=== PATIENT | male | born 1965 | race Caucasian/White ===

== ENCOUNTER 2020-09-11 10:42 | Inpatient (IN) ==
[2020-09-11 11:48] LABS: Basophils # (auto) 0.01 K/uL (0-0.2); Basophils % (auto) 0.2 %; Eosinophils # (auto) 0.05 K/uL (0-0.5); Eosinophils % (auto) 1.1 %; Hematocrit (blood only) 33.5 % (42-52); Hemoglobin 10.2 g/dL (14.0-18.0); Immature Granulocytes # (auto) 0.01 K/uL (0.00-0.02); Immature Granulocytes % (auto) 0.2 %; Lymphocytes # (auto) 1.14 K/uL (1.2-3.4); Lymphocytes % (auto) 24.3 %; Mean Corpuscular Hemoglobin 24.6 pg (25-34); Mean Corpuscular Hgb Conc 30.4 g/dL (32-36); Mean Corpuscular Volume 80.9 fL (80-100); Mean Platelet Volume 8.9 fL (7.4-10.4); Monocytes # (auto) 0.45 K/uL (0.11-0.59); Monocytes % (auto) 9.6 %; Neutrophils # (auto) 3.04 K/uL (1.4-6.5); Neutrophils % (auto) 64.6 %; Platelet Count 408 K/uL (130-400); RDW Coefficient of Variation 16.2 % (11.5-14.5); RDW Standard Deviation 47.3 fL (36.4-46.3); Red Blood Count 4.14 M/uL (4.7-6.1)
--- NOTE | 2020-09-11 12:06 | XRay Report ---
XR chest 1V portable CLINICAL HISTORY: Chest Pain COMPARISON STUDY: No previous studies for comparison. FINDINGS: Patient is rotated. There is mild right basilar opacity. Lungs are clear. There is no pneum othorax or pleural effusion. Cardiac size is normal. Mediastinal contours are normal. There is no monserrat dence for pulmonary edema. IMPRESSION: Mild right basilar opacity. Atelectasis is favored although an infectious process could appear similar. ACT 112: Negative or not required by law. Electronically signed by: Juan Carlos Chan M.D. 09/11/2020 12:04 PM
[2020-09-11 12:10] LABS: Alanine Aminotransferase 22 U/L (12-78); Albumin Level 3.1 gm/dl (3.4-5.0); Aspartate Aminotransferase 15 U/L (15-37); BUN Creatinine Ratio 23.9 (10-20); Blood Urea Nitrogen 14 mg/dl (7-18); Calcium 8.8 mg/dl (8.5-10.1); Carbon Dioxide 30 mmol/L (21-32); Chloride 106 mmol/L (98-107); Creatinine Clr Calc Pharmacy 191.4 ml/min; Est GFR (Non-African American) 115.6 ml/min; Glucose 107 mg/dl (70-99); Lipase 60 U/L (73-393); Potassium 4.1 mmol/L (3.5-5.1); Sodium 140 mmol/L (136-145)
[2020-09-11 12:15] LABS: Albumin Globulin Ratio 0.7 (0.9-2); Alkaline Phosphatase 93 U/L (45-117); Bilirubin,Total 0.3 mg/dl (0.2-1); Globulin 4.6 gm/dl (2.5-4.0); Total Protein 7.7 gm/dl (6.4-8.2); Troponin I < 0.015 ng/ml (0-0.045)
[2020-09-11 12:22] LABS: Partial Thromboplastin Ratio 1.1; Partial Thromboplastin Time 29.6 Seconds (21.0-31.0); Prothrombin Time 10.4 Seconds (9.0-12.0)
[2020-09-11] MEDS ORDERED: OPTIRAY 320 125ml IV ONE (12:42)
--- NOTE | 2020-09-11 13:28 | CT Scan Report ---
CT ANGIOGRAPHY OF THE CHEST, PULMONARY EMBOLUS PROTOCOL CLINICAL HISTORY: Chest pain. Shortness of breath. Evaluate for pulmonary embolus. COMPARISON STUDY: Chest radiograph performed earlier today. TECHNIQUE: Following IV administration of Optiray, helical axial images of the chest were obtained ut ilizing the pulmonary embolus protocol. Maximal intensity projections and sagittal and coronal refor mats were viewed on an independent 3D workstation. IV contrast was administered without complication . Automated exposure control was utilized for the study. A dose lowering technique was utilized adh ering to the principles of ALARA. CT DOSE: 2016.54 mGy.cm FINDINGS: Left glenohumeral joint effusion is noted. This contains multiple calcifications. This is likely degenerative. No pulmonary emboli are identified. There is no thoracic aortic dissection. Mild cardiomegaly is noted. No enlarged thoracic lymph nodes are present. There is no consolidation to sung ggest pneumonia. Note is made of right chest wall infiltration and fluid which involves the right low er chest wall and upper abdominal musculature. No soft tissue gas is present. No fluid collection is identified. There are postoperative findings within the mid to lower cervical spine and the upper tho racic spine. A 1.7 cm right apical irregular opacity is noted. There is also mild left upper lobe par amediastinal opacity. IMPRESSION: 1. No pulmonary emboli identified. 2. No consolidation to suggest pneumonia. 3. Moderate right chest wall infiltration and fluid involving the musculature of the right lower ches t wall and right upper abdomen. The findings are nonspecific but favor an infectious or inflammatory process in the absence of recent trauma. Findings discussed with Dr. Hawk at time of dictation. 4. Bilateral upper lobe paramediastinal opacity which favors post radiation change. Follow up chest C T in 6 months to ensure stability is recommended. 5. Left glenohumeral joint effusion. This is likely degenerative. ACT 112: Negative or not required by law. Electronically signed by: Juan Carlos Chan M.D. 09/11/2020 1:26 PM
--- NOTE | 2020-09-11 13:33 | Electrocardiogram Report ---
Test Reason : Blood Pressure : / mmHG Vent. Rate : 082 BPM Atrial Rate : 082 BPM P-R Int : 140 ms QRS Dur : 072 ms QT Int : 356 ms P-R-T Axes : 050 -18 -01 degrees QTc Int : 415 ms Poor data quality, interpretation may be adversely affected Normal sinus rhythm Minimal voltage criteria for LVH, may be normal variant Nonspecific ST abnormality Abnormal ECG No previous ECGs available Confirmed by Louie Cruz ([id number]) on 09/11/2020 1:33:04 PM Referred By: REFERRED SELF Confirmed By:Louie Cruz
--- NOTE | 2020-09-11 13:48 | CT Scan Report ---
CT OF THE ABDOMEN AND PELVIS WITH CONTRAST CLINICAL HISTORY: sob, enlarging abd COMPARISON STUDY: None. TECHNIQUE: Following IV administration of Optiray, axial images of the abdomen and pelvis were obtain ed from the lung bases to the proximal femurs. Images were reviewed in the axial, sagittal, and coron al planes. IV contrast was administered without complication. Automated exposure control was utilize d for the study. A dose lowering technique was utilized adhering to the principles of ALARA. FINDINGS: Please note that the chest CT will be reported separately. Note is made of moderate infilt ration of the right lower chest wall and right upper abdominal wall which involves the underlying mus culature. No soft tissue gas is present. No well-defined collection is identified to suggest an absce ss. There is muscular enhancement. The liver, adrenal glands and pancreas are unremarkable. Mild sple nomegaly is noted. Several left renal lesions are too small to characterize. There is no hydronephros is. There is no evidence for a bowel obstruction. Bladder is distended. The appendix is normal. Calib er and wall thickness of small and large bowel are normal. Note is made of infiltration within the mu scular adjacent to the right hip as well as the overlying soft tissues. There are suspected multiple rim enhancing fluid collections within the musculature, including a 3.1 cm collection within the righ t gluteus medius. There is a right hip joint effusion. Underlying bone appears intact. There is an ad ditional rim-enhancing fluid collection measuring approximately 3.9 cm within the vastus lateralis. T here is suspected cholelithiasis. IMPRESSION: 1. Right hip joint effusion with moderate inflammation involving the adjacent right hip musculature a nd overlying soft tissues. Multiple rim-enhancing intramuscular fluid collections, as described above . Although sterility cannot be assessed by CT, the findings favor an infectious process. An inflammat ory process could appear similar. Findings discussed with Dr. Hawk at time of dictation. 2. Additional apparent inflammation involving the right lower chest wall and right upper abdominal wa ll with involvement of the underlying musculature. Muscular enhancement without well-defined fluid co llection to suggest abscess. This also favors an infectious or inflammatory process. 3. No bowel obstruction. No bowel wall thickening. Normal appendix. ACT 112: Negative or not required by law. Electronically signed by: Juan Carlos Chan M.D. 09/11/2020 1:47 PM
[2020-09-11] MEDS ORDERED: CEFEPIME 2,000 MG/20 ML VIAL IV STA (13:57)
--- NOTE | 2020-09-11 15:01 | Emergency Department Note ---
History of Present Illness General Chief complaint: Shortness of Breath/Dyspnea Time Seen by Provider: 09/11/20 11:12 History of Present Illness 55-year-old male presents to the ED with a chief complaint of some shortness of breath. The patient states that he has been told in the past that he has had hepatosplenomegaly for the past 6 to 9 months. Today he states that he awoke and was not able to get his air very good. He states that it felt like something was pushing up on his left side of his diaphragm keeping him from getting a good excursion of air. 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 He also reports decreased sensation in his lower extremities. He has no other complaints at this time. Home Medications Medication Instructions Recorded Confirmed Type ascorbic acid (vitamin C) 1,000 mg 1 g PO QAM 07/09/18 09/11/20 History tablet (Vitamin C) furosemide 20 mg tablet 40 mg PO DAILY PRN 07/09/18 09/11/20 History magnesium oxide 400 mg PO 3XWK 07/09/18 09/11/20 History pyridoxine (vitamin B6) 100 mg 100 mg PO QAM 07/09/18 09/11/20 History tablet tizanidine 4 mg tablet 4 mg PO HS 07/09/18 09/11/20 History omeprazole 40 mg capsule,delayed 40 mg PO QPM 08/18/18 09/11/20 History release tamsulosin 0.4 mg capsule 0.4 mg PO HS 08/18/18 09/11/20 History acetaminophen 325 mg capsule 650 mg PO Q6H PRN 09/18/18 09/11/20 History (Tylenol) diphenhydramine 25 2 tab PO HS PRN 09/11/20 09/11/20 History mg-acetaminophen 500 mg tablet (Tylenol PM Extra Strength) Allergies Allergy/AdvReac Type Severity Reaction Status Date / Time amantadine Allergy Severe CHEST Verified 09/11/20 11:51 PAIN, ANXIETY vancomycin Allergy Severe Rash Verified 09/11/20 11:51 Past Med/Surg History Medical History Anemia iron deficiency Chronic neck pain GERD (gastroesophageal reflux disease) 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 History of gastric ulcer Left arm numbness chronic s/p left arm surgery 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 (no further details)- paralyzed from the chest down initially which sign ificantly improved with (able to walk with crunches) with therapy, increased LE weakness 2007 and now patient wheelchair bound felt 2/2 nerve damage Surgical History H/O bursectomy left elbow H/O cervical spine surgery 1990 (benign cystectomy) + scar tissue removal H/O eye surgery foreign body (metal) removal from left eye History of esophagogastroduodenoscopy (EGD) EGD: 07/16/18: [facility] sedation at [facility] Family History Other No family history of adverse response to anesthesia Social History Smoking Status: Never smoker Second Hand Exposure: Yes (parents smoked); Hx Alcohol Use: Yes Alcohol type: hard liquor Hx Substance Use: No Preferred Language: Serbian Communication Ability: Effective Concession Manager Required: No Beliefs That Will Affect Care: None Current Living Situation: Spouse and Family Current Living Situation Comment: Lives with and daughter and 1 granddaughter Feels Safe at Home: Yes Assistive Devices: Glasses and Walker Review of Systems As above otherwise negative for 10 systems Physical Exam Vital Signs Vital Signs - 24 hr 09/11/20 10:54 09/11/20 11:30 09/11/20 12:00 Temperature 36.5 C Temperature Source Oral Pulse Rate 80 Pulse Rate [Apical] 78 74 Pulse Rate from SpO2 Sensor Respiratory Rate 20 20 20 Respiratory Effort / Characteristics Non-Labored Spontaneous Non-Labored Spontaneous Non-Labored Respiratory Depth Normal Normal Normal Respiratory Pattern Regular Regular Regular Blood Pressure 139/80 Blood Pressure [Right Arm] 141/82 H 100/76 Blood Pressure Mean 99 Blood Pressure Mean [Right Arm] 101 84 Pulse Oximetry 98 96 95 Oxygen Delivery Method Room Air Room Air Room Air Sepsis Recent Fever Within 48 Hours No Sepsis New/Unexplained Change in Mental Status N/A Sepsis Action Taken by Nursing No Action Required 09/11/20 12:30 09/11/20 13:01 Temperature Temperature Source Pulse Rate 82 Pulse Rate [Apical] 78 Pulse Rate from SpO2 Sensor 81 Respiratory Rate 20 24 Respiratory Effort / Characteristics Non-Labored Spontaneous Respiratory Depth Normal Respiratory Pattern Regular Blood Pressure 116/57 L Blood Pressure [Right Arm] 115/76 Blood Pressure Mean 76 Blood Pressure Mean [Right Arm] 89 Pulse Oximetry 96 98 Oxygen Delivery Method Room Air Sepsis Recent Fever Within 48 Hours Sepsis New/Unexplained Change in Mental Status Sepsis Action Taken by Nursing CONSTITUTIONAL/VITAL SIGNS: Reviewed / noted above. GENERAL: Non-toxic in appearance. INTEGUMENTARY: Warm, dry, and [place]. HEAD: Normocephalic. EYES: without scleral icterus or trauma. ENT/OROPHARYNX: clear and moist. LYMPHADENOPATHY/NECK: Is supple without lymphadenopathy or meningismus. RESPIRATORY: Lungs clear and equal. CARDIOVASCULAR: Regular rate and rhythm. GI/ABDOMEN: Soft and nontender. Abdomen seems to be abnormally shaped with increased distention on the left compared to the right. EXTREMITIES: Warm and well perfused. Right lower extremity is more pinkish or erythematous than the left with some increased warmth. There is a small wound in the popliteal region from skin touching skin because the patient's leg is loosely bent. The patient also has a healing wound in his right elbow from a previous injury where he states that he hit his wheelchair with his elbow. BACK: No CVA tenderness. NEUROLOGICAL: Intact without focal deficits. PSYCHIATRIC: normal affect. MUSCULOSKELETAL: Normally developed with good muscle tone. TRIAGE NURSING DOCUMENTATION REVIEWED. Course Administered Medications Discontinued Medications Cefepime HCl (Maxipime) 2,000 mg in 20 mls @ 5 mls/min IV NOW STA; Protocol Stop: 09/11/20 14:00 Last Admin: 09/11/20 14:11 Dose: 5 mls/min Documented by: [id number] Ioversol (Optiray 320 125ml) 120 ml IV ONCE ONE Stop: 09/11/20 12:43 Last Admin: 09/11/20 12:42 Dose: 120 ml Documented by: [id number] Medical Decision Making Differential Diagnosis The differential was considered includes acute myocardial infarction, acute coronary syndrome, myocarditis, pericarditis, pericardial effusions /tamponad, esophageal perforation, pulmonary embolism, pneumonia, pneumothorax, cardiomyopathy, congestive heart, anemia , COPD/asthma exacerbation. Medical Records Attestation: I reviewed the patient's medical records. Home Medications Current Medication List: was personally reviewed by me Laboratory Data Result diagrams: 09/11/20 11:33 09/11/20 11:33 Lab Results 09/11/20 09/11/20 09/11/20 Range/Units 11:30 11:33 11:33 WBC 4.70 L (4.8-10.8) K/uL RBC 4.14 L (4.7-6.1) M/uL Hgb 10.2 L (14.0-18.0) g/dL Hct 33.5 L (42-52) % MCV 80.9 (80-100) fL MCH 24.6 L (25-34) pg MCHC 30.4 L (32-36) g/dL RDW Std Deviation 47.3 H (36.4-46.3) fL RDW Coeff of Brendon 16.2 H (11.5-14.5) % Plt Count 408 H (130-400) K/uL MPV 8.9 (7.4-10.4) fL Immature Gran % (Auto) 0.2 % Neut % (Auto) 64.6 % Lymph % (Auto) 24.3 % Avery % (Auto) 9.6 % Eos % (Auto) 1.1 % Baso % (Auto) 0.2 % Neut # (Auto) 3.04 (1.4-6.5) K/uL Lymph # (Auto) 1.14 L (1.2-3.4) K/uL Avery # (Auto) 0.45 (0.11-0.59) K/uL Eos # (Auto) 0.05 (0-0.5) K/uL Baso # (Auto) 0.01 (0-0.2) K/uL Immature Gran # (Auto) 0.01 (0.00-0.02) K/uL ESR (0-20) mm/hr PT 10.4 (9.0-12.0) Seconds INR 1.0 (0.9-1.1) APTT 29.6 (21.0-31.0) Seconds PTT Ratio 1.1 Sodium 140 (136-145) mmol/L Potassium 4.1 (3.5-5.1) mmol/L Chloride 106 (98-107) mmol/L Carbon Dioxide 30 (21-32) mmol/L Anion Gap 4.0 (3-11) BUN 14 (7-18) mg/dl Creatinine 0.59 L (0.6-1.4) mg/dl Est Cr Clr Drug Dosing 191.4 ml/min Est GFR ( Amer) 134.0 ml/min Est GFR (Non-Af Amer) 115.6 ml/min BUN/Creatinine Ratio 23.9 H (10-20) Glucose 107 H (70-99) mg/dl Calcium 8.8 (8.5-10.1) mg/dl Total Bilirubin 0.3 (0.2-1) mg/dl AST 15 (15-37) U/L ALT 22 (12-78) U/L Alkaline Phosphatase 93 (45-117) U/L Troponin I < 0.015 (0-0.045) ng/ml Total Protein 7.7 (6.4-8.2) gm/dl Albumin 3.1 L (3.4-5.0) gm/dl Globulin 4.6 H (2.5-4.0) gm/dl Albumin/Globulin Ratio 0.7 L (0.9-2) Lipase 60 L (73-393) U/L 09/11/20 Range/Units 11:33 WBC (4.8-10.8) K/uL RBC (4.7-6.1) M/uL Hgb (14.0-18.0) g/dL Hct (42-52) % MCV (80-100) fL MCH (25-34) pg MCHC (32-36) g/dL RDW Std Deviation (36.4-46.3) fL RDW Coeff of Brendon (11.5-14.5) % Plt Count (130-400) K/uL MPV (7.4-10.4) fL Immature Gran % (Auto) % Neut % (Auto) % Lymph % (Auto) % Avery % (Auto) % Eos % (Auto) % Baso % (Auto) % Neut # (Auto) (1.4-6.5) K/uL Lymph # (Auto) (1.2-3.4) K/uL Avery # (Auto) (0.11-0.59) K/uL Eos # (Auto) (0-0.5) K/uL Baso # (Auto) (0-0.2) K/uL Immature Gran # (Auto) (0.00-0.02) K/uL ESR 94 H (0-20) mm/hr PT (9.0-12.0) Seconds INR (0.9-1.1) APTT (21.0-31.0) Seconds PTT Ratio Sodium (136-145) mmol/L Potassium (3.5-5.1) mmol/L Chloride (98-107) mmol/L Carbon Dioxide (21-32) mmol/L Anion Gap (3-11) BUN (7-18) mg/dl Creatinine (0.6-1.4) mg/dl Est Cr Clr Drug Dosing ml/min Est GFR ( Amer) ml/min Est GFR (Non-Af Amer) ml/min BUN/Creatinine Ratio (10-20) Glucose (70-99) mg/dl Calcium (8.5-10.1) mg/dl Total Bilirubin (0.2-1) mg/dl AST (15-37) U/L ALT (12-78) U/L Alkaline Phosphatase (45-117) U/L Troponin I (0-0.045) ng/ml Total Protein (6.4-8.2) gm/dl Albumin (3.4-5.0) gm/dl Globulin (2.5-4.0) gm/dl Albumin/Globulin Ratio (0.9-2) Lipase (73-393) U/L Imaging Data Radiologist's Impression: Abdomen/Pelvis CT 09/11/20 11:26 CT OF THE ABDOMEN AND PELVIS WITH CONTRAST CLINICAL HISTORY: sob, enlarging abd COMPARISON STUDY: None. TECHNIQUE: Following IV administration of Optiray, axial images of the abdomen and pelvis were obtained from the lung bases to the proximal femurs. Images were reviewed in the axial, sagittal, and coronal planes. IV contrast was admi nistered without complication. Automated exposure control was utilized for the study. A dose lowering technique was utilized adhering to the principles of ALARA. FINDINGS: Please note that the chest CT will be reported separately. Note is made of moderate infiltration of the right lower chest wall and right upper abdominal wall which involves the underlying musculature. No soft tissue gas is present. No well-defined collection is identified to suggest an abscess. There is muscular enhancement. The liver, adrenal glands and pancreas are unremarkable. Mild splenomegaly is noted. Several left renal lesions are too small to characterize. There is no hydronephrosis. There is no evidence for a bowel obstruction. Bladder is distended. The appendix is normal. Caliber and wall thickness of small and large bowel are normal. Note is made of infiltration within the muscular adjacent to the right hip as well as the overlying soft tissues. There are suspected multiple rim enhancing fluid collections within the musculature, including a 3.1 cm collection within the right gluteus medius. There is a right hip joint effusion. Underlying bone appears intact. There is an additional rim-enhancing fluid collection measuring approximately 3.9 cm within the vastus lateralis. There is suspected cholelithiasis. IMPRESSION: 1. Right hip joint effusion with moderate inflammation involving the adjacent right hip musculature and overlying soft tissues. Multiple rim-enhancing intramuscular fluid collections, as described above. Although sterility cannot be assessed by CT, the findings favor an infectious process. An inflammatory process could appear similar. Findings discussed with Dr. Hawk at time of dictation. 2. Additional apparent inflammation involving the right lower chest wall and r ight upper abdominal wall with involvement of the underlying musculature. Muscular enhancement without well-defined fluid collection to suggest abscess. This also favors an infectious or inflammatory process. 3. No bowel obstruction. No bowel wall thickening. Normal appendix. ACT 112: Negative or not required by law. Electronically signed by: Juan Carlos Chan M.D. 09/11/2020 1:47 PM Chest X-Ray 09/11/20 11:26 XR chest 1V portable CLINICAL HISTORY: Chest Pain COMPARISON STUDY: No previous studies for comparison. FINDINGS: Patient is rotated. There is mild right basilar opacity. Lungs are clear. There is no pneumothorax or pleural effusion. Cardiac size is normal. Mediastinal contours are normal. There is no evidence for pulmonary edema. IMPRESSION: Mild right basilar opacity. Atelectasis is favored although an infectious process could appear similar. ACT 112: Negative or not required by law. Electronically signed by: Juan Carlos Chan M.D. 09/11/2020 12:04 PM Chest CTA 09/11/20 11:27 CT ANGIOGRAPHY OF THE CHEST, PULMONARY EMBOLUS PROTOCOL CLINICAL HISTORY: Chest pain. Shortness of breath. Evaluate for pulmonary embolus. COMPARISON STUDY: Chest radiograph performed earlier today. TECHNIQUE: Following IV administration of Optiray, helical axial images of the chest were obtained utilizing the pulmonary embolus protocol. Maximal intensity projections and sagittal and coronal reformats were viewed on an independent 3D workstation. IV contrast was administered without complication. Automated exposure control was utilized for the study. A dose lowering technique was utilized adhering to the principles of ALARA. CT DOSE: 2016.54 mGy.cm FINDINGS: Left glenohumeral joint effusion is noted. This contains multiple calcifications. This is likely degenerative. No pulmonary emboli are identified. There is no thoracic aortic dissection. Mild cardiomegaly is noted. No enlarged thoracic lymph nodes are present. There is no consolidation to suggest pneumonia. Note is made of right chest wall infiltration and fluid which involves the right lower chest wall and upper abdominal musculature. No soft tissue gas is present. No fluid collection is identified. There are post operative findings within the mid to lower cervical spine and the upper thoracic spine. A 1.7 cm right apical irregular opacity is noted. There is also mild left upper lobe paramediastinal opacity. IMPRESSION: 1. No pulmonary emboli identified. 2. No consolidation to suggest pneumonia. 3. Moderate right chest wall infiltration and fluid involving the musculature of the right lower chest wall and right upper abdomen. The findings are nonspecific but favor an infectious or inflammatory process in the absence of recent trauma. Findings discussed with Dr. Hawk at time of dictation. 4. Bilateral upper lobe paramediastinal opacity which favors post radiation araujo ge. Follow up chest CT in 6 months to ensure stability is recommended. 5. Left glenohumeral joint effusion. This is likely degenerative. ACT 112: Negative or not required by law. Electronically signed by: Juan Carlos Chan M.D. 09/11/2020 1:26 PM ECG Data Additional Comments: Twelve-lead EKG: Per my interpretation there is normal sinus rhythm at a rate of 82. No ST elevation. No PVCs. Normal QTC. MDM Narrative Patient presents to the ED with a chief complaint of dyspnea. The patient's EKG shows a normal sinus rhythm. CBC and chemistry panel was unremarkable. Troponin was negative. Chest x-ray did not show acute process. CT scan of the chest reveals a moderate right chest wall infiltration and fluid involving the musculature of the right lower chest wall and right upper abdomen. Nonspecific findings but could indicate infectious or inflammatory process. CT scan of the pelvis was performed as well. There appears to be some right hip joint effusion with moderate inflammation involving the adjacent right hip musculature and soft tissue with some ring-enhancing collections of fluid suggestive of infectious etiology. The patient was started on IV cefepime. Vital signs are stable. I spoke with the hospitalist, who will see the patient for further inpatient evaluation and care. Impression & Plan Cellulitis and abscess of right leg, Abdominal infection Discharge Plan Visit Data Chief Complaint: Shortness of Breath/Dyspnea ED Provider: Harsh Hawk Discharge Problem: Cellulitis and abscess of right leg, Abdominal infection Patient Disposition: Being Evaluated by Hospitalist Forms Stand Alone Forms: My [facility] Prescriptions Prescriptions: No Action ascorbic acid (vitamin C) [Vitamin C] 1,000 mg Tablet 1 g PO QAM RF: 0 tizanidine 4 mg Tablet 4 mg PO HS RF: 0 furosemide 20 mg Tablet 40 mg PO DAILY PRN (Reason: Fluid Retention) RF: 0 pyridoxine (vitamin B6) 100 mg Tablet 100 mg PO QAM RF: 0 magnesium oxide 400 mg magnesium Tablet 400 mg PO [id number] RF: 0 omeprazole 40 mg Capsule,Delayed Release(Dr/Ec) 40 mg PO QPM RF: 0 tamsulosin 0.4 mg Capsule 0.4 mg PO HS RF: 0 acetaminophen [Tylenol] 325 mg Capsule 650 mg PO Q6H PRN (Reason: Pain) RF: 0 diphenhydramine-acetaminophen [Tylenol PM Extra Strength] 25-500 mg Tablet 2 tab PO HS PRN (Reason: Sleep) RF: 0 Referrals Referrals: Alexis Yost MD [Primary Care Provider] -
[2020-09-11 15:20] LABS: C Reactive Protein 3.42 mg/dl (0-0.29)
--- NOTE | 2020-09-11 15:56 | History & Physical Report ---
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 He said that his symptoms improved after passing some flatulence. Pt said that he has been having a lot of swelling in his lower extremities. He said that he was evaluated by his PCP few month ago and was placed on Lasix with no improvement. He said that few months ago he was able to crawled or stood on his legs, but now he is unable to do them. CT Ches showed moderate right chest wall infiltration and fluid involving the musculature of the right lower chest wall and right upper abdomen. The findings are nonspecific but favor an infectious or inflammatory process in the absence of recent trauma. CT abdomen and pelvis showed right hip joint effusion with moderate inflammation involving the adjacent right hip musculature and overlying soft tissues. Multiple rim-enhancing intramuscular fluid collections. Pt was started on Rocephin and Daptomycin IV. Will start on IV lasix 40mg. Will consult ortho to eval for the ring enhancing intramuscular fluid collections. Will monitor closely for sign of infection. Continue monitor closely. MD Rosalinda (3) Swelling of both lower extremities: Plan: Likely in setting of dependent edema, versus underlying inflammatory process Had echocardiogram as outpatient which revealed EF 60 to 64%, mild TR, mild pulmonary hypertension on 08/17/2020, no evidence of heart failure Encourage leg elevation and NIRMAL hose Continue daily Lasix (4) Ependymoma: (5) Chronic paraplegia: (6) Spastic hemiparesis: Plan: Status post surgical resection and XRT in the Currently following [place] neurosurgery, to reestablish with new provider in September Continue tizanidine at bedtime (7) Anemia: Plan: Documented iron deficiency in epic H&H 10.2 and 33.5 No signs or symptoms of bleeding Monitor (8) GERD (gastroesophageal reflux disease): Plan: continue PPI (9) DVT prophylaxis: Plan: lovenox sq q12 Dispo: med tele PCP: Priyank FULL CODE Pt was seen and examined in collaboration with Dr. Tellez, please see addendum History of Present Illness Chief Complaint: Fullness in left upper quadrant and feeling of inability to take deep breath prior to arrival. 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 Patient's is at bedside who also helps elicit history. He states over the past 6 months he has noticed a gradual increase in abdominal girth and increase in lower extremity swelling. He was seen and evaluated by PCP at the end of May and was placed on daily Lasix. He has been doing this without significant improvement. He also has noticed increase in weight. Due to being wheelchair-bound he is unable to elevate lower extremities and he is unable to wear compression stockings at home due to it being too tight. He was concerned this morning when he developed left upper quadrant fullness and shortness of breath; however, upon arriving to ED he did pass flatulence x5 which alleviated this pressure. He does elicit that he has underlying hepatosplenomegaly for which she is to see gastroenterology in September for. He was concerned this could be related to this. He denies any recent fever, chills, sweats, lightheadedness, dizziness, headache, change in vision, chest pain, shortness of breath, cough, URI symptoms, nausea, vomiting, abdominal pain. He also denies any musculoskeletal pain however he does state from the waist down he has inability to feel pain. feels that his right lower extremity is more red and warm compared to the left. This was just noticed today. In ED patient remained hemodynamically stable and afebrile. Lab work notable for WBC 4.70, H&H 10.2 and 33.5, platelet 408, ESR 94, CRP 3.42, BUN 14, creatinine 0.59, procalcitonin WNL. He underwent CT chest to rule out PE and CT abdomen pelvis secondary to abdominal fullness and distended abdomen. Chest CT revealed Moderate right chest wall infiltration and fluid involving the musculature of the right lower chest wall and right upper abdomen. The findings are nonspecific but favor an infectious or inflammatory process in the absence of recent trauma. CT a/p revealed . Right hip joint effusion with moderate inflammation involving the adjacent right hip musculature and overlying soft tissues. Multiple rim-enhancing intramuscular fluid collections, as described above. Although sterility cannot be assessed by CT, the findings favor an infectious process. An inflammatory process could appear similar. He was started on IV cefepime for underlying cellulitis. Allergies Allergy/AdvReac Type Severity Reaction Status Date / Time amantadine Allergy Severe CHEST Verified 09/11/20 11:51 PAIN, ANXIETY vancomycin Allergy Severe Rash Verified 09/11/20 11:51 Home Medications Medication Instructions Recorded Confirmed Type ascorbic acid (vitamin C) 1,000 mg 1 g PO QAM 07/09/18 09/11/20 History tablet (Vitamin C) furosemide 20 mg tablet 40 mg PO DAILY PRN 07/09/18 09/11/20 History magnesium oxide 400 mg PO 3XWK 07/09/18 09/11/20 History pyridoxine (vitamin B6) 100 mg 100 mg PO QAM 07/09/18 09/11/20 History tablet tizanidine 4 mg tablet 4 mg PO HS 07/09/18 09/11/20 History omeprazole 40 mg capsule,delayed 40 mg PO QPM 08/18/18 09/11/20 History release tamsulosin 0.4 mg capsule 0.4 mg PO HS 08/18/18 09/11/20 History acetaminophen 325 mg capsule 650 mg PO Q6H PRN 09/18/18 09/11/20 History (Tylenol) diphenhydramine 25 2 tab PO HS PRN 09/11/20 09/11/20 History mg-acetaminophen 500 mg tablet (Tylenol PM Extra Strength) Past Med/Surg History Medical History Anemia iron deficiency Chronic neck pain Ependymoma GERD (gastroesophageal reflux disease) 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 History of gastric ulcer Left arm numbness chronic s/p left arm surgery Spastic hemiparesis 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 (no further details)- paralyzed from the chest down initially which significantly improved with (able to walk with crunches) with therapy, increased LE weakness 2007 and now patient wheelchair bound felt 2/2 nerve damage Surgical History H/O bursectomy left elbow H/O cervical spine surgery 1990 (benign cystectomy) + scar tissue removal H/O eye surgery foreign body (metal) removal from left eye History of esophagogastroduodenoscopy (EGD) EGD: 07/16/18: MAC sedation at [facility] Family History Father Hypertension Other No family history of adverse response to anesthesia Social History Smoking Status: Never smoker Second Hand Exposure: No; Do You Dip or Chew Tobacco: No; Tobacco Cessation Education Requested by Patient: No Hx Alcohol Use: No Hx Substance Use: No Preferred Language: Comoran Communication Ability: Effective Infrastructure Engineer Required: No Beliefs That Will Affect Care: None Current Living Situation: Spouse Current Living Situation Comment: Lives with and daughter and 1 granddaughter Other Information That Helps Us Care for You: No Feels Safe at Home: Yes Safety Concerns: Feels Safe At This Time Assistive Devices: Wheelchair Review of Systems Review of Systems: All systems reviewed & are unremarkable except as noted in HPI & below Physical Exam Physical Exam: Constitutional: WD/WN, M, vitals as above, NAD, sitting up in bed, pleasant, conversing easily Head: Normocephalic, Atraumatic Eyes: PERRL, conjunctivae normal, anicteric sclerae ENMT: external ear and nose normal, oropharynx normal Neck: trachea midline, no thyromegaly normal visual inspection Respiratory: normal respiratory effort, lungs clear to auscultation, no wheeze, rales, rhonchi. Normal insp/exp effort, no accessory muscle use Cardiovascular: RRR, no murmur, significant bilateral lower extremity edema, +4 to right and +3 to left, right lower extremity with warmth and erythema extending to right knee Vessels: no JVD or carotid bruit Chest: normal inspection of chest Abdomen: Protuberant and distended abdomen, firm, normal bowel sounds, soft, nontender, hepatomegaly appreciated Musculoskeletal: no cyanosis or clubbing, paraparesis to bilateral lower extremities, hyperreflexic Skin: no rashes, warm and dry normal turgor Neurologic: PERRL, EOMI, accommodation nl, no face palsy, no dysarthria CN's II-XI intact bilaterally and moves all extremities Psychiatric: A+Ox3, euthymic affect Lymphatic: no cervical or axillary lymphadenopathy : deferred Results & Data Results & Data ([facility]) Vital Signs (Past 12 Hours) Vital Signs Temp Pulse Pulse Resp BP BP Pulse Ox 09/11/20 14:30 80 24 112/68 98 09/11/20 14:01 76 15 122/65 99 09/11/20 13:30 139/79 99 09/11/20 13:01 82 24 98 09/11/20 12:30 78 20 116/57 L 115/76 96 09/11/20 12:00 74 20 100/76 95 09/11/20 11:30 78 20 141/82 H 96 09/11/20 10:54 36.5 C 80 20 139/80 98 Diagnostic Findings Abdomen/Pelvis CT 09/11/20 11:26 CT OF THE ABDOMEN AND PELVIS WITH CONTRAST CLINICAL HISTORY: sob, enlarging abd COMPARISON STUDY: None. TECHNIQUE: Following IV administration of Optiray, axial images of the abdomen and pelvis were obtained from the lung bases to the proximal femurs. Images were reviewed in the axial, sagittal, and coronal planes. IV contrast was administered without complication. Automated exposure control was utilized for the study. A dose lowering technique was utilized adhering to the principles of ALARA. FINDINGS: Please note that the chest CT will be reported separately. Note is made of moderate infiltration of the right lower chest wall and right upper abdominal wall which involves the underlying musculature. No soft tissue gas is present. No well-defined collection is identified to suggest an abscess. There is muscular enhancement. The liver, adrenal glands and pancreas are unremarkable. Mild splenomegaly is noted. Several left renal lesions are too small to characterize. There is no hydronephrosis. There is no evidence for a bowel obstruction. Bladder is distended. The appendix is normal. Caliber and wall thickness of small and large bowel are normal. Note is made of infiltration within the muscular adjacent to the right hip as well as the overlying soft tissues. There are suspected multiple rim enhancing fluid collections within the musculature, including a 3.1 cm collection within the right gluteus medius. There is a right hip joint effusion. Underlying bone appears intact. There is an additional rim-enhancing fluid collection measuring approximately 3.9 cm within the vastus lateralis. There is suspected cholelithiasis. IMPRESSION: 1. Right hip joint effusion with moderate inflammation involving the adjacent right hip musculature and overlying soft tissues. Multiple rim-enhancing i ntramuscular fluid collections, as described above. Although sterility cannot be assessed by CT, the findings favor an infectious process. An inflammatory process could appear similar. Findings discussed with Dr. Hawk at time of dictation. 2. Additional apparent inflammation involving the right lower chest wall and right upper abdominal wall with involvement of the underlying musculature. Mus cular enhancement without well-defined fluid collection to suggest abscess. This also favors an infectious or inflammatory process. 3. No bowel obstruction. No bowel wall thickening. Normal appendix. ACT 112: Negative or not required by law. Electronically signed by: Juan Carlos Chan M.D. 09/11/2020 1:47 PM Chest X-Ray 09/11/20 11:26 XR chest 1V portable CLINICAL HISTORY: Chest Pain COMPARISON STUDY: No previous studies for comparison. FINDINGS: Patient is rotated. There is mild right basilar opacity. Lungs are clear. There is no pneumothorax or pleural effusion. Cardiac size is normal. Mediastinal contours are normal. There is no evidence for pulmonary edema. IMPRESSION: Mild right basilar opacity. Atelectasis is favored although an infe ctious process could appear similar. ACT 112: Negative or not required by law. Electronically signed by: Juan Carlos Chan M.D. 09/11/2020 12:04 PM Chest CTA 09/11/20 11:27 CT ANGIOGRAPHY OF THE CHEST, PULMONARY EMBOLUS PROTOCOL CLINICAL HISTORY: Chest pain. Shortness of breath. Evaluate for pulmonary embolus. COMPARISON STUDY: Chest radiograph performed earlier today. TECHNIQUE: Following IV administration of Optiray, helical axial images of the chest were obtained utilizing the pulmonary embolus protocol. Maximal intensity projections and sagittal and coronal reformats were viewed on an independent 3D workstation. IV contrast was administered without complication. Automated exposure control was utilized for the study. A dose lowering technique was utilized adhering to the principles of ALARA. CT DOSE: 2016.54 mGy.cm FINDINGS: Left glenohumeral joint effusion is noted. This contains multiple calcifications. This is likely degenerative. No pulmonary emboli are identified. There is no thoracic aortic dissection. Mild cardiomegaly is noted. No enlarged thoracic lymph nodes are present. There is no consolidation to suggest p neumonia. Note is made of right chest wall infiltration and fluid which involves the right lower chest wall and upper abdominal musculature. No soft tissue gas is present. No fluid collection is identified. There are postoperative findings within the mid to lower cervical spine and the upper thoracic spine. A 1.7 cm right apical irregular opacity is noted. There is also mild left upper lobe paramediastinal opacity. IMPRESSION: 1. No pulmonary emboli identified. 2. No consolidation to suggest pneumonia. 3. Moderate right chest wall infiltration and fluid involving the musculature of the right lower chest wall and right upper abdomen. The findings are nonspecific but favor an infectious or inflammatory process in the absence of recent trauma. Findings discussed with Dr. Hawk at time of dictation. 4. Bilateral upper lobe paramediastinal opacity which favors post radiation change. Follow up chest CT in 6 months to ensure stability is recommended. 5. Left glenohumeral joint effusion. This is likely degenerative. ACT 112: Negative or not required by law. Electronically signed by: Juan Carlos Chan M.D. 09/11/2020 1:26 PM Medications Administered Medication List Discontinued Medications Cefepime HCl (Maxipime) 2,000 mg in 20 mls @ 5 mls/min IV NOW STA; Protocol Stop: 09/11/20 14:00 Last Admin: 09/11/20 14:11 Dose: 5 mls/min Documented by: [id number] Ioversol (Optiray 320 125ml) 120 ml IV ONCE ONE Stop: 09/11/20 12:43 Last Admin: 09/11/20 12:42 Dose: 120 ml Documented by: [id number] ECG Rate (beats per minute): 82 Rhythm: normal sinus Additional Comments: very poor quality ecg will repeat COVID-19 Results Results COVID-19 Adm Lab Results: RBC 4.10 M/uL (4.7-6.1) L 09/15/20 WBC 6.12 K/uL (4.8-10.8) 09/15/20 Hgb 10.1 g/dL (14.0-18.0) L 09/15/20 Hct 33.3 % (42-52) L 09/15/20 Plt Count 339 K/uL (130-400) 09/15/20 Neutrophils (%) (Auto) 68.9 % 09/12/20 Lymphocytes (%) (Auto) 19.2 % 09/12/20 Monocytes # (Auto) 0.61 K/uL (0.11-0.59) H 09/12/20 Eosinophils # (Auto) 0.04 K/uL (0-0.5) 09/12/20 Immature Granulocyte % (Auto) 0.2 % 09/12/20 Neutrophils # (Auto) 3.91 K/uL (1.4-6.5) 09/12/20 Lymphocytes # (Auto) 1.09 K/uL (1.2-3.4) L 09/12/20 Monocytes # (Auto) 0.61 K/uL (0.11-0.59) H 09/12/20 Eosinophils # (Auto) 0.04 K/uL (0-0.5) 09/12/20 Basophils # (Auto) 0.01 K/uL (0-0.2) 09/12/20 Immature Granulocyte # (Auto) 0.01 K/uL (0.00-0.02) 09/12/20 Na 138 mmol/L (136-145) 09/15/20 K 4.1 mmol/L (3.5-5.1) 09/15/20 Cl 102 mmol/L (98-107) 09/15/20 CO2 33 mmol/L (21-32) H 09/15/20 Anion Gap 3.0 (3-11) 09/15/20 BUN 27 mg/dl (7-18) H 09/15/20 Creatinine 0.59 mg/dl (0.6-1.4) L 09/15/20 BUN/Creatinine Ratio 45.5 (10-20) H 09/15/20 Glucose Level 99 mg/dl (70-99) 09/15/20 Ca 8.8 mg/dl (8.5-10.1) 09/15/20 Total Bilirubin 0.4 mg/dl (0.2-1) 09/12/20 AST/SGOT 14 U/L (15-37) L 09/12/20 ALT/SGPT 18 U/L (12-78) 09/12/20 Alkaline Phosphatase 86 U/L (45-117) 09/12/20 Total Protein 7.1 gm/dl (6.4-8.2) 09/12/20 Albumin 2.8 gm/dl (3.4-5.0) L 09/12/20 Globulin 4.3 gm/dl (2.5-4.0) H 09/12/20 Albumin/Globulin Ratio 0.6 (0.9-2) L 09/12/20 Total CK 292 U/L (39-308) 09/11/20 Troponin I < 0.015 ng/ml (0-0.045) 09/11/20 CRP 3.42 mg/dl (0-0.29) H 09/11/20 Procalcitonin 0.09 ng/ml (0-0.5) 09/15/20 PTT 29.6 Seconds (21.0-31.0) 09/11/20 INR 1.0 (0.9-1.1) 09/11/20 COVID-19 PCR NEGATIVE (Negative) 09/11/20 Chest X-Ray 09/11/20 Code Status & VTE Plan Code Status FULL CODE VTE Prophylaxis Plan VTE Prophylaxis will be ordered: Yes Supervising Physician Co-Signing Physician Notes Pt was seen and examined. Agreed with Cheli ALVAREZ exam, assessment and plan. 55-year-old male who has significant past medical history of cervical ependymoma status post surgical resection x2 and XRT with residual paraparesis and spastic hemiplegia, wheelchair-bound, iron deficiency anemia, GERD, obesity who presents with LUQ abdominal discomfort and SOB. Pt said that after he passed a few gas his symptom resolved. Currently denies any chest pain, CT Chest: Moderate right chest wall infiltration and fluid involving the musculature of the right lower chest wall and right upper abdomen. The findings are nonspecific but favor an infectious or inflammatory process in the absence of recent trauma. Findings discussed with Dr. Hawk at time of dictation. CT A/P: 1. Right hip joint effusion with moderate inflammation involving the adjacent right hip musculature and overlying soft tissues. Multiple rim- enhancing intramuscular fluid collections, as described above. Although sterility cannot be assessed by CT, the findings favor an infectious process. An inflammatory process could appear similar. Ck WNL, pro-Jorge WNL, WBC 4.70, ESR 94, CRP 3.42 Pt does not exhibit and R chest wall discomfort or R hip pain; however unable to feel pain in lower extremities secondary to paraplegia admit to med tele IV Rocephin and Daptomycin due to concern for cellulitis and abnormal findings on CT a/p and chest CT (pt with prior hx of MRSA per EPIC) elevated lower extremity, thigh high nirmal manrique Consult orthopedics due to abnormalities in CT
[2020-09-11] MEDS ORDERED: CONSULT PHARMACY STA (17:19)
[2020-09-11] MEDS ORDERED: MAGNESIUM HYDROXIDE SUSP 30 ML UDC PO PRN (18:08)
[2020-09-11] MEDS ORDERED: POLYETHYLENE (MIRALAX) 17 GM PACK PO PRN (18:08)
[2020-09-11] MEDS ORDERED: ONDANSETRON INJ 2 MG/ML 2 ML VIAL IV PRN (18:08)
[2020-09-11] MEDS ORDERED: ALUMINUM/MAGNESIUM SUSP 30 ML UDC PO PRN (18:08)
[2020-09-11] MEDS ORDERED: FUROSEMIDE 40 MG TAB PO SCH (18:30)
[2020-09-11] MEDS ORDERED: FUROSEMIDE 40 MG in SYRINGE 0 ML IV ONE (20:00)
[2020-09-11] MEDS ORDERED: FUROSEMIDE 40 MG/4 ML VIAL IV ONE (20:12)
[2020-09-11] MEDS: DAPTOmycin 375 MG in SYRINGE 0 ML IV SCH (21:04)
[2020-09-11] MEDS: PANTOprazole 40 MG TAB PO SCH (21:06)
[2020-09-11] MEDS: tiZANidine HCL 4 MG TABLET PO SCH (21:06)
[2020-09-11] MEDS: ENOXAPARIN INJ 40 MG/0.4 ML SYR SQ SCH (21:07)
[2020-09-11] MEDS: TAMSULOSIN HCL 0.4 MG CAP PO SCH (21:07)
[2020-09-12] MEDS: cefTRIAXone SODIUM 2,000 MG in DEXTROSE 5% 50 ML IV SCH ×2 (00:47→20:41)
[2020-09-12] MEDS: MAGNESIUM OXIDE 400 MG TAB PO SCH (08:11)
[2020-09-12] MEDS: ENOXAPARIN INJ 40 MG/0.4 ML SYR SQ SCH ×2 (08:11→21:35)
[2020-09-12] MEDS: POTASSIUM CHLORIDE 10 MEQ TABCR PO SCH (08:11)
[2020-09-12] MEDS: PYRIDOXINE HCL 50 MG TAB PO SCH (08:11)
[2020-09-12] MEDS: ASCORBIC ACID 500 MG TAB PO SCH (08:11)
[2020-09-12 08:12] LABS: Basophils # (auto) 0.01 K/uL (0-0.2); Basophils % (auto) 0.2 %; Eosinophils # (auto) 0.04 K/uL (0-0.5); Eosinophils % (auto) 0.7 %; Hemoglobin 9.7 g/dL (14.0-18.0); Immature Granulocytes # (auto) 0.01 K/uL (0.00-0.02); Immature Granulocytes % (auto) 0.2 %; Lymphocytes # (auto) 1.09 K/uL (1.2-3.4); Lymphocytes % (auto) 19.2 %; Mean Corpuscular Hemoglobin 24.4 pg (25-34); Mean Corpuscular Hgb Conc 30.3 g/dL (32-36); Mean Corpuscular Volume 80.4 fL (80-100); Mean Platelet Volume 8.8 fL (7.4-10.4); Monocytes # (auto) 0.61 K/uL (0.11-0.59); Monocytes % (auto) 10.8 %; Neutrophils # (auto) 3.91 K/uL (1.4-6.5); Neutrophils % (auto) 68.9 %; Platelet Count 353 K/uL (130-400); RDW Coefficient of Variation 16.4 % (11.5-14.5); RDW Standard Deviation 47.8 fL (36.4-46.3); Red Blood Count 3.98 M/uL (4.7-6.1); White Blood Count 5.67 K/uL (4.8-10.8)
[2020-09-12 08:44] LABS: Albumin Level 2.8 gm/dl (3.4-5.0); BUN Creatinine Ratio 22.4 (10-20); Calcium 8.8 mg/dl (8.5-10.1); Creatinine Clr Calc Pharmacy 163.2 ml/min; Est GFR (African American) 125.6 ml/min; Est GFR (Non-African American) 108.4 ml/min; Potassium 4.1 mmol/L (3.5-5.1)
[2020-09-12 08:46] LABS: Albumin Globulin Ratio 0.6 (0.9-2); Bilirubin,Total 0.4 mg/dl (0.2-1); Globulin 4.3 gm/dl (2.5-4.0); Total Protein 7.1 gm/dl (6.4-8.2)
[2020-09-12 09:08] LABS: Estimated Average Glucose 128 mg/dl; Hemoglobin A1C 6.1 % (4.5-5.6)
[2020-09-12] MEDS: FUROSEMIDE 40 MG in SYRINGE 0 ML IV SCH ×2 (12:19→20:33)
--- NOTE | 2020-09-12 14:35 | Hospitalist Progress Note ---
Date of Service September 12, 2020 Assessment & Plan (1) Swelling of both lower extremities: Plan: This is a 55-year-old male who has significant past medical history of cervical ependymoma status post surgical resection x2 and XRT with residual paraparesis and spastic hemiplegia, wheelchair-bound, iron deficiency anemia, GERD, obesity who presents ED secondary to fullness in left upper quadrant and feeling of inability to take a deep breath prior to arrival and worsening edema Recent echocardiogram as outpatient which revealed EF 60 to 64%, mild TR, mild pulmonary hypertension on 08/17/2020, no evidence of heart failure Lasix IV 40mg given on admission Continue Lasix IV 40mg BID Might consider Nephrology consult if no improvement to help with diuresis management Monitor BMP while on IV lasix Monitor urine output (2) Cellulitis of right leg: (3) Abnormal CT scan: Plan: CT Chest: Moderate right chest wall infiltration and fluid involving the musculature of the right lower chest wall and right upper abdomen. CT A/P: 1. Right hip joint effusion with moderate inflammation involving the adjacent right hip musculature and overlying soft tissues. Multiple rim- enhancing intramuscular fluid collections, as described above. lab on admission with Ck WNL, pro-Jorge WNL, WBC 4.70, ESR 94, CRP 3.42 Will continue IV Rocephin and Daptomycin for now for possible cellulitis and any infectious etiology in CT finding orthopedic was consulted for the abnormalities in CT Continue monitor closely (4) Ependymoma: (5) Chronic paraplegia: (6) Spastic hemiparesis: Plan: Status post surgical resection and XRT in the Currently following [place] neurosurgery, to reestablish with new provider in September Continue tizanidine at bedtime (7) Anemia: Plan: Iron deficiency anemia Hgb 9.7 stable No signs or symptoms of bleeding Continue monitor BMP (8) GERD (gastroesophageal reflux disease): Plan: continue PPI (9) DVT prophylaxis: Plan: lovenox sq q12 FULL CODE Admission and Anticipated Discharge Date Admission Date: September 11, 2020 Subjective Pt was seen and examined for follow up of Lower extremity edema Lying in bed with no distress Pt said that last night he was incontinence after the lasix He said that the condom cath was not able to stay in his penis He agreed to place a webb cath while on the IV lasix He continues to have alot of swelling in his lower extremities Denies any chest pain, palpitation, dizziness and SOB Physical Exam Physical Exam: General- No acute distress Head- atraumatic Eyes- PERRL, EOMI, ENT- oropharynx clear Neck- supple, no JVD Lungs- clear to auscultation Heart- regular rhythm; no murmur Abdomen- normal bowel sounds, soft, nontender Extremities- no calf tenderness, +edema Neuro- alert, oriented x 3; PERRL, EOMI; Lower extremities weakness due to paraplegia Skin- warm & dry Results & Data Results & Data ([facility]) Vital Signs (Past 12 Hours) Vital Signs Temp Pulse Pulse Resp BP Pulse Ox 09/12/20 12:02 36.9 C 86 18 116/66 95 09/12/20 08:12 37 C 85 18 99/48 L 97 09/12/20 06:06 88 09/12/20 03:21 36.9 C 89 18 117/56 L 96
[2020-09-12] MEDS: DAPTOmycin 375 MG in SYRINGE 0 ML IV SCH (18:22)
--- NOTE | 2020-09-12 20:11 | Orthopedic Consultation ---
Date of Consultation September 12, 2020 Assessment & Plan (1) Swelling of both lower extremities: See dictation plan (2) Spastic hemiparesis: Complex patient condition with some progressive paraplegia history of cervical spine tumors now with asymptomatic complex right hip effusion. Patient has feeling to touch around the hip and one would think he may have some feeling in hip and that would cause pain with rotation of the hip if he had an infection . Patient possibly may not be able to feel any pain related to the hip effusion. I discussed the patient that an MRI is indicated. He says that he has too much movement that makes MRIs have poor results and needs to be completely sedated. He [facility] and they were not able to sedate him enough to go through with it with typical protocol here apparently and had better anesthesia at [place] with better complete study being performed at that time. I would recommend transferring patient to the [place] where he can have an appropriate MRI obtained and they have interventional radiology available to be able to get fluid samples from the fluid collection for further analysis. If patient needed surgery here at [facility] he would not be cleared for surgery by anesthesia anyway due to his cervical spine tumors and progressive paraplegia. Patient needs to be at a tertiary care center. Patient agreeable to transfer. History of Present Illness Reason for Consultation: Hip effusion Attending Physician: Leonardo Tellez MD History of Present Illness 55-year-old male with complex history of spinal cord tumor lower cervical spine upper thoracic spine had surgery in the past has had paraplegia chronically. He relates to me that he was having some abdominal swelling that they have been following with ultrasound. He is losing function in his left leg where he normally could use it some he can use his left leg any longer. He has a consultation scheduled at neurosurgery in [place]. This is scheduled for about a month from now. He denies any pain or problems with his right hip. He says he does have feeling of his belly and thigh area to the touch on his right leg area but he has no pain at all in his hip thigh or right side of his body. Does not feel sick. Said he has been having some fluctuating white blood cell counts presently normal. Had a recent CAT scan demonstrating some type of complex fluid collection in the hip and surrounding musculature etiology unclear. He did note to me that he is having some increased swelling in both of his legs but his right leg is always been more swollen than his left. Allergies Allergy/AdvReac Type Severity Reaction Status Date / Time amantadine Allergy Severe CHEST Verified 09/11/20 11:51 PAIN, ANXIETY vancomycin Allergy Severe Rash Verified 09/11/20 11:51 Home Medications Medication Instructions Recorded Confirmed Type ascorbic acid (vitamin C) 1,000 mg 1 g PO QAM 07/09/18 09/11/20 History tablet (Vitamin C) furosemide 20 mg tablet 40 mg PO DAILY PRN 07/09/18 09/11/20 History magnesium oxide 400 mg PO 3XWK 07/09/18 09/11/20 History pyridoxine (vitamin B6) 100 mg 100 mg PO QAM 07/09/18 09/11/20 History tablet tizanidine 4 mg tablet 4 mg PO HS 07/09/18 09/11/20 History omeprazole 40 mg capsule,delayed 40 mg PO QPM 08/18/18 09/11/20 History release tamsulosin 0.4 mg capsule 0.4 mg PO HS 08/18/18 09/11/20 History acetaminophen 325 mg capsule 650 mg PO Q6H PRN 09/18/18 09/11/20 History (Tylenol) diphenhydramine 25 2 tab PO HS PRN 09/11/20 09/11/20 History mg-acetaminophen 500 mg tablet (Tylenol PM Extra Strength) Patient History Medical History Anemia iron deficiency Chronic neck pain Ependymoma GERD (gastroesophageal reflux disease) 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 History of gastric ulcer Left arm numbness chronic s/p left arm surgery Spastic hemiparesis 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 (no further details)- paralyzed from the chest down initially which significantly improved with (able to walk with crunches) with therapy, increased LE weakness 2007 and now patient wheelchair bound felt 2/2 nerve damage Surgical History H/O bursectomy left elbow H/O cervical spine surgery 1990 (benign cystectomy) + scar tissue removal H/O eye surgery foreign body (metal) removal from left eye History of esophagogastroduodenoscopy (EGD) EGD: 07/16/18: MAC sedation at [facility] Family History Father Hypertension Other No family history of adverse response to anesthesia Social History Smoking Status: Never smoker Second Hand Exposure: No; Do You Dip or Chew Tobacco: No; Tobacco Cessation Education Requested by Patient: No Hx Alcohol Use: No Hx Substance Use: No Preferred Language: Chinese Communication Ability: Effective Trader Required: No Beliefs That Will Affect Care: None Current Living Situation: Spouse Current Living Situation Comment: Lives with and daughter and 1 granddaughter Other Information That Helps Us Care for You: No Feels Safe at Home: Yes Safety Concerns: Feels Safe At This Time Assistive Devices: Wheelchair Review of Systems Eyes: Normal Respiratory: Normal Gastrointestinal: Abdominal swelling Musculoskeletal: Lower leg edema Physical Exam Physical Exam: Upper extremity strength demonstrates that he has normal abduction strength normal flexion extension strength of elbow and has weak extrinsics with positive Froment's sign bilaterally with 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 Patient has some reflex twitching of his lower extremities but has no active use of either lower extremity. He has significant pitting edema right greater than left lower extremity. I do not see any erythema does not have any particular increased warmth in the extremities he has good capillary refill both lower extremities I cannot palpate pulses due to the edema. Patient has normal range of motion of his hip with no pain at all with rotation of his hip. He has no tenderness about the hip. There is no drainage coming from the hip. Results & Data ([facility]) Vital Signs (Past 12 Hours) Vital Signs Temp Pulse Resp BP Pulse Ox 09/12/20 19:13 37 C 85 18 111/57 L 95 09/12/20 15:09 36.6 C 77 18 106/63 94 09/12/20 12:02 36.9 C 86 18 116/66 95 09/12/20 08:12 37 C 85 18 99/48 L 97 Laboratory Results Sed rate was elevated at 94 white count normal at 5.67 hemoglobin 9.7 is afebr ile Diagnostic Findings Atypical fluid collection on CAT scan around hip area right side
[2020-09-12] MEDS: PANTOprazole 40 MG TAB PO SCH (20:34)
[2020-09-12] MEDS: TAMSULOSIN HCL 0.4 MG CAP PO SCH (20:34)
[2020-09-12] MEDS: tiZANidine HCL 4 MG TABLET PO SCH (21:35)
[2020-09-13 05:38] LABS: Hematocrit (blood only) 30.2 % (42-52); Hemoglobin 9.1 g/dL (14.0-18.0); Mean Corpuscular Hemoglobin 24.3 pg (25-34); Mean Corpuscular Hgb Conc 30.1 g/dL (32-36); Mean Corpuscular Volume 80.7 fL (80-100); Mean Platelet Volume 8.3 fL (7.4-10.4); Platelet Count 319 K/uL (130-400); RDW Coefficient of Variation 16.5 % (11.5-14.5); RDW Standard Deviation 49.2 fL (36.4-46.3); Red Blood Count 3.74 M/uL (4.7-6.1)
[2020-09-13 05:55] LABS: BUN Creatinine Ratio 34.8 (10-20); Calcium 8.6 mg/dl (8.5-10.1); Creatinine Clr Calc Pharmacy 194.1 ml/min; Est GFR (African American) 134.9 ml/min; Est GFR (Non-African American) 116.4 ml/min; Potassium 3.9 mmol/L (3.5-5.1)
[2020-09-13] MEDS: FUROSEMIDE 40 MG in SYRINGE 0 ML IV SCH ×2 (07:40→20:29)
[2020-09-13] MEDS: PYRIDOXINE HCL 50 MG TAB PO SCH (07:40)
[2020-09-13] MEDS: POTASSIUM CHLORIDE 10 MEQ TABCR PO SCH (07:40)
[2020-09-13] MEDS: ASCORBIC ACID 500 MG TAB PO SCH (07:40)
[2020-09-13] MEDS: ENOXAPARIN INJ 40 MG/0.4 ML SYR SQ SCH ×2 (09:27→21:33)
--- NOTE | 2020-09-13 09:38 | Hospitalist Progress Note ---
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 with residual paraparesis and spastic hemiplegia, wheelchair-bound, iron deficiency anemia, GERD, obesity who presents ED secondary to fullness in left upper quadrant and feeling of inability to take a deep breath prior to arrival and worsening edema Recent echocardiogram as outpatient which revealed EF 60 to 64%, mild TR, mild pulmonary hypertension on 08/17/2020, no evidence of heart failure Lasix IV 40mg given on admission Continue Lasix IV 40mg BID Pt only had a negative 600's ml balance Might consider Nephrology consult if no improvement to help with diuresis management Monitor BMP while on IV lasix Monitor urine output (2) Cellulitis of right leg: (3) Abnormal CT scan: Plan: CT Chest: Moderate right chest wall infiltration and fluid involving the musculature of the right lower chest wall and right upper abdomen. CT A/P: 1. Right hip joint effusion with moderate inflammation involving the adjacent right hip musculature and overlying soft tissues. Multiple rim- enhancing intramuscular fluid collections, as described above. lab on admission with Ck WNL, pro-Jorge WNL, WBC 4.70, ESR 94, CRP 3.42 Will continue IV Rocephin and Daptomycin for now for possible cellulitis and any infectious etiology in CT finding orthopedic was consulted for the abnormalities in CT Case discussed with Ortho dr. Acosta that recommended to transfer to [place] to get an MRI and evaluate by IR for the ring enhancing lesion Pt said that last time they had to sedate him to get the MRI done because he was moving alot I called [place] [facility]. Discussed case with hospitalist Dr. Vigil. Dr Vigil said that pt last few MRI was done at [facility] and last MRI pt had in [place] was more than 5 yrs ago He said that they are low in bed. He asks to get the MRI done at our facility since pt had 4 MRIs at our facility in 2019. He said that after the MRI if we need IR intervention base on the result to call back for the transfer I called Anesthesiologist and they are trying to get the MRI arrange Anesthesiologist said that they can get it done tomorrow morning at our facility Will make him NPO after midnight. Continue monitor closely (4) Ependymoma: (5) Chronic paraplegia: (6) Spastic hemiparesis: Plan: Status post surgical resection and XRT in the Currently following [place] [facility], to reestablish with new provider in September Continue tizanidine at bedtime (7) Anemia: Plan: Iron deficiency anemia Hgb 9.1 stable No signs or symptoms of bleeding Continue monitor BMP (8) GERD (gastroesophageal reflux disease): Plan: continue PPI (9) DVT prophylaxis: Plan: Lovenox sq q12 FULL CODE Admission and Anticipated Discharge Date Admission Date: September 11, 2020 Subjective Pt was seen and examined for follow up of Lower extremity edema Lying in bed with no acute distress Balbuena cath was able to place yesterday He has been having good urine output with the IV lasix Ortho saw pt yesterday and recommended to transfer to [place] to get an MRI and evaluate by IR for the ring enhancing lesion Pt said that last time they had to sedate him to get the MRI done because he was moving alot I called [place] [facility]. Discussed case with hospitalist Dr. Vigil. Dr Vigil said that pt last few MRI was done at [facility] and last MRI pt had in [place] was more than 5 yrs ago He said that they are low in bed. He asks to get the MRI done at our facility since pt had 4 MRIs at our facility in 2019. He said that after the MRI if we need IR intervention base on the result to call back for the transfer I called Anesthesiologist and they are trying to get the MRI arrange Denies any chest pain, palpitation, dizziness and SOB Physical Exam Physical Exam: General- No acute distress Head- atraumatic Eyes- PERRL, EOMI, ENT- oropharynx clear Neck- supple, no JVD Lungs- clear to auscultation Heart- regular rhythm; no murmur Abdomen- normal bowel sounds, soft, nontender Extremities- no calf tenderness, +edema Neuro- alert, oriented x 3; PERRL, EOMI; Lower extremities weakness due to paraplegia Skin- warm & dry Results & Data Results & Data ([facility]) Vital Signs (Past 12 Hours) Vital Signs Temp Pulse Pulse Resp BP Pulse Ox 09/13/20 07:52 37.1 C 86 16 104/61 96 09/13/20 03:03 36.6 C 81 18 150/60 H 98 09/12/20 23:59 84 09/12/20 23:09 37.2 C 90 19 111/57 L 96
--- NOTE | 2020-09-13 10:57 | Anesthesiology Consultation ---
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 History Height/Weight Height: 5 ft 11 in Weight: 120.4 kg Allergies Allergy/AdvReac Type Severity Reaction Status Date / Time amantadine Allergy Severe CHEST Verified 09/11/20 11:51 PAIN, ANXIETY vancomycin Allergy Severe Rash Verified 09/11/20 11:51 Medications Home Medications Medication Instructions Recorded Confirmed Last Taken ascorbic acid (vitamin C) 1,000 mg 1 g PO QAM 07/09/18 09/11/20 09/10/20 tablet (Vitamin C) furosemide 20 mg tablet 40 mg PO DAILY PRN 07/09/18 09/11/20 09/10/20 magnesium oxide 400 mg PO 3XWK 07/09/18 09/11/20 09/09/20 pyridoxine (vitamin B6) 100 mg 100 mg PO QAM 07/09/18 09/11/20 09/10/20 tablet tizanidine 4 mg tablet 4 mg PO HS 07/09/18 09/11/20 09/10/20 omeprazole 40 mg capsule,delayed 40 mg PO QPM 08/18/18 09/11/20 09/10/20 release tamsulosin 0.4 mg capsule 0.4 mg PO HS 08/18/18 09/11/20 09/11/18 acetaminophen 325 mg capsule 650 mg PO Q6H PRN 09/18/18 09/11/20 09/17/18 (Tylenol) diphenhydramine 25 2 tab PO HS PRN 09/11/20 09/11/20 09/10/20 mg-acetaminophen 500 mg tablet (Tylenol PM Extra Strength) Active Medications Generic Name Dose Route Start Last Admin Trade Name Freq PRN Reason Stop Dose Admin Ascorbic Acid 1,000 mg 09/12/20 09:00 09/13/20 07:40 Ascorbic Acid 500 Mg Tab PO 10/12/20 08:59 1,000 mg QAM RENY Administration Enoxaparin Sodium 40 mg 09/11/20 22:00 09/13/20 09:27 Enoxaparin Inj 40 Mg/0.4 Ml Syr SQ 10/11/20 21:59 40 mg Q12H RENY Administration Furosemide 40 mg 09/11/20 18:30 09/11/20 20:18 Furosemide 40 Mg Tab PO 10/11/20 18:29 Not Given DAILY REYN Ceftriaxone Sodium 2,000 mg/ 70 mls @ 100 mls/hr 09/11/20 21:00 09/12/20 23:29 Dextrose IV 09/18/20 20:59 Infused Q24H RENY Infusion Protocol Furosemide 40 mg/ Syringe 4 mls @ 4 mls/min 09/12/20 11:45 09/13/20 07:40 IV 10/12/20 11:44 4 mls/min BID RENY Administration Magnesium Oxide 400 mg 09/12/20 09:00 09/12/20 08:11 Magnesium Oxide 400 Mg Tab PO 10/12/20 08:59 400 mg [id number] RENY Administration Pantoprazole Sodium 40 mg 09/11/20 21:00 09/12/20 20:34 Pantoprazole 40 Mg Tab PO 10/11/20 20:59 40 mg QPM RENY Administration Protocol Potassium Chloride 10 meq 09/12/20 09:00 09/13/20 07:40 Potassium Chloride 10 Meq Tabcr PO 10/12/20 08:59 10 meq DAILY RNEY Administration Pyridoxine HCl 100 mg 09/12/20 09:00 09/13/20 07:40 Pyridoxine Hcl 50 Mg Tab PO 10/12/20 08:59 100 mg QAM RENY Administration Tamsulosin HCl 0.4 mg 09/11/20 21:00 09/12/20 20:34 Tamsulosin Hcl 0.4 Mg Cap PO 10/11/20 20:59 0.4 mg HS RENY Administration Tizanidine HCl 4 mg 09/11/20 21:00 09/12/20 21:35 Tizanidine Hcl 4 Mg Tablet PO 10/11/20 20:59 4 mg HS RENY Administration Past Medical History Medical History Anemia iron deficiency Chronic neck pain Ependymoma GERD (gastroesophageal reflux disease) 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 History of gastric ulcer Left arm numbness chronic s/p left arm surgery Spastic hemiparesis 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 (no further details)- paralyzed from the chest down initially which significantly improved with (able to walk with crunches) with therapy, increased LE weakness 2007 and now patient wheelchair bound felt 2/2 nerve damage Past Family History Family History Father Hypertension Other No family history of adverse response to anesthesia Past Surgical History Surgical History H/O bursectomy left elbow H/O cervical spine surgery 1990 (benign cystectomy) + scar tissue removal H/O eye surgery foreign body (metal) removal from left eye History of esophagogastroduodenoscopy (EGD) EGD: 07/16/18: MAC sedation at [facility] Social History Smoking Status: Never smoker Do You Dip or Chew Tobacco: No Hx Alcohol Use: No Alcohol type: hard liquor alcohol intake frequency: holidays/special occasions only Hx Substance Use: No substance use type: does not use Physical Exam Vital Signs Last Vital Signs Temp 98.8 F 09/13/20 07:52 Pulse 86 09/13/20 07:52 Resp 16 09/13/20 07:52 BP 104/61 09/13/20 07:52 Pulse Ox 96 09/13/20 07:52 Testing Laboratory Results 09/13/20 05:28 09/13/20 05:28 PT 10.4 Seconds (9.0-12.0) 09/11/20 11:30 INR 1.0 (0.9-1.1) 09/11/20 11:30 APTT 29.6 Seconds (21.0-31.0) 09/11/20 11:30 Hemoglobin A1c 6.1 % (4.5-5.6) H 09/12/20 07:43 09/11/20 15:43 Aerobic Blood Culture - Preliminary Blood No growth in Aerobic bottle after 24 hours. Anaerobic Blood Culture - Preliminary No growth in Anaerobic bottle after 24 hours. 09/11/20 15:36 Aerobic Blood Culture - Preliminary Blood No growth in Aerobic bottle after 24 hours. Anaerobic Blood Culture - Preliminary No growth in Anaerobic bottle after 24 hours. Laboratory Tests 09/11/20 15:45 SARS-CoV-2 (PCR) NEGATIVE Electrocardiogram Date: 09/11/20 Poor data quality, interpretation may be adversely affected Normal sinus rhythm, rate 82 bpm Minimal voltage criteria for LVH, may be normal variant Nonspecific ST abnormality Abnormal ECG No previous ECGs available Confirmed by Louie Cruz ([id number]) on 09/11/2020 1:33:04 PM Chest X-Ray Date: 09/11/20 FINDINGS: Patient is rotated. There is mild right basilar opacity. Lungs are clear. There is no pneumothorax or pleural effusion. Cardiac size is normal. Mediastinal contours are normal. There is no evidence for pulmonary edema. IMPRESSION: Mild right basilar opacity. Atelectasis is favored although an infectious process could appear similar. Cervical Spine Date: 09/18/18 IMPRESSION: 1. Large heterogeneous and avidly enhancing intradural intramedullary mass extends from C6-T1 compatible with patient's reportedly known ependymoma. Additional signal abnormality is identified within the spinal cord extending from the cervicomedullary junction through the upper thoracic levels. This may be secondary to nonenhancing tumor and/or associated syrinx. 2. Increased T1 signal of the spine extending from C1-T3 is likely on a posttreatment basis. 3. Degenerative changes as above. 4. Laminectomy changes extend from C4 through the thoracic spine. Other Testing Chest CTA 09/11/20 IMPRESSION: 1. No pulmonary emboli identified. 2. No consolidation to suggest pneumonia. 3. Moderate right chest wall infiltration and fluid involving the musculature of the right lower chest wall and right upper abdomen. The findings are nonspecific but favor an infectious or inflammatory process in the absence of recent trauma. Findings discussed with Dr. Hawk at time of dictation. 4. Bilateral upper lobe paramediastinal opacity which favors post radiation change. Follow up chest CT in 6 months to ensure stability is recommended. 5. Left glenohumeral joint effusion. This is likely degenerative.
[2020-09-13] MEDS: DAPTOmycin 575 MG in SYRINGE 0 ML IV SCH (18:28)
[2020-09-13] MEDS: PANTOprazole 40 MG TAB PO SCH (20:30)
[2020-09-13] MEDS: TAMSULOSIN HCL 0.4 MG CAP PO SCH (20:30)
[2020-09-13] MEDS: cefTRIAXone SODIUM 2,000 MG in DEXTROSE 5% 50 ML IV SCH (20:53)
[2020-09-13] MEDS: tiZANidine HCL 4 MG TABLET PO SCH (21:33)
[2020-09-14] MEDS: ACETAMINOPHEN 325 MG TAB PO PRN ×2 (06:57→22:14)
[2020-09-14] MEDS: POTASSIUM CHLORIDE 10 MEQ TABCR PO SCH (07:40)
[2020-09-14] MEDS: FUROSEMIDE 40 MG in SYRINGE 0 ML IV SCH ×2 (07:40→22:13)
[2020-09-14] MEDS: PYRIDOXINE HCL 50 MG TAB PO SCH (07:40)
[2020-09-14] MEDS: ASCORBIC ACID 500 MG TAB PO SCH (07:40)
[2020-09-14] MEDS: MAGNESIUM OXIDE 400 MG TAB PO SCH (07:40)
[2020-09-14] MEDS: ENOXAPARIN INJ 40 MG/0.4 ML SYR SQ SCH ×2 (09:42→22:14)
[2020-09-14] MEDS ORDERED: MIDAZOLAM HCL 1 MG/ML 2ML VIAL ONE ×2 (11:23→11:24)
[2020-09-14] MEDS ORDERED: fentaNYL citrate 100 MCG/2 ML VIAL ONE ×2 (11:24→11:54)
[2020-09-14] MEDS ORDERED: PROPOFOL IV EMULSION 10 MG/ML 20 ML VIAL IV ONE (11:25)
[2020-09-14] MEDS ORDERED: GADOXETATE DISODIUM IV ONE (13:50)
--- NOTE | 2020-09-14 14:48 | Magnetic Resonance Report ---
MR hip RT wo/w con CLINICAL HISTORY: Inflammatory right hip process. Abnormal prior CT scan. COMPARISON STUDY: CT scan dated 09/11/2020 FINDINGS: Images were acquired in the axial, sagittal, and coronal planes, before and after the administration of 10 cc of intravenous Eovist There is fluid/edema within the right anterior abdominal wall subcutaneous fat. There is a small right hip joint effusion and trace left hip joint effusion. There are no areas of marrow edema to indicate occult fracture or osteomyelitis. There is minimal subchondral marrow edema within the right hip, likely degenerative basis. There are multifocal areas of increased T2 signal within the muscles. This includes the erector spina e muscles, Clifton gluteal muscles, the obturator muscles, as well as the right semitendinosus muscle. The findings are more pronounced on the right. Post gadolinium images reveal bilateral postcontrast m uscular enhancement. There is a large area of diminished enhancement within the right gluteal muscle which is larger than the associated T2 fluid collection. The findings are consistent with an area of myonecrosis. IMPRESSION: 1. 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 2. Small right hip joint effusion. No evidence of osteomyelitis. ACT 112: Negative or not required by law. Electronically signed by: David Del Cid M.D. 09/14/2020 2:47 PM
--- NOTE | 2020-09-14 14:59 | Anesthesiology Progress Note ---
Date of Service September 14, 2020 Anesthesia Post Procedure Vital Signs Vital Signs: Temp Pulse Pulse Pulse Resp BP Pulse Ox 09/14/20 14:45 85 16 108/62 96 09/14/20 14:36 36.0 C L 82 18 123/63 95 09/14/20 11:25 36.8 C 84 16 116/59 L 94 09/14/20 07:21 36.7 C 82 16 115/53 L 98 09/14/20 03:35 36.9 C 82 18 106/61 96 09/14/20 02:51 84 09/13/20 23:15 37.0 C 85 18 110/55 L 97 09/13/20 19:30 37.4 C 90 18 94/60 L 95 09/13/20 15:25 37.1 C 16 110/57 L 95 Pain Intensity Bilateral Leg: Pain Intensity: 7 Transfer of Care Handoff Completed per policy Notes Mental Status: alert / awake / arousable Patient Amnestic to Procedure: Yes Nausea / Vomiting: adequately controlled Pain: adequately controlled Airway Patency, RR, SpO2: stable & adequate BP & HR: stable & adequate Hydration State: stable & adequate Anesthetic Complications: no major complications apparent
--- NOTE | 2020-09-14 16:41 | Hospitalist Progress Note ---
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 and spastic hemiplegia, wheelchair-bound, iron deficiency anemia, GERD, obesity who presents ED secondary to fullness in left upper quadrant and feeling of inability to take a deep breath prior to arrival and worsening edema Recent echocardiogram as outpatient which revealed EF 60 to 64%, mild TR, mild pulmonary hypertension on 08/17/2020, no evidence of heart failure Patient does not appear to be volume overloaded, no evidence of decompensated CHF Abdominal pain discomfort has resolved Significant swelling/cellulitis of right leg noted, (2) Cellulitis of right leg: Plan: Right abdominal wall abscess, Noted on MRI of abdomen Patient will need IR guided drainage at tertiary care (3) Abnormal CT scan: Plan: CT Chest: Moderate right chest wall infiltration and fluid involving the musculature of the right lower chest wall and right upper abdomen. CT A/P: 1. Right hip joint effusion with moderate inflammation involving the adjacent right hip musculature and overlying soft tissues. Multiple rim- enhancing intramuscular fluid collections, as described above. lab on admission with Ck WNL, pro-Jorge WNL, WBC 4.70, ESR 94, CRP 3.42 orthopedic was consulted for the abnormalities in CT Case discussed with Ortho dr. Acosta that recommended to transfer to [place] to get an MRI and evaluate by IR for the ring enhancing lesion Pt said that last time they had to sedate him to get the MRI done because he was moving alot Dr. Mahoney called [place] [facility]. Discussed case with hospitalist Dr. Vigil. Dr Vigil said that pt last few MRI was done at [facility] and last MRI pt had in [place] was more than 5 yrs ago Patient had MRI of lower extremity done under anesthesia today . 1. 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 2. Small right hip joint effusion. No evidence of osteomyelitis. For any orthopedics procedure patient will need to be transferred to [place], (4) Ependymoma: Plan: Follows with neurosurgery in [facility] (5) Chronic paraplegia: (6) Spastic hemiparesis: Plan: Status post surgical resection and XRT in the 1990s Currently following [place] neurosurgery, to reestablish with new provider in September Continue tizanidine at bedtime (7) Anemia: Plan: Iron deficiency anemia Hgb 9.1 stable No signs or symptoms of bleeding (8) GERD (gastroesophageal reflux disease): Plan: continue PPI (9) DVT prophylaxis: Plan: Lovenox sq q12 FULL CODE Admission and Anticipated Discharge Date Admission Date: September 13, 2020 Subjective Pt was seen and examined for follow up of Lower extremity edema Sitting up on bed, stable vitals, conversing Patient had lower abdominal pain, which has resolved, no nausea vomiting tolerating diet No complaint of cough no fever or chills Bilateral lower extremity weakness from paraplegia Patient has no sensation of bilateral lower extremity,, no pain or discomfort Review of Systems Review of Systems: All systems reviewed & are unremarkable except as noted in Subjective Physical Exam Constitutional: WD/WN, vitals as above Eyes: PERRL, conjunctivae normal, anicteric sclerae ENMT: external ear and nose normal, oropharynx normal Neck: trachea midline, no thyromegaly Respiratory: normal respiratory effort, lungs clear to auscultation Gastrointestinal (Abdomen): Percussion/Palpation: abdomen soft; abdomen nontender Musculoskeletal: Bilateral lower extremity paraplegic, swelling/erythema noted on right lower extremity extending forearm groin upper thigh to lower leg. Patient denies of any pain or sensation Neurologic: Bilateral paraplegia of lower extremity Psychiatric: A+Ox3, euthymic affect Results & Data Results & Data ([facility]) Vital Signs (Past 12 Hours) Vital Signs Temp Pulse Pulse Resp BP Pulse Ox 09/14/20 16:12 36.9 C 82 16 109/66 96 09/14/20 15:18 36.7 C 86 20 117/67 96 09/14/20 14:55 36.4 C L 81 20 103/55 L 97 09/14/20 14:45 85 16 108/62 96 09/14/20 14:36 36.0 C L 82 18 123/63 95 09/14/20 11:25 36.8 C 84 16 116/59 L 94 09/14/20 07:21 36.7 C 82 16 115/53 L 98
--- NOTE | 2020-09-14 16:47 | Magnetic Resonance Report ---
MR abdomen wo/w con CLINICAL HISTORY: right upper abdominal wall fluid collection TECHNIQUE: Imaging was performed prior to and following IV contrast injection. COMPARISON STUDY: No previous studies for comparison. Correlation is made with CT of abdomen and pel vis performed on September 11, 2020 FINDINGS: There is 11.3 x 4.2 x 8.2 cm collection within right anterior abdominal wall which shows peripheral e nhancement after intravenous contrast administration concerning for abscess. Liver is normal in size and signal characteristics. No focal liver lesions or intrahepatic biliary di latation seen. Gallbladder is fluid-filled with intraluminal filling defect representing gallstone. No pericholecyst ic inflammatory changes are seen. MRCP: No intrahepatic biliary dilatation is seen. Common bile duct is not dilated measuring 5 mm in c aliber. Pancreas, spleen and bilateral adrenal glands are unremarkable. No evidence of hydronephrosis. Few peripelvic cysts are seen on the left. Visualized loops of bowel are nondilated. Normal appearance of abdominal aorta. IMPRESSION: 1. Recently seen collection within anterior right abdominal wall could represent abscess. Please cor relate above-mentioned findings with laboratory and clinical presentation of inflammatory process. 2. Cholelithiasis. Nondilated common bile duct. No intrahepatic biliary dilatation seen. 3. Few renal cysts on the left. ACT 112: Negative or not required by law. The above report was generated using voice recognition software. It may contain grammatical, syntax o r spelling errors. Electronically signed by: Mariel Krishnan DO 09/14/2020 4:45 PM
[2020-09-14] MEDS: DAPTOmycin 575 MG in SYRINGE 0 ML IV SCH (18:30)
[2020-09-14] MEDS: PANTOprazole 40 MG TAB PO SCH (22:13)
[2020-09-14] MEDS: tiZANidine HCL 4 MG TABLET PO SCH (22:14)
[2020-09-14] MEDS: TAMSULOSIN HCL 0.4 MG CAP PO SCH (22:14)
[2020-09-14] MEDS: cefTRIAXone SODIUM 2,000 MG in DEXTROSE 5% 50 ML IV SCH (22:17)
[2020-09-15] MEDS ORDERED: tiZANidine HCL 4 MG TABLET PO STA (01:45)
[2020-09-15] MEDS: ACETAMINOPHEN 325 MG TAB PO PRN ×2 (02:27→21:36)
[2020-09-15 08:06] LABS: Est GFR (African American) 134.9 ml/min; Est GFR (Non-African American) 116.4 ml/min
[2020-09-15] MEDS: ASCORBIC ACID 500 MG TAB PO SCH (08:54)
[2020-09-15] MEDS: POTASSIUM CHLORIDE 10 MEQ TABCR PO SCH (08:54)
[2020-09-15] MEDS: FUROSEMIDE 40 MG in SYRINGE 0 ML IV SCH ×2 (08:54→20:00)
[2020-09-15] MEDS: PYRIDOXINE HCL 50 MG TAB PO SCH (08:55)
[2020-09-15] MEDS: ENOXAPARIN INJ 40 MG/0.4 ML SYR SQ SCH (12:02)
--- NOTE | 2020-09-15 12:11 | Communication Note ---
Date of Service: September 15, 2020 MRI of abdomen: There is 11.3 x 4.2 x 8.2 cm collection within right anterior abdominal wall which shows peripheral enhancement after intravenous contrast administration concerning for abscess. pt will need transfer to [place] for IR guided drainage of abscess called [facility] in [place] transfer center , waiting for accepting physician Lana Romero MD
[2020-09-15] MEDS ORDERED: bisacodyL 5 MG TABEC PO ONE (12:24)
[2020-09-15 13:07] LABS: Hematocrit (blood only) 33.3 % (42-52); Hemoglobin 10.1 g/dL (14.0-18.0); Mean Corpuscular Hemoglobin 24.6 pg (25-34); Mean Corpuscular Hgb Conc 30.3 g/dL (32-36); Mean Corpuscular Volume 81.2 fL (80-100); Platelet Count 339 K/uL (130-400); RDW Coefficient of Variation 16.4 % (11.5-14.5); White Blood Count 6.12 K/uL (4.8-10.8)
[2020-09-15 13:21] LABS: BUN Creatinine Ratio 45.5 (10-20); Calcium 8.8 mg/dl (8.5-10.1); Creatinine Clr Calc Pharmacy 190.8 ml/min; Est GFR (Non-African American) 115.6 ml/min; Potassium 4.1 mmol/L (3.5-5.1)
--- NOTE | 2020-09-15 14:45 | Hospitalist Progress Note ---
Date of Service September 15, 2020 Assessment & Plan (1) Swelling of both lower extremities: Plan: This is a 55-year-old male who has significant past medical history of cervical ependymoma status post surgical resection x2 and XRT with residual paraparesis and spastic hemiplegia, wheelchair-bound, iron deficiency anemia, GERD, obesity who presents ED secondary to fullness in left upper quadrant and feeling of inability to take a deep breath prior to arrival and worsening edema MRI of the abdomen: There is 11.3 x 4.2 x 8.2 cm collection within right anterior abdominal wall which shows peripheral enhancement after intravenous contrast administration concerning for abscess. Given underlying medical complexity, patient will need to be transferred to tertiary care, discussed the case with [place] As per IR, there is no drainage able abscess present, but patient will definitely need surgical evaluation Patient is accepted to be transferred, accepting physician Dr. Hall Transferred to [facility] for higher level of care (2) Cellulitis of right leg: Plan: . MRI of the hip findings indicative of a bilateral right greater than left mult ifocal myositis with areas of myonecrosis. Small right hip joint effusion. No evidence of osteomyelitis. Is being transferred to [place] for further level of care (3) Abnormal CT scan: (4) Ependymoma: Plan: Status post surgery status post radiation treatment Patient reports of worsening of lower extremity weakness, paresthesia Scheduled to see neurosurgery in [facility] on September 28 Patient is being transferred to [facility] (5) Chronic paraplegia: (6) Spastic hemiparesis: Plan: Status post surgical resection and XRT in the Currently following [place] neurosurgery, appointment scheduled with a new provider on September 28 Continue tizanidine at bedtime (7) Anemia: Plan: Iron deficiency anemia Hgb 9.1 stable No signs or symptoms of bleeding (8) GERD (gastroesophageal reflux disease): Plan: continue PPI (9) DVT prophylaxis: Plan: Lovenox sq q12 FULL CODE Disposition, transfer patient to [facility] today Admission and Anticipated Discharge Date Admission Date: September 13, 2020 Subjective Pt was seen and examined for follow up of Lower extremity edema Sitting up on bed, stable vitals, conversing Denies of any abdominal pain, or discomfort, tolerating diet, Feels his right leg swelling has improved, Patient and his updated at that patient would need to be transferred to [facility], for possible surgical procedure of right anterior abdominal wall abscess, Patient is agreeable to be transferred to [place] No complaint of chest pain or shortness of breath no fever chills, no cough, no diarrhea or loose stool, Review of Systems Review of Systems: All systems reviewed & are unremarkable except as noted in Subjective Physical Exam Constitutional: WD/WN, vitals as above Eyes: PERRL, conjunctivae normal, anicteric sclerae ENMT: external ear and nose normal, oropharynx normal Neck: trachea midline, no thyromegaly Respiratory: normal respiratory effort, lungs clear to auscultation Gastrointestinal (Abdomen): Percussion/Palpation: abdomen soft; abdomen nontender Psychiatric: A+Ox3, euthymic affect Results & Data Results & Data ([facility]) Vital Signs (Past 12 Hours) Vital Signs Temp Pulse Pulse Resp BP Pulse Ox 09/15/20 11:15 36.8 C 88 18 104/52 L 95 09/15/20 07:35 79 09/15/20 06:55 36.7 C 82 18 119/63 96 09/15/20 02:56 36.8 C 76 20 93/52 L 98
[2020-09-15] MEDS: DAPTOmycin 575 MG in SYRINGE 0 ML IV SCH (18:35)
--- NOTE | 2020-09-15 18:37 | Discharge Summary ---
Date of Service September 15, 2020 Admission HPI Per Admitting Provider This is a 55-year-old male who has significant past medical history of cervical ependymoma status post surgical resection x2 and XRT with residual paraparesis and spastic hemiplegia, wheelchair-bound, iron deficiency anemia, GERD, obesity who presents ED secondary to fullness in left upper quadrant and feeling of inability to take a deep breath prior to arrival. Patient's is at bedside who also helps elicit history. He states over the past 6 months he has noticed a gradual increase in abdominal girth and increase in lower extremity swelling. He was seen and evaluated by PCP at the end of May and was placed on daily Lasix. He has been doing this without significant improvement. He also has noticed increase in weight. Due to being wheelchair-bound he is unable to elevate lower extremities and he is unable to wear compression stockings at home due to it being too tight. He was concerned this morning when he developed left upper quadrant fullness and shortness of breath; however, upon arriving to ED he did pass flatulence x5 which alleviated this pressure. He does elicit that he has underlying hepatosplenomegaly for which she is to see gastroenterology in September for. He was concerned this could be related to this. He denies any recent fever, chills, sweats, lightheadedness, dizziness, headache, change in vision, chest pain, shortness of breath, cough, URI symptoms, nausea, vomiting, abdominal pain. He also denies any musculoskeletal pain however he does state from the waist down he has inability to feel pain. feels that his right lower extremity is more red and warm compared to the left. This was just noticed today. In ED patient remained hemodynamically stable and afebrile. Lab work notable for WBC 4.70, H&H 10.2 and 33.5, platelet 408, ESR 94, CRP 3.42, BUN 14, creatinine 0.59, procalcitonin WNL. He underwent CT chest to rule out PE and CT abdomen pelvis secondary to abdominal fullness and distended abdomen. Chest CT revealed Moderate right chest wall infiltration and fluid involving the musculature of the right lower chest wall and right upper abdomen. The findings are nonspecific but favor an infectious or inflammatory process in the absence of recent trauma. CT a/p revealed . Right hip joint effusion with moderate inflammation involving the adjacent right hip musculature and overlying soft tissues. Multiple rim-enhancing intramuscular fluid collections, as described above. Although sterility cannot be assessed by CT, the findings favor an infectious process. An inflammatory process could appear similar. He was started on IV cefepime for underlying cellulitis. 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 History of cervical ependymoma, status post surgery and radiation treatment, chronic paraplegia Discharge Exam Constitutional WD/WN, vitals as above Eyes PERRL, conjunctivae normal, anicteric sclerae ENMT external ear and nose normal, oropharynx normal Neck trachea midline, no thyromegaly Respiratory normal respiratory effort, lungs clear to auscultation Gastrointestinal (Abdomen) Percussion/Palpation: abdomen soft; abdomen nontender Psychiatric A+Ox3, euthymic affect Discharge Data Allergies Allergy/AdvReac Type Severity Reaction Status Date / Time amantadine Allergy Severe CHEST Verified 09/11/20 11:51 PAIN, ANXIETY vancomycin Allergy Severe Rash Verified 09/11/20 11:51 Consultations 09/11/20 17:19 Consult Orthopedic Surgery Routine 09/15/20 13:53 Burn CD for patient Routine Procedures Performed Operation Date: 09/14/20 12:00 <No data on this case meets the specified criteria> Ordered Studies 09/11/20 11:26 CT abd pelvis IV con only Stat 09/11/20 11:27 CT angio chest PE protocol Stat 09/14/20 12:00 MR abdomen wo/w con Routine MR hip RT wo/w con Routine Hospital Course (1) Swelling of both lower extremities: This is a 55-year-old male who has significant past medical history of cervical ependymoma status post surgical resection x2 and XRT with residual paraparesis and spastic hemiplegia, wheelchair-bound, iron deficiency anemia, GERD, obesity who presents ED secondary to fullness in left upper quadrant and feeling of inability to take a deep breath prior to arrival and worsening edema MRI of the abdomen: There is 11.3 x 4.2 x 8.2 cm collection within right anterior abdominal wall which shows peripheral enhancement after intravenous contrast administration concerning for abscess. Given underlying medical complexity, patient will need to be transferred to tertiary care, discussed the case with [place] As per IR, there is no drainage able abscess present, but patient will definitely need surgical evaluation Patient is accepted to be transferred, accepting physician Dr. Hall Transferred to [facility] for higher level of care (2) Cellulitis of right leg: . 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 Small right hip joint effusion. No evidence of osteomyelitis. Is being transferred to [place] for further level of care (3) Abnormal CT scan: (4) Ependymoma: Status post surgery status post radiation treatment Patient reports of worsening of lower extremity weakness, paresthesia Scheduled to see neurosurgery in [facility] on September 28 Patient is being transferred to [facility] (5) Chronic paraplegia: (6) Spastic hemiparesis: Status post surgical resection and XRT in the Currently following [place] neurosurgery, appointment scheduled with a new provider on September 28 Continue tizanidine at bedtime (7) Anemia: Iron deficiency anemia Hgb 9.1 stable No signs or symptoms of bleeding (8) GERD (gastroesophageal reflux disease): continue PPI (9) DVT prophylaxis: Lovenox sq q12 FULL CODE Disposition, transfer patient to [facility] today Total Time Total Time Spent Total Time Spent (In Minutes): 35 minutes Discharge Plan Discharge Items Patient Disposition: Transfer Acute Care Hospital Reason For Visit: RLE CELLULITIS, ABDNORMAL CT CHEST A/P Discharge Diagnosis: Right abdominal wall abscess/cellulitis 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 History of cervical ependymoma, status post surgery and radiation treatment, chronic paraplegia Activity: As commented below Activity Comment: As tolerated Non-emergency contact: Primary Care Provider Call non-emergency contact if: you have any medication questions Follow-up/Referrals: Alexis Yost MD [Primary Care Provider] - Diet: Regular Addtl Attending Provider Instructions: pt is being transferred to [facility] Pending Studies at Discharge: No Stand-Alone Forms: [facility] Sk[facility] Items Patient informed of condition?: Yes DNR: No Discharge Level of Care: Other Communicable Disease: No Discharge Prognosis: Stable Lines: None Urinary Catheter: Yes Medications and DC Order Prescriptions: Continued ascorbic acid (vitamin C) [Vitamin C] 1,000 mg Tablet 1 g PO QAM RF: 0 tizanidine 4 mg Tablet 4 mg PO HS RF: 0 furosemide 20 mg Tablet 40 mg PO DAILY PRN (Reason: Fluid Retention) RF: 0 pyridoxine (vitamin B6) 100 mg Tablet 100 mg PO QAM RF: 0 magnesium oxide 400 mg magnesium Tablet 400 mg PO 3XWK RF: 0 omeprazole 40 mg Capsule,Delayed Release(Dr/Ec) 40 mg PO QPM RF: 0 tamsulosin 0.4 mg Capsule 0.4 mg PO HS RF: 0 acetaminophen [Tylenol] 325 mg Capsule 650 mg PO Q6H PRN (Reason: Pain) RF: 0 diphenhydramine-acetaminophen [Tylenol PM Extra Strength] 25-500 mg Tablet 2 tab PO HS PRN (Reason: Sleep) RF: 0 Discharge Orders: Discharge Order (Routine); Ordered 09/15/20 Ordered By: Lana Barrios/Other Patient Handouts: A1C Admission Data Admit Date/Time: 09/13/20 11:00 Attending Provider: Lana Romero Admit Provider: Leonardo Tellez Primary Care Provider: Alexis Yost Other Providers: Alex Ortiz
[2020-09-15] MEDS: cefTRIAXone SODIUM 2,000 MG in DEXTROSE 5% 50 ML IV SCH (20:00)
[2020-09-15] MEDS: PANTOprazole 40 MG TAB PO SCH (20:00)
[2020-09-15] MEDS: TAMSULOSIN HCL 0.4 MG CAP PO SCH (20:00)
[2020-09-15] MEDS ORDERED: tiZANidine HCL 4 MG TABLET PO SCH (21:00)
== END 2020-09-16 01:45 | disposition short-term general hospital (02) | DRG 603 ==
LOC: 2N 10:42 → ED 10:42 → 2N 17:42 → SUATTDRO 09-13 11:00

== ENCOUNTER 2020-09-23 09:10 | Inpatient (IN) ==
--- NOTE | 2020-09-23 10:31 | Emergency Department Note ---
History of Present Illness General Chief complaint: Abdominal Pain Time Seen by Provider: 09/23/20 10:15 Source: patient and family ( who is at the bedside) Mode of arrival: ambulatory Limitations: no limitations History of Present Illness Maximum Pain Intensity: 5 This patient is a 55-year-old male who has a complex medical history and was just released from [facility] yesterday, comes in with left-sided abdominal pain and cramping he says he feels like he could be constipated. His last vomit was yesterday. He was in [place] for possible abscess. According to his discharge paperwork however he was seen by ID, IR and other specialist there and it was thought to be noninfectious not abscess. He had some nausea. He has had no temperature. Occasional cough. He tested recently negative for Covid. No dysuria hematuria he has had some chronic weakness of his legs which has been getting worse he does have an ependymoma. While he was there he did have neurosurgery see him and he had a MRI done 3 days ago which showed a lot of chronic changes but no cauda equina syndrome and nothing acute. Home Medications Medication Instructions Recorded Confirmed Type ascorbic acid (vitamin C) 1,000 mg 1 g PO QAM 07/09/18 09/23/20 History tablet (Vitamin C) magnesium oxide 400 mg PO 3XWK 07/09/18 09/23/20 History pyridoxine (vitamin B6) 100 mg 100 mg PO QAM 07/09/18 09/23/20 History tablet tizanidine 4 mg tablet 8 mg PO HS 07/09/18 09/23/20 History omeprazole 40 mg capsule,delayed 40 mg PO QPM 08/18/18 09/23/20 History release tamsulosin 0.4 mg capsule 0.4 mg PO HS 08/18/18 09/23/20 History acetaminophen 325 mg capsule 650 mg PO Q6H PRN 09/18/18 09/23/20 History (Tylenol) diphenhydramine 25 2 tab PO HS 09/11/20 09/23/20 History mg-acetaminophen 500 mg tablet (Tylenol PM Extra Strength) furosemide 40 mg tablet 40 mg PO DAILY 09/23/20 09/23/20 History Allergies Allergy/AdvReac Type Severity Reaction Status Date / Time amantadine Allergy Severe CHEST Verified 09/23/20 16:42 PAIN, ANXIETY vancomycin Allergy Severe Rash Verified 09/23/20 16:42 Past Med/Surg History Medical History Anemia iron deficiency Chronic neck pain Ependymoma GERD (gastroesophageal reflux disease) 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 History of gastric ulcer Left arm numbness chronic s/p left arm surgery Spastic hemiparesis 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 (no further details)- paralyzed from the chest down initially which significantly improved with (able to walk with crunches) with therapy, increased LE weakness 2007 and now patient wheelchair bound felt 2/2 nerve damage Surgical History H/O bursectomy left elbow H/O cervical spine surgery 1990 (benign cystectomy) + scar tissue removal H/O eye surgery foreign body (metal) removal from left eye History of esophagogastroduodenoscopy (EGD) EGD: 07/16/18: MAC sedation at [facility] Family History Father Hypertension Other No family history of adverse response to anesthesia Social History Smoking Status: Never smoker Second Hand Exposure: No; Hx Alcohol Use: No Hx Substance Use: No Preferred Language: Finnish Communication Ability: Effective Sm[employer] Required: No Beliefs That Will Affect Care: None Current Living Situation: Spouse Current Living Situation Comment: Lives with and daughter and 1 granddaughter Feels Safe at Home: Yes Assistive Devices: Wheelchair Review of Systems A total of 10 systems reviewed and were otherwise negative Physical Exam Vital Signs Vital Signs - 24 hr 09/23/20 09:22 09/23/20 10:56 09/23/20 10:57 Temperature 36.8 C Temperature Source Oral Pulse Rate 100 H Pulse Rate [Apical] Pulse Rate from SpO2 Sensor Respiratory Rate 18 Blood Pressure 96/71 L 114/72 Blood Pressure [Right Arm] Blood Pressure Mean 79 86 Blood Pressure Mean [Right Arm] Pulse Oximetry 99 99 Oxygen Delivery Method Room Air Sepsis Recent Fever Within 48 Hours No Sepsis New/Unexplained Change in Mental Status No Sepsis Action Taken by Nursing No Action Required 09/23/20 11:11 09/23/20 14:55 09/23/20 15:08 Temperature Temperature Source Pulse Rate 90 Pulse Rate [Apical] 95 H 80 Pulse Rate from SpO2 Sensor Respiratory Rate 18 18 18 Blood Pressure 131/76 Blood Pressure [Right Arm] 114/72 114/70 Blood Pressure Mean 94 Blood Pressure Mean [Right Arm] 86 84 Pulse Oximetry 98 99 99 Oxygen Delivery Method Room Air Sepsis Recent Fever Within 48 Hours Sepsis New/Unexplained Change in Mental Status Sepsis Action Taken by Nursing 09/23/20 15:09 Temperature Temperature Source Pulse Rate 90 Pulse Rate [Apical] Pulse Rate from SpO2 Sensor 90 Respiratory Rate 21 Blood Pressure 131/76 Blood Pressure [Right Arm] Blood Pressure Mean 94 Blood Pressure Mean [Right Arm] Pulse Oximetry 99 Oxygen Delivery Method Sepsis Recent Fever Within 48 Hours Sepsis New/Unexplained Change in Mental Status Sepsis Action Taken by Nursing Course Administered Medications Discontinued Medications Acetaminophen (Acetaminophen 1000 Mg/100 Ml Iv) 1,000 mg IV ONE ONE Stop: 09/23/20 15:23 Last Admin: 09/23/20 15:39 Dose: 1,000 mg Documented by: [id number] Cyclobenzaprine HCl (Cyclobenzaprine Hcl 10 Mg Tab) 10 mg PO NOW STA Stop: 09/23/20 15:21 Last Admin: 09/23/20 15:39 Dose: 10 mg Documented by: [id number] Ioversol (Optiray 320 100ml) 94 ml IV ONCE ONE Stop: 09/23/20 11:29 Last Admin: 09/23/20 11:28 Dose: 94 ml Documented by: [id number] Ondansetron HCl (Ondansetron Inj 2 Mg/Ml 2 Ml Vial) 4 mg IV NOW STA Stop: 09/23/20 15:21 Last Admin: 09/23/20 15:39 Dose: 4 mg Documented by: [id number] Medical Decision Making Differential Diagnosis Bowel obstruction, intra-abdominal abscess, diverticulitis, constipation, cauda equina syndrome, UTI, kidney stone, GI illness Medical Records Attestation: I reviewed the patient's medical records. Home Medications Current Medication List: was personally reviewed by me Laboratory Data Attestation: I reviewed the patient's lab results. Result diagrams: 09/23/20 10:10 09/23/20 10:10 Lab Results 09/23/20 09/23/20 09/23/20 Range/Units 10:10 10:10 10:54 WBC 9.36 (4.8-10.8) K/uL RBC 4.42 L (4.7-6.1) M/uL Hgb 11.0 L (14.0-18.0) g/dL Hct 35.5 L (42-52) % MCV 80.3 (80-100) fL MCH 24.9 L (25-34) pg MCHC 31.0 L (32-36) g/dL RDW Std Deviation 48.5 H (36.4-46.3) fL RDW Coeff of Brendon 16.4 H (11.5-14.5) % Plt Count 347 (130-400) K/uL MPV 9.7 (7.4-10.4) fL Immature Gran % (Auto) 0.4 % Neut % (Auto) 79.7 % Lymph % (Auto) 12.1 % [place] % (Auto) 7.2 % Eos % (Auto) 0.5 % Baso % (Auto) 0.1 % Neut # (Auto) 7.46 H (1.4-6.5) K/uL Lymph # (Auto) 1.13 L (1.2-3.4) K/uL [place] # (Auto) 0.67 H (0.11-0.59) K/uL Eos # (Auto) 0.05 (0-0.5) K/uL Baso # (Auto) 0.01 (0-0.2) K/uL Immature Gran # (Auto) 0.04 H (0.00-0.02) K/uL Sodium 134 L (136-145) mmol/L Potassium 4.2 (3.5-5.1) mmol/L Chloride 101 (98-107) mmol/L Carbon Dioxide 26 (21-32) mmol/L Anion Gap 7.0 (3-11) BUN 21 H (7-18) mg/dl Creatinine 0.76 (0.6-1.4) mg/dl Est Cr Clr Drug Dosing 141.5 ml/min Est GFR ( Amer) 120.7 ml/min Est GFR (Non-Af Amer) 104.2 ml/min BUN/Creatinine Ratio 27.4 H (10-20) Glucose 136 H (70-99) mg/dl Lactate 2.2 H* (0.4-2.0) mmol/L Calcium 9.2 (8.5-10.1) mg/dl Total Bilirubin 0.4 (0.2-1) mg/dl AST 30 (15-37) U/L ALT 51 (12-78) U/L Alkaline Phosphatase 100 (45-117) U/L Total Protein 8.3 H (6.4-8.2) gm/dl Albumin 3.2 L (3.4-5.0) gm/dl Globulin 5.1 H (2.5-4.0) gm/dl Albumin/Globulin Ratio 0.6 L (0.9-2) Lipase 91 (73-393) U/L Urine Color Urine Appearance (Clear) Urine pH (4.5-7.5) Ur Specific [place] (1.000-1.030) Urine Protein (Negative) Urine Glucose (UA) (Negative) Urine Ketones (Negative) Urine Blood (Negative) Urine Nitrite (Negative) Urine Bilirubin (Negative) Urine Urobilinogen (Negative) Ur Leukocyte Esterase (Negative) Urine WBC (Auto) (0-5) /hpf Urine RBC (Auto) (0-4) /hpf U Hyaline Cast (Auto) (0-5) /lpf U Epithel Cells (Auto) (0-5) /lpf Urine Bacteria (Auto) (Negative) COVID-19 Eval Order SARS-CoV-2 (PCR) (Negative) 09/23/20 09/23/20 09/23/20 Range/Units 13:55 13:55 15:55 WBC (4.8-10.8) K/uL RBC (4.7-6.1) M/uL Hgb (14.0-18.0) g/dL Hct (42-52) % MCV (80-100) fL MCH (25-34) pg MCHC (32-36) g/dL RDW Std Deviation (36.4-46.3) fL RDW Coeff of Brendon (11.5-14.5) % Plt Count (130-400) K/uL MPV (7.4-10.4) fL Immature Gran % (Auto) % Neut % (Auto) % Lymph % (Auto) % [place] % (Auto) % Eos % (Auto) % Baso % (Auto) % Neut # (Auto) (1.4-6.5) K/uL Lymph # (Auto) (1.2-3.4) K/uL [place] # (Auto) (0.11-0.59) K/uL Eos # (Auto) (0-0.5) K/uL Baso # (Auto) (0-0.2) K/uL Immature Gran # (Auto) (0.00-0.02) K/uL Sodium (136-145) mmol/L Potassium (3.5-5.1) mmol/L Chloride (98-107) mmol/L Carbon Dioxide (21-32) mmol/L Anion Gap (3-11) BUN (7-18) mg/dl Creatinine (0.6-1.4) mg/dl Est Cr Clr Drug Dosing ml/min Est GFR ( Amer) ml/min Est GFR (Non-Af Amer) ml/min BUN/Creatinine Ratio (10-20) Glucose (70-99) mg/dl Lactate (0.4-2.0) mmol/L Calcium (8.5-10.1) mg/dl Total Bilirubin (0.2-1) mg/dl AST (15-37) U/L ALT (12-78) U/L Alkaline Phosphatase (45-117) U/L Total Protein (6.4-8.2) gm/dl Albumin (3.4-5.0) gm/dl Globulin (2.5-4.0) gm/dl Albumin/Globulin Ratio (0.9-2) Lipase (73-393) U/L Urine Color Dark Yellow Urine Appearance Clear (Clear) Urine pH 5.5 (4.5-7.5) Ur Specific [place] > 1.045 H (1.000-1.030) Urine Protein 1+ H (Negative) Urine Glucose (UA) Negative (Negative) Urine Ketones Trace H (Negative) Urine Blood Negative (Negative) Urine Nitrite Negative (Negative) Urine Bilirubin Negative (Negative) Urine Urobilinogen Negative (Negative) Ur Leukocyte Esterase Negative (Negative) Urine WBC (Auto) 5-10 H (0-5) /hpf Urine RBC (Auto) 0-4 (0-4) /hpf U Hyaline Cast (Auto) 1-5 (0-5) /lpf U Epithel Cells (Auto) 20-30 H (0-5) /lpf Urine Bacteria (Auto) Negative (Negative) COVID-19 Eval Order Covid19 at [facility] SARS-CoV-2 (PCR) NEGATIVE (Negative) 09/23/20 Range/Units 16:02 WBC (4.8-10.8) K/uL RBC (4.7-6.1) M/uL Hgb (14.0-18.0) g/dL Hct (42-52) % MCV (80-100) fL MCH (25-34) pg MCHC (32-36) g/dL RDW Std Deviation (36.4-46.3) fL RDW Coeff of Brendon (11.5-14.5) % Plt Count (130-400) K/uL MPV (7.4-10.4) fL Immature Gran % (Auto) % Neut % (Auto) % Lymph % (Auto) % [place] % (Auto) % Eos % (Auto) % Baso % (Auto) % Neut # (Auto) (1.4-6.5) K/uL Lymph # (Auto) (1.2-3.4) K/uL [place] # (Auto) (0.11-0.59) K/uL Eos # (Auto) (0-0.5) K/uL Baso # (Auto) (0-0.2) K/uL Immature Gran # (Auto) (0.00-0.02) K/uL Sodium (136-145) mmol/L Potassium (3.5-5.1) mmol/L Chloride (98-107) mmol/L Carbon Dioxide (21-32) mmol/L Anion Gap (3-11) BUN (7-18) mg/dl Creatinine (0.6-1.4) mg/dl Est Cr Clr Drug Dosing ml/min Est GFR ( Amer) ml/min Est GFR (Non-Af Amer) ml/min BUN/Creatinine Ratio (10-20) Glucose (70-99) mg/dl Lactate 2.0 (0.4-2.0) mmol/L Calcium (8.5-10.1) mg/dl Total Bilirubin (0.2-1) mg/dl AST (15-37) U/L ALT (12-78) U/L Alkaline Phosphatase (45-117) U/L Total Protein (6.4-8.2) gm/dl Albumin (3.4-5.0) gm/dl Globulin (2.5-4.0) gm/dl Albumin/Globulin Ratio (0.9-2) Lipase (73-393) U/L Urine Color Urine Appearance (Clear) Urine pH (4.5-7.5) Ur Specific [place] (1.000-1.030) Urine Protein (Negative) Urine Glucose (UA) (Negative) Urine Ketones (Negative) Urine Blood (Negative) Urine Nitrite (Negative) Urine Bilirubin (Negative) Urine Urobilinogen (Negative) Ur Leukocyte Esterase (Negative) Urine WBC (Auto) (0-5) /hpf Urine RBC (Auto) (0-4) /hpf U Hyaline Cast (Auto) (0-5) /lpf U Epithel Cells (Auto) (0-5) /lpf Urine Bacteria (Auto) (Negative) COVID-19 Eval Order SARS-CoV-2 (PCR) (Negative) Imaging Data Radiologist's Impression: Abdomen/Pelvis CT 09/23/20 10:[address] WITH IV CONTRAST CT DOSE: 956.11 mGy.cm HISTORY: left sided abd pain TECHNIQUE: Multiaxial CT images of the abdomen and pelvis were performed following the use of intravenous contrast. A dose lowering technique was utilized adhering to the principles of ALARA. COMPARISON STUDY: Abdomen and pelvis CT 09/11/2020. FINDINGS: The lung bases are clear. No pneumoperitoneum. No pneumatosis. No fractures within the visualized osseous structures. Heterogeneous appearance to the right lateral abdominal wall muscles with associated subcutaneous edema and right lateral hip musculature is again noted. This has slightly improved in the interval. There has been interval development of enlargement and increased density within the right iliopsoas muscle consistent with an intramuscular hematoma. This measures up to 7.8 cm in diameter. There is also extension of the hemorrhage into the right retroperitoneal space. This results in mild displacement of the right kidney anteriorly without significant mass effect. The spleen remains mildly enlarged measuring 13 cm in length. No hepatic or splenic masses. Cholelithiasis is again noted. The adrenal glands and pancreas are unremarkable. No retroperitoneal lymphadenopathy. Normal caliber abdominal aorta. The bladder is mildly distended. The prostate gland is mildly enlarged. There are small fat-containing bilateral inguinal hernias, unchanged. A few colonic diverticula. No evidence for acute diverticulitis. No bowel wall thicke janes or obstruction. The appendix is not well visualized due to the adjacent intraperitoneal hemorrhage. No hydronephrosis. A few small hypodense lesions within the left kidney remain unchanged. Dominant exophytic lesion within the lower pole the left kidney on image 216 measuring 9 mm. This does not represent a simple cyst but favors a hyperdense cyst when compared to the recent abdominal MRI. IMPRESSION: 1. Interval development of a moderate right iliopsoas/retroperitoneal hematoma. 2. Slight improvement in the heterogeneous abnormality/inflammatory process within the right lateral abdominal wall and right hip musculature. 3. Stable mild splenomegaly. 4. Cholelithiasis. ACT 112: Negative or not required by law. Electronically signed by: Andrea Beltre M.D. 09/23/2020 12:40 PM ECG Data Attestation: I personally reviewed and interpreted this ECG as follows: Indication: + abdominal pain Rate (beats per minute): 93 Rhythm: + normal sinus ECG Intervals/blocks: + Normal QRS ECG ST segments: + Nonspecific ST abnormalities ECG Findings: no PACs or no PVCs Comparison ECG Date: from (09/11/20) Change: the following changes noted (Rate has increased) MDM Narrative This patient comes in as described above. He was placed on a teletypesetter monitor in room C 12. Here for treatment evaluation of left-sided abdominal pain. He has a very complex medical history was just released from [place] yesterday. It was thought that he had an abscess when he was sent down there but according to the paperwork they did not feel he had an infectious process. IV access was established. I did order CAT scan and blood work as well as urinalysis. He has no fever or white count to suggest infectious lactic acid is mildly elevated. He has no acute electrolyte or metabolic abnormality. I did do a CAT scan of his abdomen and he does have a new Right iliopsoas/intraperitoneal hematoma. There is no mention of any active extravasation.the old area/lesion has gotten slightly better. I did discuss the case with the [facility] hospitalist. I also discussed the case with the on-call [facility] surgeon in [place] who felt that we could keep the patient here rather than transfer. The hospitalist will monitor the patient's hemoglobin. Teams cardiac monitoring: Orders placed in EMR for continuous cardiac monitoring. Upon my interpretation the patient was noted to be in normal sinus rhythm with a rate of 85. Impression & Plan Hematoma of right iliopsoas muscle, Chronic paraplegia, Abnormal CT scan, Abdominal pain, Lab test negative for COVID-19 virus Discharge Plan Visit Data Chief Complaint: Abdominal Pain ED Provider: Julius Muñoz Discharge Problem: Hematoma of right iliopsoas muscle, Chronic paraplegia, Abnormal CT scan, Abdominal pain, Lab test negative for COVID-19 virus Forms Stand Alone Forms: My [facility] Prescriptions Prescriptions: No Action ascorbic acid (vitamin C) [Vitamin C] 1,000 mg Tablet 1 g PO QAM RF: 0 tizanidine 4 mg Tablet 8 mg PO HS RF: 0 pyridoxine (vitamin B6) 100 mg Tablet 100 mg PO QAM RF: 0 magnesium oxide 400 mg magnesium Tablet 400 mg PO 3XWK RF: 0 omeprazole 40 mg Capsule,Delayed Release(Dr/Ec) 40 mg PO QPM RF: 0 tamsulosin 0.4 mg Capsule 0.4 mg PO HS RF: 0 acetaminophen [Tylenol] 325 mg Capsule 650 mg PO Q6H PRN (Reason: Pain) RF: 0 diphenhydramine-acetaminophen [Tylenol PM Extra Strength] 25-500 mg Tablet 2 tab PO HS RF: 0 furosemide 40 mg tablet 40 mg PO DAILY RF: 0 Referrals Referrals: Alexis Yost MD [Primary Care Provider] - Discharge Problem: Hematoma of right iliopsoas muscle Qualifiers: Encounter type: initial encounter Qualified Code(s): S70.11XA - Contusion of right thigh, initial encounter Abdominal pain Qualifiers: Abdominal location: left lower quadrant Qualified Code(s): R10.32 - Left lower quadrant pain
[2020-09-23 10:35] LABS: Basophils # (auto) 0.01 K/uL (0-0.2); Basophils % (auto) 0.1 %; Eosinophils # (auto) 0.05 K/uL (0-0.5); Eosinophils % (auto) 0.5 %; Hematocrit (blood only) 35.5 % (42-52); Immature Granulocytes # (auto) 0.04 K/uL (0.00-0.02); Immature Granulocytes % (auto) 0.4 %; Lymphocytes # (auto) 1.13 K/uL (1.2-3.4); Lymphocytes % (auto) 12.1 %; Mean Corpuscular Hemoglobin 24.9 pg (25-34); Mean Corpuscular Volume 80.3 fL (80-100); Mean Platelet Volume 9.7 fL (7.4-10.4); Monocytes # (auto) 0.67 K/uL (0.11-0.59); Monocytes % (auto) 7.2 %; Neutrophils # (auto) 7.46 K/uL (1.4-6.5); Neutrophils % (auto) 79.7 %; Platelet Count 347 K/uL (130-400); RDW Coefficient of Variation 16.4 % (11.5-14.5); RDW Standard Deviation 48.5 fL (36.4-46.3); Red Blood Count 4.42 M/uL (4.7-6.1); White Blood Count 9.36 K/uL (4.8-10.8)
[2020-09-23 11:05] LABS: Albumin Level 3.2 gm/dl (3.4-5.0); BUN Creatinine Ratio 27.4 (10-20); Calcium 9.2 mg/dl (8.5-10.1); Creatinine Clr Calc Pharmacy 141.5 ml/min; Est GFR (African American) 120.7 ml/min; Est GFR (Non-African American) 104.2 ml/min; Potassium 4.2 mmol/L (3.5-5.1)
[2020-09-23 11:08] LABS: Albumin Globulin Ratio 0.6 (0.9-2); Bilirubin,Total 0.4 mg/dl (0.2-1); Globulin 5.1 gm/dl (2.5-4.0); Total Protein 8.3 gm/dl (6.4-8.2)
[2020-09-23] MEDS ORDERED: OPTIRAY 320 100ml IV ONE (11:28)
--- NOTE | 2020-09-23 12:40 | Electrocardiogram Report ---
Test Reason : Blood Pressure : / mmHG Vent. Rate : 096 BPM Atrial Rate : 096 BPM P-R Int : 120 ms QRS Dur : 072 ms QT Int : 338 ms P-R-T Axes : 063 -08 025 degrees QTc Int : 427 ms Poor data quality, interpretation may be adversely affected Normal sinus rhythm Minor Nonspecific ST abnormality Anterior leads Abnormal ECG When compared with ECG of 11-SEP-2020 10:46, No significant change was found Confirmed by Fredy Fisher ([id number]) on 09/23/2020 12:40:24 PM Referred By: REFERRED SELF Confirmed By:Fredy Fisher
--- NOTE | 2020-09-23 12:41 | CT Scan Report ---
ABDOMEN AND PELVIS CT WITH IV CONTRAST CT DOSE: 956.11 mGy.cm HISTORY: left sided abd pain TECHNIQUE: Multiaxial CT images of the abdomen and pelvis were performed following the use of intrave nous contrast. A dose lowering technique was utilized adhering to the principles of ALARA. COMPARISON STUDY: Abdomen and pelvis CT 09/11/2020. FINDINGS: The lung bases are clear. No pneumoperitoneum. No pneumatosis. No fractures within the visu alized osseous structures. Heterogeneous appearance to the right lateral abdominal wall muscles with associated subcutaneous edema and right lateral hip musculature is again noted. This has slightly imp roved in the interval. There has been interval development of enlargement and increased density withi n the right iliopsoas muscle consistent with an intramuscular hematoma. This measures up to 7.8 cm in diameter. There is also extension of the hemorrhage into the right retroperitoneal space. This resul ts in mild displacement of the right kidney anteriorly without significant mass effect. The spleen re irene mildly enlarged measuring 13 cm in length. No hepatic or splenic masses. Cholelithiasis is agai n noted. The adrenal glands and pancreas are unremarkable. No retroperitoneal lymphadenopathy. Normal caliber abdominal aorta. The bladder is mildly distended. The prostate gland is mildly enlarged. The re are small fat-containing bilateral inguinal hernias, unchanged. A few colonic diverticula. No evid ence for acute diverticulitis. No bowel wall thickening or obstruction. The appendix is not well visu alized due to the adjacent intraperitoneal hemorrhage. No hydronephrosis. A few small hypodense lesio ns within the left kidney remain unchanged. Dominant exophytic lesion within the lower pole the left kidney on image 216 measuring 9 mm. This does not represent a simple cyst but favors a hyperdense cys t when compared to the recent abdominal MRI. IMPRESSION: 1. Interval development of a moderate right iliopsoas/retroperitoneal hematoma. 2. Slight improvement in the heterogeneous abnormality/inflammatory process within the right lateral abdominal wall and right hip musculature. 3. Stable mild splenomegaly. 4. Cholelithiasis. ACT 112: Negative or not required by law. Electronically signed by: Andrea Beltre M.D. 09/23/2020 12:40 PM
[2020-09-23] MEDS ORDERED: CYCLOBENZAPRINE HCL 10 MG TAB PO STA (15:20)
[2020-09-23] MEDS ORDERED: ONDANSETRON INJ 2 MG/ML 2 ML VIAL IV STA (15:20)
[2020-09-23] MEDS ORDERED: ACETAMINOPHEN 1000 MG/100 ML IV IV ONE (15:22)
--- NOTE | 2020-09-23 16:05 | History & Physical Report ---
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 Pt with recent admission and transfer to [facility] with discharge from there09/22/20 for Abnormal MRI of the abdomen with findings of 11.3 x 4.2 x 8.2 cm collection within right anterior abdominal wall which shows peripheral enhancement after intravenous contrast administration concerning for abscess. 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 No evidence of osteomyelitis. At [facility] was evaluated by ID and IV antibiotics were discontinued. IR reviewed image, noted to have only necrosis, no evidence of abscess to drain. Surgery was also consulted, imaging finding were likely due to pressure injury to his muscles, therefore no surgical intervention was recommended. blood culture remained negative. Was also seen by rheum and ortho for R hip joint effusion on imaging, effusion too small for aspiration, septic or rheumatological process was not anticipated by ortho and rheum. It was also discussed with [facility] radiologist but it was too small effusion. He was also seen by neurosurgery for worsening weakness of lower extremities, MRI was with chronic changes, no any acute intervention was recommended by neurosurgery, has outpatient follow up scheduled Today c/o cramping type pain across abdomen. Constipation x1 week. Denies fever, chills, vomiting Today in ER patient afebrile, vital stable. CT abdomen pelvis was obtained showing Interval development of a moderate right iliopsoas/retroperitoneal hematoma. Slight improvement in the heterogeneous abnormality/inflammatory process within the right lateral abdominal wall and right hip musculature. Stable mild splenomegaly. Cholelithiasis. ER physician spoke to general surgeon at [facility] who recommended that patient did not require transfer to at this time. Clear fluids for now H&H every 6 hours General surgery consult, recommends no acute surgical intervention required at this time. Recommends serial H&H and abdominal examinations. If there is concern for active bleeding would need transferred for IR intervention for possible embolization. May need to repeat CT scan of abd/pelvis if hemoglobin drops or abdominal pain increases. Constipation Bowel regimen Ependymoma: Chronic paraplegia: Spastic hemiparesis: Status post surgical resection and XRT in the Continue tizanidine at bedtime Continue f/u with neurosurgery Anemia: H/O iron deficiency Hgb: 11. Baseline ~10 Monitor H&H GERD: continue PPI DVT prophylaxis: SCDs Full Code as per discussion with pt Follows with Dr Yost for routine care Pt was seen and care coordinated with Dr Tellez. 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 Pt with recent admission and transfer to [facility] with discharge from there yesterday for Abnormal MRI of the abdomen with findings of 11.3 x 4.2 x 8.2 cm collection within right anterior abdominal wall which shows peripheral enhancement after intravenous contrast administration concerning for abscess. 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 No evidence of osteomyelitis. At [facility] was initially treated with IV antibiotics. At [facility] was evaluated by ID and IV antibiotics were discontinued. IR reviewed image, noted to have only nec rosis, no evidence of abscess to drain. Surgery was also consulted, imaging finding were likely due to pressure injury to his muscles, therefore no surgical intervention was recommended. blood culture remained negative. Was also seen by rheum and ortho for R hip joint effusion on imaging, effusion too small for aspiration, septic or rheumatological process was not anticipated by ortho and rheum. It was also discussed with [facility] radiologist but it was too small effusion. He was also seen by neurosurgery for worsening weakness of lower extremities, MRI was with chronic changes, no any acute intervention was recommended by neurosurgery, has outpatient follow up scheduled Today c/o cramping type pain across abdomen. Reports past week has had constipation while hospitalized. Yesterday at home he did have bowel movement. Denies dysuria, hematuria. Patient uses wheelchair and has difficulty getting up to use toilet. He reports irritated skin to groin and buttocks. Patient reports some nausea today. Denies vomiting. Patient is not on any chronic anticoagulation. Was receiving VTE prophylaxis while in hospital. Denies fever or chills, diaphoresis, melena, hematochezia WINTERS, dizziness, syncope, vision changes, neck pain, CP, SOB, orthopnea, palpitations, cough, sore throat, choking, otalgia, rhinorrhea, paresthesias, weakness, extremity weakness, extremity edema, rashes. Today in ER patient afebrile, vital stable. CT abdomen pelvis was obtained showing Interval development of a moderate right iliopsoas/retroperitoneal hematoma. Slight improvement in the heterogeneous abnormality/inflammatory process within the right lateral abdominal wall and right hip musculature. Stable mild splenomegaly. Cholelithiasis. ER physician spoke to general surgeon at [facility] who recommended that patient did not require transfer to at this time. Patient being admitted for further evaluation and observation Allergies Allergy/AdvReac Type Severity Reaction Status Date / Time vancomycin Allergy Severe Rash Verified 09/23/20 16:42 amantadine AdvReac Severe CHEST Verified 09/23/20 21:48 PAIN, ANXIETY Home Medications Medication Instructions Recorded Confirmed Type ascorbic acid (vitamin C) 1,000 mg 1 g PO QAM 07/09/18 09/23/20 History tablet (Vitamin C) magnesium oxide 400 mg PO 3XWK 07/09/18 09/23/20 History pyridoxine (vitamin B6) 100 mg 100 mg PO QAM 07/09/18 09/23/20 History tablet tizanidine 4 mg tablet 8 mg PO HS 07/09/18 09/23/20 History omeprazole 40 mg capsule,delayed 40 mg PO QPM 08/18/18 09/23/20 History release tamsulosin 0.4 mg capsule 0.4 mg PO HS 08/18/18 09/23/20 History acetaminophen 325 mg capsule 650 mg PO Q6H PRN 09/18/18 09/23/20 History (Tylenol) diphenhydramine 25 2 tab PO HS 09/11/20 09/23/20 History mg-acetaminophen 500 mg tablet (Tylenol PM Extra Strength) L.acidop,casei,lactis,rham-B.lact,omkar 2 cap PO DAILY #30 cap 10/03/20 Rx 625 mg (10 billion cell) capsule (Advanced Probiotic) docusate sodium 100 mg capsule 100 mg PO BID #30 cap 10/03/20 Rx lidocaine 5 % topical patch 1 patch TRANSDERMAL DAILY@1700 #15 10/03/20 Rx ea triamcinolone acetonide 0.025 % 1 applic EXT BID 7 Days g 10/03/20 Rx topical cream Past Med/Surg History Medical History Anemia iron deficiency Chronic neck pain Ependymoma GERD (gastroesophageal reflux disease) 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 History of gastric ulcer Left arm numbness chronic s/p left arm surgery Spastic hemiparesis 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 (no further details)- paralyzed from the chest down initially which significantly improved with (able to walk with crunches) with therapy, increased LE weakness 2007 and now patient wheelchair bound felt 2/2 nerve damage Surgical History H/O bursectomy left elbow H/O cervical spine surgery 1990 (benign cystectomy) + scar tissue removal H/O eye surgery foreign body (metal) removal from left eye History of esophagogastroduodenoscopy (EGD) EGD: 07/16/18: MAC sedation at [facility] Family History Father Hypertension Other No family history of adverse response to anesthesia Social History Smoking Status: Never smoker Second Hand Exposure: No; Hx Alcohol Use: No Hx Substance Use: No Preferred Language: Welsh Communication Ability: Effective Scale Operator Required: No Beliefs That Will Affect Care: None Current Living Situation: Spouse Current Living Situation Comment: Lives with and daughter and 1 granddaughter Feels Safe at Home: Yes Assistive Devices: Wheelchair Results & Data Results & Data ([facility]) Vital Signs (Past 12 Hours) Vital Signs Temp Pulse Pulse Resp BP BP Pulse Ox 09/23/20 15:08 90 18 131/76 99 09/23/20 14:55 80 18 114/70 99 09/23/20 11:11 95 H 18 114/72 98 09/23/20 10:57 99 09/23/20 10:56 114/72 09/23/20 09:22 36.8 C 100 H 18 96/71 L 99 Code Status & VTE Plan VTE Prophylaxis Plan VTE Prophylaxis will be ordered: Yes Supervising Physician Co-Signing Physician Notes Pt was seen and examined. Agreed with Chanda ALVAREZ exam, assessment an plan. 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 Pt was recently admitted then transfer to [place] on 09/15 during his last hospitalization for abnormal MRI of the abdomen with findings of 11.3 x 4.2 x 8.2 cm collection within right anterior abdominal wall which shows peripheral enhancement after intravenous contrast administration concerning for abscess. He said that he was discharge from [facility] last night. Today he complaints of severe pain across his abdomen. He said that he has been constipated for about 1 week. Denies fever, chills, vomiting, palpitation and SOB. CT abdomen/pelvis on admission showed interval development of a moderate right iliopsoas/retroperitoneal hematoma. Slight improvement in the heterogeneous abnormality/inflammatory process within the right lateral abdominal wall and right hip musculature. ER physician spoke to general surgeon at [facility] who recommended that patient did not require transfer to at this time. Surgery was consulted that recommended no acute surgical intervention required at this time. Will need serial H/H. If there is concern for active bleeding would need transferred for IR intervention for possible embolization. May need to repeat CT scan of abd/pelvis if hemoglobin drops or abdominal pain increases. will start on clear liquid diet. Continue pain control. Will add bowel regimen to help with bowel movement. Monitor H/H and electrolytes. Continue monitor closely. MD Rosalinda (1) Hematoma of right iliopsoas muscle Encounter type: initial encounter Qualified Code(s): S70.11XA - Contusion of right thigh, initial encounter (2) Abdominal pain Abdominal location: left lower quadrant Qualified Code(s): R10.32 - Left lower quadrant pain
[2020-09-23 16:15] LABS: Appearance Urine Clear (Clear); Bacteria Urine Automated Negative (Negative); Bilirubin Urine Negative (Negative); Blood Urine Negative (Negative); Color Urine Dark Yellow; Epithelial Cell Urine Auto 20-30 /lpf (0-5); Glucose Urine UA Negative (Negative); Ketones Urine Trace (Negative); Leukocyte Esterase Urine Negative (Negative); Nitrite Urine Negative (Negative); Protein Urine 1+ (Negative); RBC Urine Automated 0-4 /hpf (0-4); Specific Gravity Urine > 1.045 (1.000-1.030); Urobilinogen Urine Negative (Negative); pH Urine 5.5 (4.5-7.5)
--- NOTE | 2020-09-23 16:24 | Surgery Consultation ---
Date of Consultation September 23, 2020 Assessment & Plan (1) Hematoma of right iliopsoas muscle: 55 year-old male with recent admission to [facility] and found to have possible right lower chest and right abdominal wall abscess vs infection as well as right hip infection/inflammatory process. Transferred to [facility] for possible IR intervention however felt to not have infection and no IR intervention performed. Presents today for abdominal pain, nausea. Repeat CT scan showing right iliopsoas/retroperitoneal hematoma. Hemoglobin 11. Hemodynamically stable. Abdomen is benign. Plan: No acute surgical intervention required at this time. Recommend serial H&H and abdominal examinations. If there is concern for active bleeding would need transferred for IR intervention for possible embolization. May need to repeat CT scan of abd/pelvis if hemoglobin drops or abdominal pain increases. will follow along Patient seen and examined Agree with above. (2) Abnormal CT scan: (3) Anemia: Dr. Braden has seen and examined patient, agrees with above. History of Present Illness Reason for Consultation: Iliopsoas hematoma and retroperitoneal hematoma Requesting Physician: Chanda Flores PA-C Attending Physician: Dr. Tellez History of Present Illness Mr. 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 Was transferred to [facility] for possible IR intervention however this was not required after further evaluation by IR, infectious disease, and general surgery at [facility]. He was discharged from [facility] just yesterday. He states he was feeling fine yesterday on drive home and then this morning starting having severe abdominal pain, nausea, and dry heaves. States the pain would come in waves of severe spasms and then would ease up. Never had anything like it before. States his brother had to lift him out of car when he arrived home. He had a CT scan of abdomen in pelvis in ER which showed right iliopsoas hematoma with retroperitoneal component with mild displacement of the right Kidney. His white count was normal. And hemoglobin 11. Was 9 and 10 on prior admission. Allergies Allergy/AdvReac Type Severity Reaction Status Date / Time amantadine Allergy Severe CHEST Verified 09/23/20 16:42 PAIN, ANXIETY vancomycin Allergy Severe Rash Verified 09/23/20 16:42 Home Medications Medication Instructions Recorded Confirmed Type ascorbic acid (vitamin C) 1,000 mg 1 g PO QAM 07/09/18 09/23/20 History tablet (Vitamin C) magnesium oxide 400 mg PO 3XWK 07/09/18 09/23/20 History pyridoxine (vitamin B6) 100 mg 100 mg PO QAM 07/09/18 09/23/20 History tablet tizanidine 4 mg tablet 8 mg PO HS 07/09/18 09/23/20 History omeprazole 40 mg capsule,delayed 40 mg PO QPM 08/18/18 09/23/20 History release tamsulosin 0.4 mg capsule 0.4 mg PO HS 08/18/18 09/23/20 History acetaminophen 325 mg capsule 650 mg PO Q6H PRN 09/18/18 09/23/20 History (Tylenol) diphenhydramine 25 2 tab PO HS 09/11/20 09/23/20 History mg-acetaminophen 500 mg tablet (Tylenol PM Extra Strength) furosemide 40 mg tablet 40 mg PO DAILY 09/23/20 09/23/20 History Patient History Medical History Anemia iron deficiency Chronic neck pain Ependymoma GERD (gastroesophageal reflux disease) 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 History of gastric ulcer Left arm numbness chronic s/p left arm surgery Spastic hemiparesis 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 (no further details)- paralyzed from the chest down initially which significantly improved with (able to walk with crunches) with therapy, increased LE weakness 2007 and now patient wheelchair bound felt 2/2 nerve damage Surgical History H/O bursectomy left elbow H/O cervical spine surgery 1990 (benign cystectomy) + scar tissue removal H/O eye surgery foreign body (metal) removal from left eye History of esophagogastroduodenoscopy (EGD) EGD: 07/16/18: MAC sedation at [facility] Family History Father Hypertension Other No family history of adverse response to anesthesia Social History Smoking Status: Never smoker Second Hand Exposure: No; Hx Alcohol Use: No Hx Substance Use: No Preferred Language: Welsh Communication Ability: Effective Sr. Director Required: No Beliefs That Will Affect Care: None Current Living Situation: Spouse Current Living Situation Comment: Lives with and daughter and 1 granddaughter Feels Safe at Home: Yes Assistive Devices: Wheelchair Review of Systems Review of Systems: All systems reviewed & are unremarkable except as noted in HPI & below Physical Exam Constitutional: WD/WN, vitals as above cooperative and comfortable; no acute distress, not ill appearing and not disheveled Respiratory: normal respiratory effort, lungs clear to auscultation Cardiovascular: RRR, no murmur, no edema Gastrointestinal (Abdomen): Inspection/Auscultation: abdomen normal to inspection; abdomen not distended, + abnormal bowel sounds (hypoactive) and no abdominal surgical scar Percussion/Palpation: + abdomen tender (left lower quadrant) and abdomen soft; no guarding and abdomen not rigid Skin: no rashes, warm and dry no ecchymosis Psychiatric: A+Ox3, euthymic affect Results & Data ([facility]) Vital Signs (Past 12 Hours) Vital Signs Temp Pulse Pulse Resp BP BP Pulse Ox 09/23/20 15:08 90 18 131/76 99 09/23/20 14:55 80 18 114/70 99 09/23/20 11:11 95 H 18 114/72 98 09/23/20 10:57 99 09/23/20 10:56 114/72 09/23/20 09:22 36.8 C 100 H 18 96/71 L 99 Laboratory Results 09/23/20 09/23/20 09/23/20 Range/Units 16:02 15:55 13:55 WBC (4.8-10.8) K/uL RBC (4.7-6.1) M/uL Hgb (14.0-18.0) g/dL Hct (42-52) % MCV (80-100) fL MCH (25-34) pg MCHC (32-36) g/dL RDW Std Deviation (36.4-46.3) fL RDW Coeff of Brendon (11.5-14.5) % Plt Count (130-400) K/uL MPV (7.4-10.4) fL Immature Gran % (Auto) % Neut % (Auto) % Lymph % (Auto) % Barren % (Auto) % Eos % (Auto) % Baso % (Auto) % Neut # (Auto) (1.4-6.5) K/uL Lymph # (Auto) (1.2-3.4) K/uL Barren # (Auto) (0.11-0.59) K/uL Eos # (Auto) (0-0.5) K/uL Baso # (Auto) (0-0.2) K/uL Immature Gran # (Auto) (0.00-0.02) K/uL Sodium (136-145) mmol/L Potassium (3.5-5.1) mmol/L Chloride (98-107) mmol/L Carbon Dioxide (21-32) mmol/L Anion Gap (3-11) BUN (7-18) mg/dl Creatinine (0.6-1.4) mg/dl Est Cr Clr Drug Dosing ml/min Est GFR ( Amer) ml/min Est GFR (Non-Af Amer) ml/min BUN/Creatinine Ratio (10-20) Glucose (70-99) mg/dl Lactate 2.0 (0.4-2.0) mmol/L Calcium (8.5-10.1) mg/dl Total Bilirubin (0.2-1) mg/dl AST (15-37) U/L ALT (12-78) U/L Alkaline Phosphatase (45-117) U/L Total Protein (6.4-8.2) gm/dl Albumin (3.4-5.0) gm/dl Globulin (2.5-4.0) gm/dl Albumin/Globulin Ratio (0.9-2) Lipase (73-393) U/L Urine Color Dark Yellow Urine Appearance Clear (Clear) Urine pH 5.5 (4.5-7.5) Ur Specific [place] > 1.045 H (1.000-1.030) Urine Protein 1+ H (Negative) Urine Glucose (UA) Negative (Negative) Urine Ketones Trace H (Negative) Urine Blood Negative (Negative) Urine Nitrite Negative (Negative) Urine Bilirubin Negative (Negative) Urine Urobilinogen Negative (Negative) Ur Leukocyte Esterase Negative (Negative) Urine WBC (Auto) 5-10 H (0-5) /hpf Urine RBC (Auto) 0-4 (0-4) /hpf U Hyaline Cast (Auto) 1-5 (0-5) /lpf U Epithel Cells (Auto) 20-30 H (0-5) /lpf Urine Bacteria (Auto) Negative (Negative) COVID-19 Eval Order SARS-CoV-2 (PCR) NEGATIVE (Negative) 09/23/20 09/23/20 09/23/20 Range/Units 13:55 10:54 10:10 WBC (4.8-10.8) K/uL RBC (4.7-6.1) M/uL Hgb (14.0-18.0) g/dL Hct (42-52) % MCV (80-100) fL MCH (25-34) pg MCHC (32-36) g/dL RDW Std Deviation (36.4-46.3) fL RDW Coeff of Brendon (11.5-14.5) % Plt Count (130-400) K/uL MPV (7.4-10.4) fL Immature Gran % (Auto) % Neut % (Auto) % Lymph % (Auto) % Barren % (Auto) % Eos % (Auto) % Baso % (Auto) % Neut # (Auto) (1.4-6.5) K/uL Lymph # (Auto) (1.2-3.4) K/uL Barren # (Auto) (0.11-0.59) K/uL Eos # (Auto) (0-0.5) K/uL Baso # (Auto) (0-0.2) K/uL Immature Gran # (Auto) (0.00-0.02) K/uL Sodium 134 L (136-145) mmol/L Potassium 4.2 (3.5-5.1) mmol/L Chloride 101 (98-107) mmol/L Carbon Dioxide 26 (21-32) mmol/L Anion Gap 7.0 (3-11) BUN 21 H (7-18) mg/dl Creatinine 0.76 (0.6-1.4) mg/dl Est Cr Clr Drug Dosing 141.5 ml/min Est GFR ( Amer) 120.7 ml/min Est GFR (Non-Af Amer) 104.2 ml/min BUN/Creatinine Ratio 27.4 H (10-20) Glucose 136 H (70-99) mg/dl Lactate 2.2 H* (0.4-2.0) mmol/L Calcium 9.2 (8.5-10.1) mg/dl Total Bilirubin 0.4 (0.2-1) mg/dl AST 30 (15-37) U/L ALT 51 (12-78) U/L Alkaline Phosphatase 100 (45-117) U/L Total Protein 8.3 H (6.4-8.2) gm/dl Albumin 3.2 L (3.4-5.0) gm/dl Globulin 5.1 H (2.5-4.0) gm/dl Albumin/Globulin Ratio 0.6 L (0.9-2) Lipase 91 (73-393) U/L Urine Color Urine Appearance (Clear) Urine pH (4.5-7.5) Ur Specific [place] (1.000-1.030) Urine Protein (Negative) Urine Glucose (UA) (Negative) Urine Ketones (Negative) Urine Blood (Negative) Urine Nitrite (Negative) Urine Bilirubin (Negative) Urine Urobilinogen (Negative) Ur Leukocyte Esterase (Negative) Urine WBC (Auto) (0-5) /hpf Urine RBC (Auto) (0-4) /hpf U Hyaline Cast (Auto) (0-5) /lpf U Epithel Cells (Auto) (0-5) /lpf Urine Bacteria (Auto) (Negative) COVID-19 Eval Order Covid19 at [facility] SARS-CoV-2 (PCR) (Negative) 09/23/20 Range/Units 10:10 WBC 9.36 (4.8-10.8) K/uL RBC 4.42 L (4.7-6.1) M/uL Hgb 11.0 L (14.0-18.0) g/dL Hct 35.5 L (42-52) % MCV 80.3 (80-100) fL MCH 24.9 L (25-34) pg MCHC 31.0 L (32-36) g/dL RDW Std Deviation 48.5 H (36.4-46.3) fL RDW Coeff of Brendon 16.4 H (11.5-14.5) % Plt Count 347 (130-400) K/uL MPV 9.7 (7.4-10.4) fL Immature Gran % (Auto) 0.4 % Neut % (Auto) 79.7 % Lymph % (Auto) 12.1 % Barren % (Auto) 7.2 % Eos % (Auto) 0.5 % Baso % (Auto) 0.1 % Neut # (Auto) 7.46 H (1.4-6.5) K/uL Lymph # (Auto) 1.13 L (1.2-3.4) K/uL Barren # (Auto) 0.67 H (0.11-0.59) K/uL Eos # (Auto) 0.05 (0-0.5) K/uL Baso # (Auto) 0.01 (0-0.2) K/uL Immature Gran # (Auto) 0.04 H (0.00-0.02) K/uL Sodium (136-145) mmol/L Potassium (3.5-5.1) mmol/L Chloride (98-107) mmol/L Carbon Dioxide (21-32) mmol/L Anion Gap (3-11) BUN (7-18) mg/dl Creatinine (0.6-1.4) mg/dl Est Cr Clr Drug Dosing ml/min Est GFR ( Amer) ml/min Est GFR (Non-Af Amer) ml/min BUN/Creatinine Ratio (10-20) Glucose (70-99) mg/dl Lactate (0.4-2.0) mmol/L Calcium (8.5-10.1) mg/dl Total Bilirubin (0.2-1) mg/dl AST (15-37) U/L ALT (12-78) U/L Alkaline Phosphatase (45-117) U/L Total Protein (6.4-8.2) gm/dl Albumin (3.4-5.0) gm/dl Globulin (2.5-4.0) gm/dl Albumin/Globulin Ratio (0.9-2) Lipase (73-393) U/L Urine Color Urine Appearance (Clear) Urine pH (4.5-7.5) Ur Specific [place] (1.000-1.030) Urine Protein (Negative) Urine Glucose (UA) (Negative) Urine Ketones (Negative) Urine Blood (Negative) Urine Nitrite (Negative) Urine Bilirubin (Negative) Urine Urobilinogen (Negative) Ur Leukocyte Esterase (Negative) Urine WBC (Auto) (0-5) /hpf Urine RBC (Auto) (0-4) /hpf U Hyaline Cast (Auto) (0-5) /lpf U Epithel Cells (Auto) (0-5) /lpf Urine Bacteria (Auto) (Negative) COVID-19 Eval Order SARS-CoV-2 (PCR) (Negative) Diagnostic Findings ABDOMEN AND PELVIS CT WITH IV CONTRAST CT DOSE: 956.11 mGy.cm HISTORY: left sided abd pain TECHNIQUE: Multiaxial CT images of the abdomen and pelvis were performed following the use of intravenous contrast. A dose lowering technique was utilized adhering to the principles of ALARA. COMPARISON STUDY: Abdomen and pelvis CT 09/11/2020. FINDINGS: The lung bases are clear. No pneumoperitoneum. No pneumatosis. No fractures within the visualized osseous structures. Heterogeneous appearance to the right lateral abdominal wall muscles with associated subcutaneous edema and right lateral hip musculature is again noted. This has slightly improved in the interval. There has been interval development of enlargement and increased density within the right iliopsoas muscle consistent with an intramuscular hematoma. This measures up to 7.8 cm in diameter. There is also extension of the hemorrhage into the right retroperitoneal space. This results in mild displacement of the right kidney anteriorly without significant mass effect. The spleen remains mildly enlarged measuring 13 cm in length. No hepatic or splenic masses. Cholelithiasis is again noted. The adrenal glands and pancreas are unremarkable. No retroperitoneal lymphadenopathy. Normal caliber abdominal aorta. The bladder is mildly distended. The prostate gland is mildly enlarged. There are small fat-containing bilateral inguinal hernias, unchanged. A few colonic diverticula. No evidence for acute diverticulitis. No bowel wall thickening or obstruction. The appendix is not well visualized due to the adjacent intraperitoneal hemorrhage. No hydronephrosis. A few small hypodense lesions within the left kidney remain unchanged. Dominant exophytic lesion within the lower pole the left kidney on image 216 measuring 9 mm. This does not represent a simple cyst but favors a hyperdense cyst when compared to the recent abdominal MRI. IMPRESSION: 1. Interval development of a moderate right iliopsoas/retroperitoneal hematoma. 2. Slight improvement in the heterogeneous abnormality/inflammatory process within the right lateral abdominal wall and right hip musculature. 3. Stable mild splenomegaly. 4. Cholelithiasis.
[2020-09-23] MEDS ORDERED: POLYETHYLENE (MIRALAX) 17 GM PACK PO PRN (21:44)
[2020-09-23] MEDS: ACETAMINOPHEN 325 MG TAB PO PRN (22:39)
[2020-09-23] MEDS: ONDANSETRON INJ 2 MG/ML 2 ML VIAL IV PRN (22:40)
[2020-09-23 22:52] LABS: Hematocrit (blood only) 32.3 % (42-52)
[2020-09-23] MEDS: DOCUSATE SODIUM 100 MG CAP PO SCH (23:21)
[2020-09-23] MEDS: TAMSULOSIN HCL 0.4 MG CAP PO SCH (23:21)
[2020-09-23] MEDS: tiZANidine HCL 4 MG TABLET PO SCH (23:22)
[2020-09-23] MEDS: PANTOprazole 40 MG TAB PO SCH (23:22)
[2020-09-23] MEDS ORDERED: MICONAZOLE NITRATE POWDER 43 GM EXT PRN (23:28)
[2020-09-24 03:59] LABS: Hematocrit (blood only) 29.5 % (42-52); Hemoglobin 8.9 g/dL (14.0-18.0); Mean Corpuscular Hemoglobin 23.9 pg (25-34); Mean Corpuscular Hgb Conc 30.2 g/dL (32-36); Mean Corpuscular Volume 79.3 fL (80-100); Mean Platelet Volume 9.2 fL (7.4-10.4); Platelet Count 304 K/uL (130-400); RDW Coefficient of Variation 16.6 % (11.5-14.5); RDW Standard Deviation 48.3 fL (36.4-46.3); Red Blood Count 3.72 M/uL (4.7-6.1); White Blood Count 7.93 K/uL (4.8-10.8)
[2020-09-24 04:15] LABS: Calcium 8.7 mg/dl (8.5-10.1); Creatinine Clr Calc Pharmacy 169.1 ml/min; Est GFR (African American) 131.3 ml/min; Est GFR (Non-African American) 113.3 ml/min; Potassium 3.7 mmol/L (3.5-5.1)
--- NOTE | 2020-09-24 09:31 | CT Scan Report ---
CT SCAN OF THE ABDOMEN AND PELVIS WITHOUT IV CONTRAST CLINICAL HISTORY: Follow-up retroperitoneal hematoma. COMPARISON STUDY: Abdominal CT dated 09/23/2020. TECHNIQUE: CT scan of the abdomen and pelvis is performed from the lung bases to the proximal femora. Images are reviewed in the axial, sagittal, and coronal planes. IV contrast was not administered for this examination. A dose lowering technique was utilized adhering to the principles of ALARA. CT DOSE: 1292.78 mGy.cm FINDINGS: Lung bases: The heart is normal in size and without pericardial effusion. There is trace right pleura l effusion and bibasilar atelectasis. There is a tiny hiatal hernia. Liver: The unenhanced liver is normal in size, contour, and attenuation. There is no intrahepatic britney iary ductal dilatation. Gallbladder: Gallstones are noted. There is no CT evidence of acute cholecystitis. Spleen: The spleen is enlarged measuring 16.6 cm in length. Pancreas: Unremarkable. Adrenal glands: Unremarkable. Kidneys: The unenhanced kidneys are normal in size and without hydronephrosis. There is residual excr eted IV contrast within the collecting systems and ureters. This degrades assessment for renal calcul i. Renal sinus cysts are noted on the left. Abdominal vasculature: The abdominal aorta is normal in course and caliber. Bowel: There are scattered colonic diverticula without CT evidence of acute diverticulitis. No bowel obstruction is seen. Mild fecal retention is noted throughout the colon. The appendix is not visuali zed. Peritoneum/retroperitoneum: Again seen is a large intramuscular hemorrhage within the right psoas. Th is has not significantly changed from yesterday, measuring up to 7.8 cm in maximum axial dimension. T here is associated retroperitoneal extension. This has minimally increased from yesterday, blood pres sures identified within both paracolic gutters. There is trace intraperitoneal extension, with free f luid seen in the pelvis. No intraperitoneal free air is identified. There is a fat-containing umbilic al hernia. Lymphadenopathy: None. Pelvic viscera: The prostate gland is diminutive and heterogeneous. The bladder is partially decompre ssed around a Balbuena catheter. Intraluminal contrast is noted. The bladder wall appears thickened and trabeculated suggesting chronic outlet obstruction. Skeletal structures: The skeletal structures are osteopenic. There is mild lumbosacral spondylosis. N o lytic or blastic lesions are seen. Soft tissues: Heterogeneous appearance of the right lateral abdominal wall musculature with associate d subcutaneous soft tissue edema and right lateral hip musculature is again noted IMPRESSION: 1. A large intramuscular hemorrhage of the right psoas muscle has not appreciably changed from yester day. 2. Retroperitoneal extension of hemorrhage has minimally increased from yesterday. 3. There is likely trace intraperitoneal extension with minimal fluid in the pelvis. 4. Trace right pleural effusion. 5. There is unchanged appearance of a heterogeneous abnormality/inflammatory process within the right lateral abdominal wall and hip musculature and soft tissues. 6. Splenomegaly. 7. Cholelithiasis. 8. Additional findings as above. ACT 112: Negative or not required by law. Electronically signed by: Juan F Sampson M.D. 09/24/2020 9:30 AM
[2020-09-24 10:27] LABS: Hematocrit (blood only) 29.8 % (42-52); Hemoglobin 9.3 g/dL (14.0-18.0)
[2020-09-24] MEDS: FUROSEMIDE 40 MG TAB PO SCH (10:46)
[2020-09-24] MEDS: DOCUSATE SODIUM 100 MG CAP PO SCH ×2 (10:48→21:19)
[2020-09-24] MEDS: PYRIDOXINE HCL 50 MG TAB PO SCH (10:48)
[2020-09-24] MEDS: ONDANSETRON INJ 2 MG/ML 2 ML VIAL IV PRN (12:42)
--- NOTE | 2020-09-24 13:22 | Surgery Progress Note ---
Date of Service September 24, 2020 Assessment & Plan (1) Hematoma of right iliopsoas muscle: Plan: H/H stable vitals stable con't H/H s repeat CT likely Saturday Present on Admission?: Yes Admission and Anticipated Discharge Date Admission Date: September 23, 2020 Subjective still with some pain eating OK vitals stable Review of Systems Constitutional: no fever and no chills Respiratory: no dyspnea Cardiovascular: no chest pain Gastrointestinal: + abdominal pain and + nausea; no vomiting Genitourinary: no dysuria Physical Exam Constitutional: well developed and well nourished Eyes: PERRL, conjunctivae normal, anicteric sclerae Neck: trachea midline Respiratory: normal respiratory effort, lungs clear to auscultation Cardiovascular: RRR, no murmur, no edema Gastrointestinal (Abdomen): Inspection/Auscultation: abdomen normal to inspection, + abdomen distended and normal bowel sounds Percussion/Palpation: + abdomen tender and abdomen soft Musculoskeletal: Head/Neck/Chest: normocephalic and head atraumatic Skin: no rashes, warm and dry Results & Data ([facility]) Vital Signs (Past 12 Hours) Vital Signs Temp Pulse Pulse Pulse Resp BP BP 09/24/20 11:43 37.0 C 92 H 18 108/70 09/24/20 10:46 94 H 116/66 09/24/20 08:00 37.0 C 101 H 18 93/55 L 09/24/20 05:22 97 H 112/63 09/24/20 04:00 37.2 C 93 H 18 93/52 L Pulse Ox 09/24/20 11:43 95 09/24/20 10:46 09/24/20 08:00 92 09/24/20 05:22 09/24/20 04:00 95 (1) Hematoma of right iliopsoas muscle Encounter type: initial encounter Qualified Code(s): S70.11XA - Contusion of right thigh, initial encounter
--- NOTE | 2020-09-24 18:43 | Hospitalist Progress Note ---
Date of Service September 24, 2020 Assessment & Plan (1) Retroperitoneal hemorrhage: (2) Hematoma of right iliopsoas muscle: (3) Abdominal pain: Plan: Present no admission with cramping abdominal pain CT abd/pelvis showed CT abdomen pelvis was obtained showing Interval development of a moderate right iliopsoas/retroperitoneal hematoma. Slight improvement in the heterogeneous abnormality/inflammatory process within the right lateral abdominal wall and right hip musculature. ER physician spoke to general surgeon at [facility] who recommended that patient did not require transfer to at this time. Hgb dropped to 8.9 today, then increased to 9.[address] abd/pelvis today showe large intramuscular hemorrhage of the right psoas muscle has not appreciably changed from yesterday.Retroperitoneal extension of hemorrhage has minimally increased from yesterday. Surgery on board Case discussed with surgery today recommended no acute surgical intervention required at this time. Recommended to monitor H/H and repeat CT abd/pelvis on Saturday as per ortho If Hgb drops and retroperitoneal hematoma increases in size, will need to transfer to tertiary care for IR intervention for possible embolization Continue monitor closely Will advance diet to full liquid Constipation Bowel regimen Ependymoma: Chronic paraplegia: Spastic hemiparesis: Status post surgical resection and XRT in the Continue tizanidine at bedtime Continue f/u with neurosurgery Anemia: Anemia of acute blood loss H/O iron deficiency Hgb: 11 on admission, Baseline ~10 Hgb dropped to 8.9 today, then increased to 9.3 Monitor H&H GERD: continue PPI DVT prophylaxis: SCDs Full Code Admission and Anticipated Discharge Date Admission Date: September 23, 2020 Subjective Pt was seen and examined for follow up of abdominal pain Lying in bed with no distress Pt said that he continues to have abdominal spasm and pain with deep breathing Denies any chest pain, palpitation, dizziness and SOB Physical Exam Physical Exam: General- No acute distress Head- atraumatic Eyes- PERRL, EOMI, ENT- oropharynx clear Neck- supple, no JVD Lungs- clear to auscultation Heart- regular rhythm; no murmur Abdomen- normal bowel sounds, +tender Extremities- no calf tenderness, +edema Neuro- alert, oriented x 3; PERRL, EOMI; Lower extremities weakness due to paraplegia Skin- warm & dry Results & Data Results & Data ([facility]) Vital Signs (Past 12 Hours) Vital Signs Temp Pulse Pulse Resp BP BP Pulse Ox 07/31/21 16:04 37.3 C 92 H 18 104/62 96 09/24/20 11:43 37.0 C 92 H 18 108/70 95 09/24/20 10:46 94 H 116/66 09/24/20 08:00 37.0 C 101 H 18 93/55 L 92 (1) Hematoma of right iliopsoas muscle Encounter type: initial encounter Qualified Code(s): S70.11XA - Contusion of right thigh, initial encounter (2) Abdominal pain Abdominal location: left lower quadrant Qualified Code(s): R10.32 - Left lower quadrant pain
[2020-09-24 19:59] LABS: Hematocrit (blood only) 28.7 % (42-52); Hemoglobin 8.8 g/dL (14.0-18.0)
[2020-09-24] MEDS: tiZANidine HCL 4 MG TABLET PO SCH (21:19)
[2020-09-24] MEDS: PANTOprazole 40 MG TAB PO SCH (21:19)
[2020-09-24] MEDS: TAMSULOSIN HCL 0.4 MG CAP PO SCH (21:19)
[2020-09-24] MEDS: oxyCODONE HCL IR 5 MG TAB (IMMEDIATE RELEASE) PO PRN (22:52)
[2020-09-25] MEDS ORDERED: OPTIRAY 320 100ml IV ONE (00:07)
--- NOTE | 2020-09-25 00:35 | CT Scan Report ---
CT SCAN OF THE ABDOMEN AND PELVIS WITH IV CONTRAST CLINICAL HISTORY: Left lower quadrant abdominal pain. Retroperitoneal hematoma. COMPARISON STUDY: Abdominal CT performed earlier the same day 09/24/2020. TECHNIQUE: Following the IV administration of 93 cc of Optiray 320, CT scan of the abdomen and pelvis is performed from the lung bases to the proximal femora. Images are reviewed in the axial, sagittal, and coronal planes. IV contrast was without complication. A dose lowering technique was utilized adh ering to the principles of ALARA. CT DOSE: 1016.81 mGycm FINDINGS: Lung bases: The heart is normal in size and without pericardial effusion. There is trace right pleura l effusion and bibasilar atelectasis. There is a tiny hiatal hernia. Liver: The contrast-enhanced liver is enlarged, measuring 21.7 cm in length. The liver is otherwise n ormal in contour and attenuation. There is no intrahepatic biliary ductal dilatation. The hepatic vei ns and portal veins are patent. Gallbladder: Gallstones are noted with no CT evidence of acute cholecystitis. Spleen: The spleen is enlarged measuring 16.6 cm in length. Pancreas: Unremarkable. Adrenal glands: Unremarkable. Kidneys: The contrast-enhanced kidneys are normal in size and without hydronephrosis. Renal sinus cys ts are noted on the left. The kidneys enhance symmetrically. Abdominal vasculature: The abdominal aorta is normal in course and caliber. Bowel: There are scattered colonic diverticula without CT evidence of acute diverticulitis. No bowel obstruction is seen. Mild fecal retention is noted throughout the colon. The appendix is not visuali zed. Peritoneum/retroperitoneum: Again seen is a large intramuscular hemorrhage within the right psoas. Th is has not significantly changed from today's earlier examination, measuring up to 7.8 cm in maximum axial dimension. No active extravasation is identified at the time of examination. There is associate d retroperitoneal extension. This is also unchanged from today's earlier examination. Blood products are identified within both paracolic gutters. There is trace intraperitoneal extension, with free flu id seen in the pelvis. No intraperitoneal free air is identified. There is a fat-containing umbilical hernia. Lymphadenopathy: None. Pelvic viscera: The prostate gland is diminutive and heterogeneous. The bladder is decompressed aroun d a Balbuena catheter. Pericystic infiltration and fluid are identified. Skeletal structures: The skeletal structures are osteopenic. There is mild lumbosacral spondylosis. N o lytic or blastic lesions are seen. Soft tissues: Heterogeneous appearance of the right lateral abdominal wall musculature with associate d subcutaneous soft tissue edema and right lateral hip musculature is again noted. There is a trace r esidual crescentic fluid collection identified in the right hip musculature on image #[id number]. This measu res up to 1.7 cm. IMPRESSION: 1. A large intramuscular hemorrhage of the right psoas muscle has not appreciably changed from today' s earlier examination. 2. Retroperitoneal extension of hemorrhage has also not significantly changed from today's earlier st udy. 3. Again seen Is trace intraperitoneal extension with minimal fluid in the pelvis. 4. A trace right pleural effusion is unchanged. 5. The bladder is decompressed around a Balbuena catheter and appears circumferentially thick walled. Th ere is surrounding infiltration and fluid. Correlate with urinalysis. 6. There is unchanged appearance of a heterogeneous abnormality/inflammatory process within the right lateral abdominal wall and hip musculature and soft tissues. 7. Hepatosplenomegaly. 8. Cholelithiasis. 9. Additional findings as above. ACT 112: Negative or not required by law. Electronically signed by: Juan F Sampson M.D. 09/25/2020 12:33 AM
[2020-09-25] MEDS ORDERED: SODIUM CHLORIDE 0.9% 1000ML 1,000 ML IV ONE (01:20)
[2020-09-25 06:28] LABS: Hematocrit (blood only) 27.5 % (42-52); Hemoglobin 8.5 g/dL (14.0-18.0); Mean Corpuscular Hemoglobin 24.4 pg (25-34); Mean Corpuscular Hgb Conc 30.9 g/dL (32-36); Mean Corpuscular Volume 78.8 fL (80-100); Mean Platelet Volume 9.3 fL (7.4-10.4); Platelet Count 311 K/uL (130-400); RDW Coefficient of Variation 16.6 % (11.5-14.5); RDW Standard Deviation 47.8 fL (36.4-46.3); Red Blood Count 3.49 M/uL (4.7-6.1); White Blood Count 7.28 K/uL (4.8-10.8)
[2020-09-25 06:55] LABS: BUN Creatinine Ratio 35.2 (10-20); Calcium 8.6 mg/dl (8.5-10.1); Est GFR (Non-African American) 120.8 ml/min; Potassium 3.6 mmol/L (3.5-5.1)
[2020-09-25] MEDS: DOCUSATE SODIUM 100 MG CAP PO SCH ×2 (08:29→19:43)
[2020-09-25] MEDS: PYRIDOXINE HCL 50 MG TAB PO SCH (08:29)
[2020-09-25] MEDS ORDERED: POLYETHYLENE (MIRALAX) 17 GM PACK PO PRN (13:07)
--- NOTE | 2020-09-25 13:10 | Surgery Progress Note ---
Date of Service September 25, 2020 Assessment & Plan (1) Retroperitoneal hemorrhage: Plan: con't H/H's repeat CT scan tomorrow per primary team sanaz palomares Admission and Anticipated Discharge Date Admission Date: September 23, 2020 Subjective some nusea pain about the same constipated H/H relatively stable hemodynamically stable Review of Systems Constitutional: no fever, no chills and no anorexia Respiratory: no cough and no dyspnea Cardiovascular: no chest pain Gastrointestinal: + abdominal pain, + nausea and + constipation; no vomiting Genitourinary: no dysuria Musculoskeletal: no back pain and no neck pain Integumentary: no rash and no lesions Physical Exam Constitutional: well developed and well nourished Eyes: + anicteric sclerae ENMT: external ear and nose normal, oropharynx normal Neck: trachea midline Respiratory: normal respiratory effort, lungs clear to auscultation Cardiovascular: RRR, no murmur, no edema Gastrointestinal (Abdomen): Inspection/Auscultation: + abdomen distended and normal bowel sounds Percussion/Palpation: + abdomen tender and abdomen soft; no guarding and abdomen not rigid Musculoskeletal: Head/Neck/Chest: normocephalic and head atraumatic Skin: no rashes, warm and dry Results & Data ([facility]) Vital Signs (Past 12 Hours) Vital Signs Temp Pulse Pulse Resp BP Pulse Ox 09/25/20 12:00 36.8 C 94 H 18 144/71 H 93 09/25/20 11:02 85 09/25/20 08:00 36.8 C 88 18 95/54 L 95 09/25/20 04:00 37.1 C 86 18 107/62 93
[2020-09-25] MEDS: ONDANSETRON INJ 2 MG/ML 2 ML VIAL IV PRN (17:44)
[2020-09-25] MEDS: TAMSULOSIN HCL 0.4 MG CAP PO SCH (19:43)
[2020-09-25] MEDS: PANTOprazole 40 MG TAB PO SCH (19:43)
--- NOTE | 2020-09-25 21:12 | Hospitalist Progress Note ---
Date of Service September 25, 2020 Assessment & Plan (1) Retroperitoneal hemorrhage: (2) Hematoma of right iliopsoas muscle: (3) Abdominal pain: Plan: Present no admission with cramping abdominal pain CT abd/pelvis showed CT abdomen pelvis was obtained showing Interval development of a moderate right iliopsoas/retroperitoneal hematoma. Slight improvement in the heterogeneous abnormality/inflammatory process within the right lateral abdominal wall and right hip musculature. ER physician spoke to general surgeon at [facility] [place] who recommended that patient did not require transfer to at this time. Hgb dropped to 8.9, then increased to 9.3 then 8.[address] abd/pelvis today showe large intramuscular hemorrhage of the right psoas muscle has not appreciably changed from yesterday.Retroperitoneal extension of hemorrhage has minimally increased from yesterday. Surgery on board Case discussed with surgery today recommended no acute surgical intervention required at this time. Recommended to monitor H/H and repeat CT abd/pelvis on Saturday as per ortho If Hgb drops and retroperitoneal hematoma increases in size, will need to transfer to tertiary care for IR intervention for possible embolization Continue monitor closely Currently on Full liquid, will advanced diet as tolerated Constipation Bowel regimen Ependymoma: Chronic paraplegia: Spastic hemiparesis: Status post surgical resection and XRT in the Continue tizanidine at bedtime Continue f/u with neurosurgery Anemia: Anemia of acute blood loss H/O iron deficiency Hgb: 11 on admission, Baseline ~10 Hgb dropped to 8.9 today, then increased to 9.3, then dropped to 8.5 Monitor H&H GERD: continue PPI DVT prophylaxis: SCDs Full Code Disposition Possible discharge home tomorrow if stable Admission and Anticipated Discharge Date Admission Date: September 25, 2020 Subjective Pt was seen and examined for follow up of abdominal pain Lying in bed with no distress Pt said that pain improves He said that he had some nausea early this morning Denies any chest pain, palpitation, dizziness and SOB Physical Exam Physical Exam: General- No acute distress Head- atraumatic Eyes- PERRL, EOMI, ENT- oropharynx clear Neck- supple, no JVD Lungs- clear to auscultation Heart- regular rhythm; no murmur Abdomen- normal bowel sounds, +tender only with deep palpation Extremities- no calf tenderness, +edema Neuro- alert, oriented x 3; PERRL, EOMI; Lower extremities weakness due to paraplegia Skin- warm & dry Results & Data Results & Data ([facility]) Vital Signs (Past 12 Hours) Vital Signs Temp Pulse Pulse Pulse Resp BP Pulse Ox 09/25/20 20:00 37.0 C 66 18 102/69 95 09/25/20 15:44 84 09/25/20 14:45 37.1 C 85 18 101/51 L 96 09/25/20 12:00 36.8 C 94 H 18 144/71 H 93 09/25/20 11:02 85 (1) Hematoma of right iliopsoas muscle Encounter type: initial encounter Qualified Code(s): S70.11XA - Contusion of right thigh, initial encounter (2) Abdominal pain Abdominal location: left lower quadrant Qualified Code(s): R10.32 - Left lower quadrant pain
[2020-09-25 21:14] LABS: Hematocrit (blood only) 30.1 % (42-52); Hemoglobin 9.2 g/dL (14.0-18.0)
[2020-09-25] MEDS: oxyCODONE HCL IR 5 MG TAB (IMMEDIATE RELEASE) PO PRN (21:49)
[2020-09-25] MEDS: tiZANidine HCL 4 MG TABLET PO SCH (21:49)
[2020-09-26 07:08] LABS: Hematocrit (blood only) 28.9 % (42-52); Hemoglobin 8.8 g/dL (14.0-18.0); Mean Corpuscular Hemoglobin 24.4 pg (25-34); Mean Corpuscular Hgb Conc 30.4 g/dL (32-36); Mean Corpuscular Volume 80.1 fL (80-100); Mean Platelet Volume 9.4 fL (7.4-10.4); Platelet Count 351 K/uL (130-400); RDW Coefficient of Variation 16.6 % (11.5-14.5); RDW Standard Deviation 48.6 fL (36.4-46.3); Red Blood Count 3.61 M/uL (4.7-6.1); White Blood Count 7.36 K/uL (4.8-10.8)
[2020-09-26] MEDS: MAGNESIUM OXIDE 400 MG TAB PO SCH (09:04)
[2020-09-26] MEDS: PYRIDOXINE HCL 50 MG TAB PO SCH (09:04)
[2020-09-26] MEDS: DOCUSATE SODIUM 100 MG CAP PO SCH ×2 (09:04→20:34)
[2020-09-26] MEDS ORDERED: PROMETHAZINE HCL 12.5 MG in SODIUM CHLORIDE 0.9% 50 ML IV PRN (11:19)
--- NOTE | 2020-09-26 11:25 | Surgery Progress Note ---
Date of Service September 26, 2020 Assessment & Plan (1) Retroperitoneal hemorrhage: Plan: hemodynamically stable, vss abdomen is soft, tender in epigastrium with nausea after eating, History of PUD Plan: No acute surgical intervention required at this time repeating CT scan for further evaluation, if hematoma larger or concern for active bleed would require transfer for IR embolization Will add Phenergan IV prn nausea Start Miralax daily instead of prn monitor rash, will let medicine team know. Likely soap from sponge bath as patient said he is sensitive to soaps. Okay for full liquid diet advised to go slow Dr. Kate has seen and examined pt, agrees with above. Admission and Anticipated Discharge Date Admission Date: September 25, 2020 Subjective lying in bed with no distress having nausea and bloating after eating, feels tight in upper abdomen still having occasional abdominal spasms and pain small bowel movement yesterday no vomiting Physical Exam Constitutional: WD/WN, vitals as above Respiratory: normal respiratory effort; no respiratory distress and no labored breathing Gastrointestinal (Abdomen): Inspection/Auscultation: abdomen normal to inspection and normal bowel sounds (hypoactive); abdomen not distended Percussion/Palpation: + abdomen tender (epigastrium) and abdomen soft; no guarding and abdomen not rigid Skin: + rash (splotchy rash of the abdomen, back, thighes, and legs) Psychiatric: A+Ox3, euthymic affect Results & Data ([facility]) Vital Signs (Past 12 Hours) Vital Signs Temp Pulse Resp BP Pulse Ox 09/26/20 08:00 37.0 C 87 18 113/63 94 09/26/20 04:10 37.0 C 87 18 117/66 95 09/26/20 00:00 37.1 C 86 18 117/80 96 Laboratory Results 09/26/20 09/25/20 Range/Units 06:22 21:04 WBC 7.36 (4.8-10.8) K/uL RBC 3.61 L (4.7-6.1) M/uL Hgb 8.8 L 9.2 L (14.0-18.0) g/dL Hct 28.9 L 30.1 L (42-52) % MCV 80.1 (80-100) fL MCH 24.4 L (25-34) pg MCHC 30.4 L (32-36) g/dL RDW Std Deviation 48.6 H (36.4-46.3) fL RDW Coeff of Brendon 16.6 H (11.5-14.5) % Plt Count 351 (130-400) K/uL MPV 9.4 (7.4-10.4) fL
[2020-09-26] MEDS: POLYETHYLENE (MIRALAX) 17 GM PACK PO SCH (12:36)
[2020-09-26] MEDS ORDERED: bisacodyL 10 MG SUPP PR STA (13:47)
--- NOTE | 2020-09-26 14:09 | CT Scan Report ---
CT SCAN OF THE ABDOMEN AND PELVIS WITHOUT CONTRAST CLINICAL HISTORY: f/u Retroperitoneal hemorrhage COMPARISON STUDY: September 25, 2020 TECHNIQUE: CT scan of the abdomen and pelvis was performed from the lung bases to the proximal femurs . Images are reviewed in the axial, sagittal, and coronal planes. IV contrast was not administered fo r this examination. A dose lowering technique was utilized adhering to the principles of ALARA. CT DOSE: 1012.28 mGycm FINDINGS: Lower chest: Redemonstration of the small atelectasis or infiltrate at dependent portion of the right lower lobe and minimal right pleural effusion. Liver: The unenhanced liver is normal in size, contour, and attenuation. There is no intrahepatic britney iary ductal dilatation. Gallbladder: Is fluid-filled. Possible peripherally calcified gallstone is seen within its lumen. Spleen: Normal in size and attenuation. Pancreas: Unremarkable. Adrenal glands: Unremarkable. Kidneys: The unenhanced kidneys are normal in size without hydronephrosis. 9 mm hemorrhagic cyst is s een within the right renal cortex. No renal calculi are identified. Bowel: Bowel loops are nondilated. Appendix is not well seen. Peritoneum: There is no intraperitoneal free air or abdominal ascites. Vasculature: The abdominal aorta is normal in course and caliber. Adenopathy: None. Pelvic viscera: Urinary bladder is decompressed with Balbuena balloon within its lumen. Prostate gland i s slightly enlarged. Skeletal structures: Degenerative changes of the spine are again seen. There is stable right intramuscular hematoma of the right psoas muscle which shows heterogeneous att enuation. This lesion measures 7.4 cm in size cm, it was measured 7.8 cm during prior study when julien ured in similar fashion. Active extravasation of the blood cannot be assessed on this nonenhanced exa m. Previously seen retroperitoneal extension is again seen. Blood products are again identified within both paracolic gutters, right more than left. Stable mild intraperitoneal extension of the hemorrhage with small amount of fluid within pelvic pascual on is also unchanged since prior study. Redemonstration of the subcutaneous edema and heterogeneous appearance of the right lateral abdominal wall musculature with associated subcutaneous soft tissue edema. IMPRESSION: 1. Stable size of the large intramuscular hemorrhage of the right psoas muscle which extends to the peritoneal cavity is unchanged since prior study yesterday. No areas of new or enlarging hemorrhage, however evaluation is limited due to lack of IV contrast. 2. Stable appearance of the edema of the right lateral abdominal wall. 3. Stable small atelectasis/infiltrate at dependent portion of the right lower lobe and minimal righ t pleural effusion. 4. Cholelithiasis. No definite evidence of cholecystitis. 5. Small hemorrhagic cyst within the right renal cortex. 6. The rest of findings as above. ACT 112: Negative or not required by law. The above report was generated using voice recognition software. It may contain grammatical, syntax o r spelling errors. Electronically signed by: Mariel Krishnan DO 09/26/2020 2:08 PM
--- NOTE | 2020-09-26 17:23 | Hospitalist Progress Note ---
Date of Service September 26, 2020 Assessment & Plan (1) Retroperitoneal hemorrhage: (2) Hematoma of right iliopsoas muscle: (3) Abdominal pain: Plan: Present no admission with cramping abdominal pain CT abd/pelvis showed CT abdomen pelvis was obtained showing Interval development of a moderate right iliopsoas/retroperitoneal hematoma. Slight improvement in the heterogeneous abnormality/inflammatory process within the right lateral abdominal wall and right hip musculature. ER physician spoke to general surgeon at [facility] who recommended that patient did not require transfer to at this time. Hgb dropped to 8.9, then increased to 9.3 then 8.[address] abd/pelvis today showe large intramuscular hemorrhage of the right psoas muscle has not appreciably changed from yesterday.Retroperitoneal extension of hemorrhage has minimally increased from yesterday. Surgery on board repeat CT on 09/26 showed stable size of the large intramuscular hemorrhage of the right psoas muscle which extends to the peritoneal cavity is unchanged since prior study yesterday. Stable appearance of the edema of the right lateral abdominal wall. Small hemorrhagic cyst within the right renal cortex. No surgical intervention required at this time as per surgery Continue conservative management If Hgb drops and retroperitoneal hematoma increases in size, will need to transfer to tertiary care for IR intervention for possible embolization Continue monitor closely Continue Full liquid, will advanced diet as tolerated Nausea Phenergan prn Continue full liquid diet Constipation Bowel regimen Rash denies any itchiness Will start on topical steroid BID Ependymoma: Chronic paraplegia: Spastic hemiparesis: Status post surgical resection and XRT in the Continue tizanidine at bedtime Continue f/u with neurosurgery Anemia: Anemia of acute blood loss H/O iron deficiency Hgb: 11 on admission, Baseline ~10 Hgb dropped to 8.9 today, then increased to 9.3, then dropped to 8.5 Monitor H&H GERD: continue PPI DVT prophylaxis: SCDs Full Code Disposition Possible discharge home tomorrow if stable Admission and Anticipated Discharge Date Admission Date: September 25, 2020 Subjective Pt was seen and examined for follow up of retroperitoneal hemorrhage Lying in bed with no distress Pt said that he continues to have have nausea after eating He said that his abdominal pain improves He does have a mostly in his abdomen He said that might be due to the soap because he is sensitive to soap Denies any chest pain, palpitation, dizziness and vomiting Physical Exam Physical Exam: General- No acute distress Head- atraumatic Eyes- PERRL, EOMI, ENT- oropharynx clear Neck- supple, no JVD Lungs- clear to auscultation Heart- regular rhythm; no murmur Abdomen- normal bowel sounds, +tender only with deep palpation Extremities- no calf tenderness, +edema Neuro- alert, oriented x 3; PERRL, EOMI; Lower extremities weakness due to paraplegia Skin- warm & dry, +rash Results & Data Results & Data ([facility]) Vital Signs (Past 12 Hours) Vital Signs Temp Pulse Resp BP Pulse Ox 09/26/20 15:00 36.7 C 88 18 93/50 L 98 09/26/20 12:00 36.8 C 90 20 114/69 97 09/26/20 08:00 37.0 C 87 18 113/63 94 (1) Hematoma of right iliopsoas muscle Encounter type: initial encounter Qualified Code(s): S70.11XA - Contusion of right thigh, initial encounter (2) Abdominal pain Abdominal location: left lower quadrant Qualified Code(s): R10.32 - Left lower quadrant pain
[2020-09-26] MEDS: ONDANSETRON INJ 2 MG/ML 2 ML VIAL IV PRN (17:28)
[2020-09-26] MEDS: TRIAMCINOLONE ACET 0.025% CR 15 GM TUBE EXT SCH (20:34)
[2020-09-26] MEDS: tiZANidine HCL 4 MG TABLET PO SCH (20:34)
[2020-09-26] MEDS: PANTOprazole 40 MG TAB PO SCH (20:34)
[2020-09-26] MEDS: TAMSULOSIN HCL 0.4 MG CAP PO SCH (20:34)
[2020-09-26] MEDS: MoRPHine SULFATE 4 MG/ML 1 ML CARP\\VIAL IV PRN (22:41)
[2020-09-27] MEDS: ACETAMINOPHEN 325 MG TAB PO PRN ×2 (05:53→12:51)
[2020-09-27 06:31] LABS: Hematocrit (blood only) 28.7 % (42-52); Hemoglobin 8.9 g/dL (14.0-18.0); Mean Corpuscular Hemoglobin 24.7 pg (25-34); Mean Corpuscular Volume 79.5 fL (80-100); Mean Platelet Volume 9.3 fL (7.4-10.4); Nucleated RBC # (auto) 0.02 K/uL (0-0); Nucleated RBC % (auto) 0.3 %; Platelet Count 383 K/uL (130-400); RDW Coefficient of Variation 16.6 % (11.5-14.5); RDW Standard Deviation 48.7 fL (36.4-46.3); Red Blood Count 3.61 M/uL (4.7-6.1); White Blood Count 7.96 K/uL (4.8-10.8)
[2020-09-27] MEDS: PYRIDOXINE HCL 50 MG TAB PO SCH (08:53)
[2020-09-27] MEDS: DOCUSATE SODIUM 100 MG CAP PO SCH ×2 (08:53→20:51)
[2020-09-27] MEDS: TRIAMCINOLONE ACET 0.025% CR 15 GM TUBE EXT SCH ×2 (08:53→20:51)
[2020-09-27] MEDS: POLYETHYLENE (MIRALAX) 17 GM PACK PO SCH (08:53)
[2020-09-27] MEDS ORDERED: FUROSEMIDE 40 MG TAB PO ONE (09:12)
--- NOTE | 2020-09-27 10:28 | Surgery Progress Note ---
Date of Service September 27, 2020 Assessment & Plan (1) Retroperitoneal hemorrhage: Plan: hemodynamically stable hemoglobin stable at 8.9 today (8.8 yesterday) abdomen is soft, tender in epigastrium/LUQ with nausea after eating, History of PUD Plan: No acute surgical intervention required at this time as hemoglobin stable and hematoma stable on repeat CT scan no further ct scans recommended unless drop in hemoglobin Has formed stool in colon and rectum on CT scan images may need enema as he has had daily miralax, COlace BID and dulcolax suppository yesterday. Will discuss with medicine team (2) Abdominal pain: Plan: More in LUQ nausea postprandial patient feels constipated, small bowel movement two days ago plan as above Dr. Kate has seen and examined pt, agrees with above. Admission and Anticipated Discharge Date Admission Date: September 25, 2020 Subjective still having the left upper abdominal pain now going to his back still not passing much gas and dulcolax suppository did not help yesterday last bowel movements was two days ago and very small no right sided abdominal pian still having some nausea with eating feels like he is backed up and constipated. Physical Exam Constitutional: WD/WN, vitals as above no acute distress and not ill appearing Respiratory: normal respiratory effort; no respiratory distress and no labored breathing Gastrointestinal (Abdomen): Inspection/Auscultation: abdomen normal to inspection and + hypoactive bowel sounds; abdomen not distended Percussion/Palpation: + abdomen tender (left upper quadrants) and abdomen soft; no guarding and abdomen not rigid Results & Data ([facility]) Vital Signs (Past 12 Hours) Vital Signs Temp Pulse Pulse Resp BP Pulse Ox 09/27/20 07:46 36.6 C 87 18 113/64 94 09/27/20 07:20 82 09/27/20 02:56 36.9 C 87 18 111/68 96 09/27/20 00:05 86 09/26/20 22:50 37.0 C 95 H 18 109/67 97 Laboratory Results 09/27/20 Range/Units 05:42 WBC 7.96 (4.8-10.8) K/uL RBC 3.61 L (4.7-6.1) M/uL Hgb 8.9 L (14.0-18.0) g/dL Hct 28.7 L (42-52) % MCV 79.5 L (80-100) fL MCH 24.7 L (25-34) pg MCHC 31.0 L (32-36) g/dL RDW Std Deviation 48.7 H (36.4-46.3) fL RDW Coeff of Rbendon 16.6 H (11.5-14.5) % Plt Count 383 (130-400) K/uL MPV 9.3 (7.4-10.4) fL Absolute Nucleated RBC 0.02 H (0-0) K/uL Nucleated RBC % (auto) 0.3 % (1) Abdominal pain Abdominal location: left lower quadrant Qualified Code(s): R10.32 - Left lower quadrant pain
[2020-09-27] MEDS ORDERED: SOD PHOSPHATE/SOD BIPHOSPHATE ENEMA 132 ML BTL PR ONE (11:30)
--- NOTE | 2020-09-27 17:43 | Hospitalist Progress Note ---
Date of Service September 27, 2020 Assessment & Plan (1) Retroperitoneal hemorrhage: (2) Hematoma of right iliopsoas muscle: (3) Abdominal pain: Plan: Present no admission with cramping abdominal pain CT abd/pelvis showed CT abdomen pelvis was obtained showing Interval development of a moderate right iliopsoas/retroperitoneal hematoma. Slight improvement in the heterogeneous abnormality/inflammatory process within the right lateral abdominal wall and right hip musculature. ER physician spoke to general surgeon at [facility] [place] who recommended that patient did not require transfer to at this time. Hgb dropped to 8.9, then increased to 9.3 then 8.[address] abd/pelvis today showe large intramuscular hemorrhage of the right psoas muscle has not appreciably changed from yesterday.Retroperitoneal extension of hemorrhage has minimally increased from yesterday. Surgery on board repeat CT on 09/26 showed stable size of the large intramuscular hemorrhage of the right psoas muscle which extends to the peritoneal cavity is unchanged since prior study yesterday. Stable appearance of the edema of the right lateral abdominal wall. Small hemorrhagic cyst within the right renal cortex. No surgical intervention required at this time as per surgery Continue conservative management If Hgb drops and retroperitoneal hematoma increases in size, will need to transfer to tertiary care for IR intervention for possible embolization Continue monitor closely Continue Full liquid, will advanced diet as tolerated Nausea Phenergan prn Continue full liquid diet Constipation Bowel regimen Will try an enema Rash denies any itchiness on topical steroid BID Ependymoma: Chronic paraplegia: Spastic hemiparesis: Status post surgical resection and XRT in the Continue tizanidine at bedtime Continue f/u with neurosurgery Anemia: Anemia of acute blood loss H/O iron deficiency Hgb: 11 on admission, Baseline ~10 Hgb dropped to 8.9 today, then increased to 9.3, then dropped to 8.5 Monitor H&H GERD: continue PPI DVT prophylaxis: SCDs Full Code Disposition Possible discharge home tomorrow if stable Admission and Anticipated Discharge Date Admission Date: September 25, 2020 Subjective Pt was seen and examined for follow up of abdominal pain Lying in bed with no acute distress Pt said that he continues to have nausea and vomiting He has not have a bowel movement yet at bedside and provided with update Physical Exam Physical Exam: General- No acute distress Head- atraumatic Eyes- PERRL, EOMI, ENT- oropharynx clear Neck- supple, no JVD Lungs- clear to auscultation Heart- regular rhythm; no murmur Abdomen- normal bowel sounds, +tender only with deep palpation Extremities- no calf tenderness, +edema Neuro- alert, oriented x 3; PERRL, EOMI; Lower extremities weakness due to paraplegia Skin- warm & dry, +rash Results & Data Results & Data ([facility]) Vital Signs (Past 12 Hours) Vital Signs Temp Pulse Pulse Resp BP Pulse Ox 09/27/20 16:48 83 09/27/20 15:24 37 C 83 18 132/51 L 99 09/27/20 12:00 36.7 C 85 18 107/56 L 98 09/27/20 07:46 36.6 C 87 18 113/64 94 09/27/20 07:20 82 (1) Hematoma of right iliopsoas muscle Encounter type: initial encounter Qualified Code(s): S70.11XA - Contusion of right thigh, initial encounter (2) Abdominal pain Abdominal location: left lower quadrant Qualified Code(s): R10.32 - Left lower quadrant pain
[2020-09-27] MEDS: tiZANidine HCL 4 MG TABLET PO SCH (20:50)
[2020-09-27] MEDS: TAMSULOSIN HCL 0.4 MG CAP PO SCH (20:51)
[2020-09-27] MEDS: PANTOprazole 40 MG TAB PO SCH (20:51)
[2020-09-27] MEDS: MoRPHine SULFATE 4 MG/ML 1 ML CARP\\VIAL IV PRN (22:22)
[2020-09-28] MEDS: MoRPHine SULFATE 4 MG/ML 1 ML CARP\\VIAL IV PRN (04:39)
[2020-09-28] MEDS: TRIAMCINOLONE ACET 0.025% CR 15 GM TUBE EXT SCH ×2 (08:29→21:57)
[2020-09-28] MEDS: POLYETHYLENE (MIRALAX) 17 GM PACK PO SCH (08:30)
[2020-09-28] MEDS: PYRIDOXINE HCL 50 MG TAB PO SCH (08:30)
[2020-09-28] MEDS: DOCUSATE SODIUM 100 MG CAP PO SCH ×2 (08:30→20:58)
[2020-09-28] MEDS: MAGNESIUM OXIDE 400 MG TAB PO SCH (08:30)
[2020-09-28] MEDS: FUROSEMIDE 40 MG TAB PO SCH (09:20)
--- NOTE | 2020-09-28 09:52 | Surgery Progress Note ---
Date of Service September 28, 2020 Assessment & Plan (1) Retroperitoneal hemorrhage: Plan: hemodynamically stable hemoglobin stable at 8.7 today (8.9 yesterday) abdomen is soft, nontender today Plan: No acute surgical intervention required at this time as hemoglobin stable and hematoma stable on repeat CT scan no further ct scans recommended unless drop in hemoglobin Informed patient that this could take months to completely resolve. (2) Abdominal pain: Plan: More in epigastrium and LUQ nausea postprandial with bloating, no vomiting History of PUD, no heatburn Consider GI consult given history of PUD as well as upper GI symptoms. Do not feel it is related to the right iliopsoas hematoma (3) Constipation: Plan: Have tried daily Miralax, BID Colace, and two enemas yesterday without significant bowel movements CT scan showing stool in rectum, may need manual disimpaction GI consult Should be on bowel regimen at home Discussed patient with Dr. Kate who agrees with above. Admission and Anticipated Discharge Date Admission Date: September 25, 2020 Subjective not feeling well today, feeling worse than yesterday in regards to upper abdominal pain under breast bone and to left side of abdomen. Still nauseated with eating, only drank juice this morning. Feels like he has to belch but cannot. Had two enemas yesterday and per nurse he still has not had a decent bowel movement. He is getting daily miralax as well as BID colace. History of PUD , last scoped maybe a year ago denies heartburn or reflux No right lower or right sided abdominal pain Physical Exam Constitutional: well developed and well nourished; no acute distress and not ill appearing Respiratory: normal respiratory effort; no respiratory distress and no labored breathing Gastrointestinal (Abdomen): Inspection/Auscultation: abdomen normal to inspection; abdomen not distended and + abnormal bowel sounds Percussion/Palpation: abdomen soft; abdomen nontender, no guarding and abdomen not rigid Psychiatric: Orientation: alert and oriented x 3 Results & Data ([facility]) Vital Signs (Past 12 Hours) Vital Signs Temp Pulse Pulse Resp BP BP Pulse Ox 09/28/20 07:57 36.8 C 87 20 99/58 L 95 09/28/20 07:49 91 H 09/28/20 03:22 36.7 C 95 H 18 95/49 L 93 09/28/20 00:51 85 09/27/20 23:00 37.0 C 90 18 117/54 L 96 Laboratory Results 09/28/20 09/28/20 Range/Units 09:35 09:35 WBC 7.03 (4.8-10.8) K/uL RBC 3.62 L (4.7-6.1) M/uL Hgb 8.7 L (14.0-18.0) g/dL Hct 28.7 L (42-52) % MCV 79.3 L (80-100) fL MCH 24.0 L (25-34) pg MCHC 30.3 L (32-36) g/dL RDW Std Deviation 48.2 H (36.4-46.3) fL RDW Coeff of Brendon 16.5 H (11.5-14.5) % Plt Count 358 (130-400) K/uL MPV 8.9 (7.4-10.4) fL Immature Gran % (Auto) 1.0 % Neut % (Auto) 74.4 % Lymph % (Auto) 13.5 % [place] % (Auto) 8.5 % Eos % (Auto) 2.3 % Baso % (Auto) 0.3 % Neut # (Auto) 5.23 (1.4-6.5) K/uL Lymph # (Auto) 0.95 L (1.2-3.4) K/uL [place] # (Auto) 0.60 H (0.11-0.59) K/uL Eos # (Auto) 0.16 (0-0.5) K/uL Baso # (Auto) 0.02 (0-0.2) K/uL Immature Gran # (Auto) 0.07 H (0.00-0.02) K/uL Absolute Nucleated RBC 0.03 H (0-0) K/uL Nucleated RBC % (auto) 0.5 % Sodium 135 L (136-145) mmol/L Potassium 4.1 (3.5-5.1) mmol/L Chloride 101 (98-107) mmol/L Carbon Dioxide 30 (21-32) mmol/L Anion Gap 4.0 (3-11) BUN 11 (7-18) mg/dl Creatinine 0.54 L (0.6-1.4) mg/dl Est Cr Clr Drug Dosing 196.8 ml/min Est GFR ( Amer) 138.9 ml/min Est GFR (Non-Af Amer) 119.9 ml/min BUN/Creatinine Ratio 19.5 (10-20) Glucose 115 H (70-99) mg/dl Calcium 9.0 (8.5-10.1) mg/dl (1) Abdominal pain Abdominal location: left lower quadrant Qualified Code(s): R10.32 - Left lower quadrant pain
[2020-09-28 09:59] LABS: Basophils # (auto) 0.02 K/uL (0-0.2); Basophils % (auto) 0.3 %; Eosinophils # (auto) 0.16 K/uL (0-0.5); Eosinophils % (auto) 2.3 %; Hematocrit (blood only) 28.7 % (42-52); Hemoglobin 8.7 g/dL (14.0-18.0); Immature Granulocytes # (auto) 0.07 K/uL (0.00-0.02); Lymphocytes # (auto) 0.95 K/uL (1.2-3.4); Lymphocytes % (auto) 13.5 %; Mean Corpuscular Hgb Conc 30.3 g/dL (32-36); Mean Corpuscular Volume 79.3 fL (80-100); Mean Platelet Volume 8.9 fL (7.4-10.4); Monocytes % (auto) 8.5 %; Neutrophils # (auto) 5.23 K/uL (1.4-6.5); Neutrophils % (auto) 74.4 %; Nucleated RBC # (auto) 0.03 K/uL (0-0); Nucleated RBC % (auto) 0.5 %; Platelet Count 358 K/uL (130-400); RDW Coefficient of Variation 16.5 % (11.5-14.5); RDW Standard Deviation 48.2 fL (36.4-46.3); Red Blood Count 3.62 M/uL (4.7-6.1); White Blood Count 7.03 K/uL (4.8-10.8)
--- NOTE | 2020-09-28 10:10 | Gastrointestinal Consultation ---
Date of Consultation September 28, 2020 Assessment & Plan (1) Constipation: 55 year old medically complex male admitted w/ pain, constipation, CT w/ large intramuscular hemorrhage of the right psoas muscle has not appreciably changed from yesterday.Retroperitoneal extension of hemorrhage has minimally increased but HGB stable. He is having fullness, bloating and nausea post-prandial w/o vomiting and constipation. - KUB for stool burden - If constipation w/o any worrisome findings - tap water enema every 6 hours for 48 hours - After his bowels start moving - colace 100 mg twice daily - miralax 1 capful twice daily - Can titrated miralax to BMs 1-2 times daily - In regards to his nausea, fullness no acute indication for upper endoscopy perhaps some of his discomfort is related to retroperitoneal hemorrhage (2) Retroperitoneal hemorrhage: Supervising Physician Co-Signing Physician Notes Patient was seen and examined with PROSPER Ceballos whose nte reflects our findings and plan. Patient with complicated history. Hematoma of unknown origin. Recent adm to [facility]. Now with nausea and abd pain which may be related to large hematoma. Does have a history of ulcer in the past. Constipation likey contributing to his abd discomfort and nausea. Would like to address the constipation and if symptoms persist after that, can consider endoscopic evaluation. Mgt and w/u of the hematoma per primary service. 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 At that time, was transferred to [place] for IR intervention. Physician at [facility] did not think he had infection and IR intervention was not performed. Came to ED for evaluation of abdominal pain, nausea. Repeat CT scan showing right iliopsoas/retroperitoneal hematoma. He was seen by surgery, HGB stable and GI evaluation was recommend. Pt notes intermittent epigastric and LUQ pain post- prandial. Onset was two weeks ago. Fullness, bloating. Worse after PO. Associated with nausea but has not vomiting. Some GERD. Notes he has been constipated, last BM 09/24. He had enema x 2 and colace/miralax/prune juice last evening without any output. This AM bowel sounds are soft. CTAP 2020: Stable size of the large intramuscular hemorrhage of the right psoas muscle which extends to the peritoneal cavity is unchanged since prior study yesterday. No areas of new or enlarging hemorrhage, however evaluation is limited due to lack of IV contrast.Stable appearance of the edema of the right lateral abdominal wall.Stable small atelectasis/infiltrate at dependent portion of the right lower lobe and minimal right pleural effusion. Cholelithiasis. No definite evidence of cholecystitis.Small hemorrhagic cyst within the right renal cortex. The rest of findings as above. EGD 2020: Z-line regular, 40 cm from the incisors. - No endoscopic esophageal abnormality to explain patient's dysphagia. Esophagus dilated. Dilated. - Non-bleeding gastric ulcers with no stigmata of bleeding. Biopsied. - Scar in the prepyloric region of the stomach. Biopsied. - Normal duodenal bulb and second portion of the duodenum. Biopsied. Allergies Allergy/AdvReac Type Severity Reaction Status Date / Time vancomycin Allergy Severe Rash Verified 09/23/20 16:42 amantadine AdvReac Severe CHEST Verified 09/23/20 21:48 PAIN, ANXIETY Home Medications Medication Instructions Recorded Confirmed Type ascorbic acid (vitamin C) 1,000 mg 1 g PO QAM 07/09/18 09/23/20 History tablet (Vitamin C) magnesium oxide 400 mg PO 3XWK 07/09/18 09/23/20 History pyridoxine (vitamin B6) 100 mg 100 mg PO QAM 07/09/18 09/23/20 History tablet tizanidine 4 mg tablet 8 mg PO HS 07/09/18 09/23/20 History omeprazole 40 mg capsule,delayed 40 mg PO QPM 08/18/18 09/23/20 History release tamsulosin 0.4 mg capsule 0.4 mg PO HS 08/18/18 09/23/20 History acetaminophen 325 mg capsule 650 mg PO Q6H PRN 09/18/18 09/23/20 History (Tylenol) diphenhydramine 25 2 tab PO HS 09/11/20 09/23/20 History mg-acetaminophen 500 mg tablet (Tylenol PM Extra Strength) furosemide 40 mg tablet 40 mg PO DAILY 09/23/20 09/23/20 History Patient History Medical History Anemia iron deficiency Chronic neck pain Ependymoma GERD (gastroesophageal reflux disease) 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 History of gastric ulcer Left arm numbness chronic s/p left arm surgery Spastic hemiparesis 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 (no further details)- paralyzed from the chest down initially which significantly improved with (able to walk with crunches) with therapy, increased LE weakness 2007 and now patient wheelchair bound felt 2/2 nerve damage Surgical History H/O bursectomy left elbow H/O cervical spine surgery 1990 (benign cystectomy) + scar tissue removal H/O eye surgery foreign body (metal) removal from left eye History of esophagogastroduodenoscopy (EGD) EGD: 07/16/18: MAC sedation at [facility] Family History Father Hypertension Other No family history of adverse response to anesthesia Social History Smoking Status: Never smoker Second Hand Exposure: No; Hx Alcohol Use: No Hx Substance Use: No Preferred Language: Kyrgyz Communication Ability: Effective Supervisor [employer] Required: No Beliefs That Will Affect Care: None Current Living Situation: Spouse Current Living Situation Comment: Lives with and daughter and 1 granddaughter Other Information That Helps Us Care for You: No Feels Safe at Home: Yes Safety Concerns: Feels Safe At This Time Assistive Devices: Wheelchair Review of Systems Review of Systems: All systems reviewed & are unremarkable except as noted in HPI & below Physical Exam Constitutional: WD/WN, vitals as above Respiratory: normal respiratory effort, lungs clear to auscultation Gastrointestinal (Abdomen): Inspection/Auscultation: + hypoactive bowel sounds Percussion/Palpation: + abdomen tender and abdomen soft Skin: no rashes, warm and dry Results & Data ([facility]) Vital Signs (Past 12 Hours) Vital Signs Temp Pulse Pulse Resp BP BP Pulse Ox 08/04/21 07:57 36.8 C 87 20 99/58 L 95 09/28/20 07:49 91 H 09/28/20 03:22 36.7 C 95 H 18 95/49 L 93 09/28/20 00:51 85 09/27/20 23:00 37.0 C 90 18 117/54 L 96
[2020-09-28 10:28] LABS: BUN Creatinine Ratio 19.5 (10-20); Creatinine Clr Calc Pharmacy 196.8 ml/min; Est GFR (African American) 138.9 ml/min; Est GFR (Non-African American) 119.9 ml/min; Potassium 4.1 mmol/L (3.5-5.1)
--- NOTE | 2020-09-28 14:35 | Hospitalist Progress Note ---
Date of Service September 28, 2020 Assessment & Plan (1) Retroperitoneal hemorrhage: (2) Hematoma of right iliopsoas muscle: (3) Abdominal pain: Plan: per Dr. Tellez's notes: Present no admission with cramping abdominal pain CT abd/pelvis showed CT abdomen pelvis was obtained showing Interval development of a moderate right iliopsoas/retroperitoneal hematoma. Slight improvement in the heterogeneous abnormality/inflammatory process within the right lateral abdominal wall and right hip musculature. ER physician spoke to general surgeon at [facility] who recommended that patient did not require transfer to at this time. Hgb dropped to 8.9, then increased to 9.3 then 8.[address] abd/pelvis today showe large intramuscular hemorrhage of the right psoas muscle has not appreciably changed from yesterday.Retroperitoneal extension of hemorrhage has minimally increased from yesterday. Surgery on board repeat CT on 09/26 showed stable size of the large intramuscular hemorrhage of the right psoas muscle which extends to the peritoneal cavity is unchanged since prior study yesterday. Stable appearance of the edema of the right lateral abdominal wall. Small hemorrhagic cyst within the right renal cortex. No surgical intervention required at this time as per surgery Continue conservative management If Hgb drops and retroperitoneal hematoma increases in size, will need to transfer to tertiary care for IR intervention for possible embolization Continue monitor closely Continue Full liquid, will advanced diet as tolerated 8/4 Hg stable at 8.7 main symptom is nausea and LLQ pain likely secondary to Constipation KUB: colonic dilatation noted, official reading pending GI consulted may need tap water enema q6h Rash denies any itchiness on topical steroid BID -- resolved Ependymoma: Chronic paraplegia: Spastic hemiparesis: Status post surgical resection and XRT in the Continue tizanidine at bedtime Continue f/u with neurosurgery Anemia: Anemia of acute blood loss H/O iron deficiency Hgb: 11 on admission, Baseline ~10 -- Hg seems to be stable at ~8 x few days -- monitor GERD: continue PPI DVT prophylaxis: SCDs in light of retroperitoneal hematoma Full Code Disposition possible d/c to Acute Rehab Admission and Anticipated Discharge Date Admission Date: September 25, 2020 Subjective ff up for retroperitoneal hematoma, etc seen resting in bed, not in distress states he has mild-moderate over the left lower quadrant region, associated with nausea no BMs x few days no flatus denies headache, dizziness, chest pain, palpitations no other symptoms Review of Systems Review of Systems: all noted and negative except for below Physical Exam Physical Exam: General- oriented x 3, not in distress, speaks in sentences with no effort or accessory muscle use Head- atraumatic Eyes- PERRL, EOMI, anicteric ENT- oropharynx clear Neck- supple, no JVD, no adenopathy, no thyromegaly; carotids +2/2, no bruits appreciated Lungs- clear to auscultation bilaterally, no rales/wheezes Heart- normal rate, regular rhythm; no murmur, no gallop, no rub appreciated Abdomen- hypoactive bowel sounds, minimally distended, soft, (+) mild tenderness LLQ Extremities- (+) mild lower ext edema, no calf tenderness; peripheral pulses intact Neuro- alert, oriented x 3; CN 2-12 grossly intact; motor 5/5 bilaterally;sensation 100% on all extremities; no other gross focal neurologic deficits Skin- warm & dry Results & Data Results & Data ([facility]) Vital Signs (Past 12 Hours) Vital Signs Temp Pulse Pulse Resp BP BP Pulse Ox 09/28/20 12:00 36.9 C 80 20 121/58 L 98 09/28/20 07:57 36.8 C 87 20 99/58 L 95 09/28/20 07:49 91 H 09/28/20 03:22 36.7 C 95 H 18 95/49 L 93 all noted and reviewed including below (1) Hematoma of right iliopsoas muscle Encounter type: initial encounter Qualified Code(s): S70.11XA - Contusion of right thigh, initial encounter (2) Abdominal pain Abdominal location: left lower quadrant Qualified Code(s): R10.32 - Left lower quadrant pain
--- NOTE | 2020-09-28 16:22 | XRay Report ---
XR KUB/Abdomen 1 view CLINICAL HISTORY: nausea, constipation, r/o obstruction COMPARISON STUDY: No previous studies for comparison. FINDINGS: Nondilated gas and stool-filled loops of bowel are seen throughout the abdomen There is no evidence of free intra-abdominal air, however please note that supine abdominal radiograp hy has limited ability for evaluation for the free intra-abdominal air. No abnormal calcifications are seen. Limited study due to motion artifact and rotation. IMPRESSION: 1. Nonobstructive bowel gas pattern. ACT 112: Negative or not required by law. The above report was generated using voice recognition software. It may contain grammatical, syntax o r spelling errors. Electronically signed by: Mariel Krishnan DO 09/28/2020 4:20 PM
[2020-09-28] MEDS: PANTOprazole 40 MG TAB PO SCH (20:58)
[2020-09-28] MEDS: TAMSULOSIN HCL 0.4 MG CAP PO SCH (20:59)
[2020-09-28] MEDS: oxyCODONE HCL IR 5 MG TAB (IMMEDIATE RELEASE) PO PRN (21:12)
[2020-09-28] MEDS: tiZANidine HCL 4 MG TABLET PO SCH (21:58)
[2020-09-29] MEDS: TRIAMCINOLONE ACET 0.025% CR 15 GM TUBE EXT SCH ×2 (08:25→21:20)
[2020-09-29] MEDS: PYRIDOXINE HCL 50 MG TAB PO SCH (08:25)
[2020-09-29] MEDS: DOCUSATE SODIUM 100 MG CAP PO SCH ×2 (08:25→21:21)
[2020-09-29] MEDS: POLYETHYLENE (MIRALAX) 17 GM PACK PO SCH (08:25)
[2020-09-29] MEDS: FUROSEMIDE 40 MG TAB PO SCH (08:25)
--- NOTE | 2020-09-29 08:45 | Gastroenterology Progress Note ---
Date of Service September 29, 2020 Assessment & Plan (1) Constipation: Plan: 55 year old medically complex male admitted w/ pain, constipation, CT w/ large intramuscular hemorrhage of the right psoas muscle has not appreciably changed from yesterday.Retroperitoneal extension of hemorrhage has minimally increased but HGB stable. He is having fullness, bloating and nausea post-prandial w/o vomiting and constipation symptoms started to improve after tap water enema. Would continue every 6 hours for 48 hours. Please start bowel regimen today. - If constipation w/o any worrisome findings - tap water enema every 6 hours for 48 hours - After his bowels start moving - colace 100 mg twice daily - miralax 1 capful twice daily - Can titrated miralax to BMs 1-2 times daily - Dulcolax PRN - In regards to his nausea, fullness no acute indication for upper endoscopy perhaps some of his discomfort is related to retroperitoneal hemorrhage Recall GI as needed. Thank you for allowing us to participate in the care of this patient. Please call with any acute changes, questions or concerns. Please see addendum below with additional recommendation from my supervising physician. (2) Retroperitoneal hemorrhage: Admission and Anticipated Discharge Date Admission Date: September 25, 2020 Supervising Physician Co-Signing Physician Notes I have seen and examined the patient with PROSPER Ceballos whose note reflects our findings and plan. Subjective KUB reviewed. Tap water enema started last evening Had two moderate sized BMs this AM No black or bloody stools Notes he is feeling better now that moving bowels less back and abd pain Tolerated breakfast w/o vomiting Review of Systems Review of Systems: All systems reviewed & are unremarkable except as noted in HPI & below Physical Exam Constitutional: WD/WN, vitals as above Respiratory: normal respiratory effort, lungs clear to auscultation Gastrointestinal (Abdomen): Inspection/Auscultation: + hypoactive bowel sounds Percussion/Palpation: + abdomen tender and abdomen soft Skin: no rashes, warm and dry Results & Data ([facility]) Vital Signs (Past 12 Hours) Vital Signs Temp Pulse Pulse Resp BP Pulse Ox 09/29/20 07:00 38.0 C H 89 20 101/54 L 93 09/29/20 03:39 37.3 C 88 18 111/53 L 96 09/29/20 01:26 89 09/28/20 23:58 36.9 C 81 18 98/61 L 94
[2020-09-29] MEDS ORDERED: PIPERACILL/TAZOBAC CONSULT ACTIVE PRN (09:44)
[2020-09-29] MEDS ORDERED: PIPERACILLIN/TAZOBACTAM 3.375 GM in DEXTROSE 5% 100 ML IV ONE (10:00)
--- NOTE | 2020-09-29 10:09 | XRay Report ---
XR chest 1V portable HISTORY: 55 years-old Male r/o aspiration acute shortness breath COMPARISON: CT abdomen and pelvis 09/26/2020, chest radiograph 09/11/2020 TECHNIQUE: Portable AP view of the chest FINDINGS: Cardiomediastinal and hilar silhouettes are within normal limits. No pneumothorax, pleural effusion, airspace consolidation or overt pulmonary edema. Degenerative changes of the shoulders and spine. IMPRESSION: No acute process. ACT 112: Negative or not required by law. The above report was generated using voice recognition software. It may contain grammatical, syntax o r spelling errors. Electronically signed by: Keenan Cobian M.D. 09/29/2020 10:08 AM
[2020-09-29 10:44] LABS: Basophils # (auto) 0.01 K/uL (0-0.2); Basophils % (auto) 0.1 %; Eosinophils # (auto) 0.05 K/uL (0-0.5); Eosinophils % (auto) 0.7 %; Hematocrit (blood only) 29.6 % (42-52); Hemoglobin 8.9 g/dL (14.0-18.0); Immature Granulocytes # (auto) 0.03 K/uL (0.00-0.02); Immature Granulocytes % (auto) 0.4 %; Lymphocytes # (auto) 0.77 K/uL (1.2-3.4); Lymphocytes % (auto) 10.7 %; Mean Corpuscular Hemoglobin 23.9 pg (25-34); Mean Corpuscular Volume 79.6 fL (80-100); Mean Platelet Volume 9.1 fL (7.4-10.4); Monocytes # (auto) 0.67 K/uL (0.11-0.59); Monocytes % (auto) 9.3 %; Neutrophils # (auto) 5.64 K/uL (1.4-6.5); Neutrophils % (auto) 78.8 %; Platelet Count 362 K/uL (130-400); RDW Coefficient of Variation 16.8 % (11.5-14.5); Red Blood Count 3.72 M/uL (4.7-6.1); White Blood Count 7.17 K/uL (4.8-10.8)
[2020-09-29 10:45] LABS: Mean Corpuscular Hgb Conc 30.1 g/dL (32-36)
[2020-09-29 10:58] LABS: Albumin Level 2.7 gm/dl (3.4-5.0); BUN Creatinine Ratio 21.4 (10-20); Calcium 8.5 mg/dl (8.5-10.1); Creatinine Clr Calc Pharmacy 174.5 ml/min; Est GFR (African American) 131.3 ml/min; Est GFR (Non-African American) 113.3 ml/min; Potassium 3.9 mmol/L (3.5-5.1)
[2020-09-29 11:01] LABS: Albumin Globulin Ratio 0.6 (0.9-2); Bilirubin,Total 0.5 mg/dl (0.2-1); Globulin 4.9 gm/dl (2.5-4.0); Total Protein 7.6 gm/dl (6.4-8.2)
[2020-09-29] MEDS ORDERED: OPTIRAY 320 100ml IV ONE (15:17)
[2020-09-29] MEDS: PIPERACILLIN/TAZOBACTAM 3.375 GM in DEXTROSE 5% 100 ML IV SCH ×2 (15:47→23:49)
--- NOTE | 2020-09-29 15:50 | CT Scan Report ---
CT SCAN OF THE ABDOMEN AND PELVIS WITH IV CONTRAST CLINICAL HISTORY: Left lower quadrant abdominal pain. Fever. Retroperitoneal hematoma. COMPARISON STUDY: Abdominal CT scans dated 09/26/2020, 09/25/2020, and 09/24/2020. TECHNIQUE: Following the IV administration of 94 cc of Optiray 320, CT scan of the abdomen and pelvis is performed from the lung bases to the proximal femora. Images are reviewed in the axial, sagittal, and coronal planes. IV contrast was without complication. A dose lowering technique was utilized adh ering to the principles of ALARA. CT DOSE: 873.06 mGy.cm FINDINGS: Lung bases: The heart is normal in size and without pericardial effusion. There is dependent atelecta sis. A trace right pleural effusion has almost completely resolved. A tiny hiatal hernia is noted. Liver: The contrast-enhanced liver is enlarged, measuring 21.7 cm in length. The liver is otherwise n ormal in contour and attenuation. There is no intrahepatic biliary ductal dilatation. The hepatic vei ns and portal veins are patent. Gallbladder: Gallstones are noted with no CT evidence of acute cholecystitis. Spleen: The spleen is enlarged measuring 16.6 cm in length. Pancreas: Unremarkable. Adrenal glands: Unremarkable. Kidneys: The contrast-enhanced kidneys are normal in size and without hydronephrosis. Renal sinus cys ts are noted on the left. The kidneys enhance symmetrically. Abdominal vasculature: The abdominal aorta is normal in course and caliber. Bowel: There are scattered colonic diverticula without CT evidence of acute diverticulitis. No bowel obstruction is seen. Mild fecal retention is noted throughout the colon. The appendix is normal as v isualized Peritoneum/retroperitoneum: Again seen is a large intramuscular hemorrhage within the right psoas. Th is has minimally decreased in size from 09/26/2020, measuring up to 7.6 cm in maximum axial dimension. No active extravasation is identified at the time of examination. There is right-sided retroperitonea l extension images are also unchanged to minimally decreased from previous. There is only trace blood within the left paracolic gutter on today's examination. Intraperitoneal extension appears to have r esolved. No intraperitoneal free air is identified. There is a fat-containing umbilical hernia. Lymphadenopathy: None. Pelvic viscera: The prostate gland is diminutive and heterogeneous. The bladder is decompressed aroun d a Balbuena catheter and appears thick walled. Pericystic infiltration is noted. Skeletal structures: The skeletal structures are osteopenic. There is mild lumbosacral spondylosis. N o lytic or blastic lesions are seen. Soft tissues: Heterogeneous appearance of the right lateral abdominal wall musculature musculature wi th associated subcutaneous soft tissue edema is again noted. There is a trace residual crescentic flu id collection identified in the right hip musculature on image #[id number]. IMPRESSION: 1. A large intramuscular hemorrhage of the right psoas muscle has minimally decreased in size from 09/26/2020. 2. Retroperitoneal extension of hemorrhage on the right is unchanged to minimally decreased from prev ious. Hemorrhage within the left paracolic gutter has almost completely resolved. 3. Intraperitoneal extension has almost completely resolved from previous. 4. The bladder is decompressed around a Balbuena catheter and appears circumferentially thick walled. Th ere is surrounding infiltration and correlation with urinalysis will required. 5. There is unchanged appearance of a nonspecific heterogeneous abnormality/inflammatory process with in the right lateral abdominal wall and hip musculature/overlying soft tissues. Clinical correlation will be required. 6. Hepatosplenomegaly. 7. Cholelithiasis. 8. Additional findings as above. ACT 112: Negative or not required by law. Electronically signed by: Juan F Sampson M.D. 09/29/2020 3:48 PM
[2020-09-29] MEDS: D5NSS + 20MEQ KCL 20 MEQ/1,000 ML BAG IV SCH (17:14)
[2020-09-29] MEDS: ONDANSETRON INJ 2 MG/ML 2 ML VIAL IV PRN (17:20)
--- NOTE | 2020-09-29 17:27 | Hospitalist Progress Note ---
Date of Service September 29, 2020 Assessment & Plan (1) Retroperitoneal hemorrhage: (2) Hematoma of right iliopsoas muscle: (3) Abdominal pain: Plan: per Dr. Tellez's notes: Present no admission with cramping abdominal pain CT abd/pelvis showed CT abdomen pelvis was obtained showing Interval development of a moderate right iliopsoas/retroperitoneal hematoma. Slight improvement in the heterogeneous abnormality/inflammatory process within the right lateral abdominal wall and right hip musculature. ER physician spoke to general surgeon at [facility] [place] who recommended that patient did not require transfer to at this time. Hgb dropped to 8.9, then increased to 9.3 then 8.[address] abd/pelvis today showed large intramuscular hemorrhage of the right psoas muscle has not appreciably changed from yesterday.Retroperitoneal extension of hemorrhage has minimally increased from yesterday. Surgery on board repeat CT on 09/26 showed stable size of the large intramuscular hemorrhage of the right psoas muscle which extends to the peritoneal cavity is unchanged since prior study yesterday. Stable appearance of the edema of the right lateral abdominal wall. Small hemorrhagic cyst within the right renal cortex. No surgical intervention required at this time as per surgery Continue conservative management If Hgb drops and retroperitoneal hematoma increases in size, will need to transfer to tertiary care for IR intervention for possible embolization Continue monitor closely Continue Full liquid, will advanced diet as tolerated September 29, 2020 Hg stable at 8.9 Still having left lower quadrant pain likely secondary to Constipation, possible referred pain from retroperitoneal hematoma CT abdomen pelvis: Improving/stable retroperitoneal hematoma, mild fecal retention, no obstruction Continue response with tapwater enema If unsuccessful, may need manual disimpaction Continue as needed analgesics --GI and general surgery on board Fever --Unclear etiology at this time --CT abdomen pelvis not demonstrating intra-abdominal infection or abscess --Possible source buttock wound Rule out bacteremia --Urinalysis negative X-ray negative MRSA nasal swab negative --Obtain wound culture --Obtain wound care consult --Empiric Zosyn rash denies any itchiness on topical steroid BID -- resolved Ependymoma: Chronic paraplegia: Spastic hemiparesis: Status post surgical resection and XRT in the Continue tizanidine at bedtime Continue f/u with neurosurgery Anemia: Anemia of acute blood loss H/O iron deficiency Hgb: 11 on admission, Baseline ~10 -- Hg seems to be stable at ~8 x few days -- monitor GERD: continue PPI DVT prophylaxis: SCDs in light of retroperitoneal hematoma Full Code Disposition possible d/c to Acute Rehab Admission and Anticipated Discharge Date Admission Date: September 25, 2020 Subjective Follow-up for retroperitoneal hematoma, constipation, Seen resting in bed, not in distress Positive fever 38 earlier this morning Patient reports chills Still has left lower quadrant pain Tapwater enema in progress every 6 hours, scant amount of stools noted Denies headache, dizziness, chest pain, shortness of breath, cough No other symptoms Review of Systems Review of Systems: All noted negative except for above Physical Exam Physical Exam: General- oriented x 3, not in distress, speaks in sentences with no effort or accessory muscle use Eyes- anicteric Neck- no JVD Lungs- clear breath sounds bilaterally, no crackles or wheezing Heart- normal rate, regular rhythm; no murmurs Abdomen-mildly hypoactive bowel sounds, nondistended, soft, nontender Extremities- no pretibial edema, no calf tenderness Buttock-positive wound on the upper area of the left buttock region, with surrou nding erythema and tenderness Neuro- alert, oriented x 3; no new gross focal neurologic deficits Skin- warm & dry Results & Data Results & Data ([facility]) Vital Signs (Past 12 Hours) Vital Signs Temp Pulse Pulse Resp BP BP Pulse Ox 09/29/20 14:57 88 09/29/20 14:00 36.9 C 90 18 118/61 98 09/29/20 11:28 37.0 C 92 H 18 110/71 96 09/29/20 07:00 38.0 C H 89 20 101/54 L 93 all noted and reviewed including below (1) Hematoma of right iliopsoas muscle Encounter type: initial encounter Qualified Code(s): S70.11XA - Contusion of right thigh, initial encounter (2) Abdominal pain Abdominal location: left lower quadrant Qualified Code(s): R10.32 - Left lower quadrant pain
[2020-09-29] MEDS: oxyCODONE HCL IR 5 MG TAB (IMMEDIATE RELEASE) PO PRN (21:18)
[2020-09-29] MEDS: PANTOprazole 40 MG TAB PO SCH (21:21)
[2020-09-29] MEDS: TAMSULOSIN HCL 0.4 MG CAP PO SCH (21:21)
[2020-09-29] MEDS: tiZANidine HCL 4 MG TABLET PO SCH (23:34)
[2020-09-30] MEDS: D5NSS + 20MEQ KCL 20 MEQ/1,000 ML BAG IV SCH ×3 (02:51→23:03)
[2020-09-30] MEDS: MoRPHine SULFATE 4 MG/ML 1 ML CARP\\VIAL IV PRN ×2 (05:42→11:24)
[2020-09-30 06:02] LABS: Basophils # (auto) 0.02 K/uL (0-0.2); Basophils % (auto) 0.3 %; Eosinophils # (auto) 0.08 K/uL (0-0.5); Eosinophils % (auto) 1.3 %; Hematocrit (blood only) 28.2 % (42-52); Hemoglobin 8.5 g/dL (14.0-18.0); Immature Granulocytes # (auto) 0.06 K/uL (0.00-0.02); Immature Granulocytes % (auto) 0.9 %; Lymphocytes % (auto) 14.1 %; Mean Corpuscular Hemoglobin 23.8 pg (25-34); Mean Corpuscular Hgb Conc 30.1 g/dL (32-36); Mean Platelet Volume 9.6 fL (7.4-10.4); Monocytes # (auto) 0.59 K/uL (0.11-0.59); Monocytes % (auto) 9.3 %; Neutrophils # (auto) 4.72 K/uL (1.4-6.5); Neutrophils % (auto) 74.1 %; Platelet Count 328 K/uL (130-400); RDW Coefficient of Variation 16.8 % (11.5-14.5); RDW Standard Deviation 48.7 fL (36.4-46.3); Red Blood Count 3.57 M/uL (4.7-6.1); White Blood Count 6.37 K/uL (4.8-10.8)
[2020-09-30 06:30] LABS: Albumin Level 2.3 gm/dl (3.4-5.0); BUN Creatinine Ratio 24.2 (10-20); Calcium 8.2 mg/dl (8.5-10.1); Creatinine Clr Calc Pharmacy 208.1 ml/min; Est GFR (African American) 141.1 ml/min; Est GFR (Non-African American) 121.7 ml/min; Potassium 4.2 mmol/L (3.5-5.1)
[2020-09-30 06:33] LABS: Albumin Globulin Ratio 0.5 (0.9-2); Bilirubin,Total 0.5 mg/dl (0.2-1); Globulin 4.5 gm/dl (2.5-4.0); Total Protein 6.8 gm/dl (6.4-8.2)
[2020-09-30] MEDS: PYRIDOXINE HCL 50 MG TAB PO SCH (08:03)
[2020-09-30] MEDS: DOCUSATE SODIUM 100 MG CAP PO SCH ×2 (08:03→20:03)
[2020-09-30] MEDS: TRIAMCINOLONE ACET 0.025% CR 15 GM TUBE EXT SCH ×2 (08:04→20:03)
[2020-09-30] MEDS: MAGNESIUM OXIDE 400 MG TAB PO SCH (08:04)
[2020-09-30] MEDS: PIPERACILLIN/TAZOBACTAM 3.375 GM in DEXTROSE 5% 100 ML IV SCH ×3 (08:04→23:03)
[2020-09-30] MEDS: POLYETHYLENE (MIRALAX) 17 GM PACK PO SCH (08:16)
--- NOTE | 2020-09-30 11:39 | Progress Note ---
Date of Service September 30, 2020 Assessment & Plan (1) Retroperitoneal hemorrhage: Plan: hemodynamically stable hemoglobin stable at 8.7 today (8.9 yesterday) abdomen is soft, nontender today Plan: No acute surgical intervention required at this time as hemoglobin stable and hematoma stable on repeat CT scan no further ct scans recommended unless drop in hemoglobin Informed patient that this could take months to completely resolve. 09/30/2020 11:45 Am laz Quijano Plan: F/U abdominal hematoma, stable, No acute surgical intervention required at this time as hemoglobin stable and hematoma stable on repeat CT scan(09/29/2020) the pain on let side abdomen most likely GI spasm, continue conservative treatment. 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 Do not feel it is related to the right iliopsoas hematoma Abdominal location: left lower quadrant Qualified Code(s): R10.32 - Left lower quadrant pain (3) Constipation: Plan: Have tried daily Miralax, BID Colace, and two enemas yesterday without significant bowel movements CT scan showing stool in rectum, may need manual disimpaction GI consult Should be on bowel regimen at home Discussed patient with Dr. Kate who agrees with above. Admission and Anticipated Discharge Date Admission Date: September 25, 2020 Supervising Physician Co-Signing Physician Notes I have seen and examined the patient with PROSPER Ceballos whose note reflects our findings and plan. Subjective Follow-up for retroperitoneal hematoma, constipation, Seen resting in bed, not in distress Positive fever 38 earlier this morning Patient reports chills Still has left lower quadrant pain Tapwater enema in progress every 6 hours, scant amount of stools noted Denies headache, dizziness, chest pain, shortness of breath, cough No other symptoms 09/30/2020 111:41AM laz QUIJANO Follow-up for retroperitoneal hematoma, constipation, passe BM 3 times, Seen resting in bed, not in distress Positive fever 38 earlier this morning, now T 37.1 Patient reports chills Still has left lower quadrant pain Denies headache, dizziness, chest pain, shortness of breath, cough No other symptoms Review of Systems Constitutional: no fever, no chills and no anorexia Respiratory: no cough and no dyspnea Cardiovascular: no chest pain Gastrointestinal: + abdominal pain, + nausea and + constipation; no vomiting Genitourinary: no dysuria Musculoskeletal: no back pain and no neck pain Integumentary: no rash and no lesions Physical Exam Constitutional: WD/WN, vitals as above Eyes: PERRL, conjunctivae normal, anicteric sclerae Neck: trachea midline, no thyromegaly Respiratory: normal respiratory effort, lungs clear to auscultation Cardiovascular: RRR, no murmur, no edema Gastrointestinal (Abdomen): soft. mild tenderness at left side abdominal no rebound pain, no tenderness at right side abdomen, BS +, just pass some BM, Neurologic: patellar DTR's 2+ bilat, sensation intact Psychiatric: A+Ox3, euthymic affect Results & Data ([facility]) Vital Signs (Past 12 Hours) Vital Signs Temp Pulse Pulse Resp BP BP Pulse Ox 09/30/20 09:53 83 09/30/20 07:51 37.1 C 85 20 105/66 94 09/30/20 03:00 37 C 80 20 100/57 L 94 Laboratory Results Abnormal lab results 09/30/20 09/30/20 Range/Units 05:23 05:23 RBC 3.57 L (4.7-6.1) M/uL Hgb 8.5 L (14.0-18.0) g/dL Hct 28.2 L (42-52) % MCV 79.0 L (80-100) fL MCH 23.8 L (25-34) pg MCHC 30.1 L (32-36) g/dL RDW Std Deviation 48.7 H (36.4-46.3) fL RDW Coeff of Brendon 16.8 H (11.5-14.5) % Lymph # (Auto) 0.90 L (1.2-3.4) K/uL Immature Gran # (Auto) 0.06 H (0.00-0.02) K/uL Creatinine 0.52 L (0.6-1.4) mg/dl BUN/Creatinine Ratio 24.2 H (10-20) Glucose 115 H (70-99) mg/dl Calcium 8.2 L (8.5-10.1) mg/dl Albumin 2.3 L (3.4-5.0) gm/dl Globulin 4.5 H (2.5-4.0) gm/dl Albumin/Globulin Ratio 0.5 L (0.9-2) Diagnostic Findings CT SCAN OF THE ABDOMEN AND PELVIS WITH IV CONTRAST CLINICAL HISTORY: Left lower quadrant abdominal pain. Fever. Retroperitoneal hematoma. COMPARISON STUDY: Abdominal CT scans dated 09/26/2020, 09/25/2020, and 09/24/2020. TECHNIQUE: Following the IV administration of 94 cc of Optiray 320, CT scan of the abdomen and pelvis is performed from the lung bases to the proximal femora. Images are reviewed in the axial, sagittal, and coronal planes. IV contrast was without complication. A dose lowering technique was utilized adhering to the principles of ALARA. CT DOSE: 873.06 mGy.cm FINDINGS: Lung bases: The heart is normal in size and without pericardial effusion. There is dependent atelectasis. A trace right pleural effusion has almost completely resolved. A tiny hiatal hernia is noted. Liver: The contrast-enhanced liver is enlarged, measuring 21.7 cm in length. The liver is otherwise normal in contour and attenuation. There is no intrahepatic biliary ductal dilatation. The hepatic veins and portal veins are patent. Gallbladder: Gallstones are noted with no CT evidence of acute cholecystitis. Spleen: The spleen is enlarged measuring 16.6 cm in length. Pancreas: Unremarkable. Adrenal glands: Unremarkable. Kidneys: The contrast-enhanced kidneys are normal in size and without hydronephrosis. Renal sinus cysts are noted on the left. The kidneys enhance symmetrically. Abdominal vasculature: The abdominal aorta is normal in course and caliber. Bowel: There are scattered colonic diverticula without CT evidence of acute diverticulitis. No bowel obstruction is seen. Mild fecal retention is noted throughout the colon. The appendix is normal as visualized Peritoneum/retroperitoneum: Again seen is a large intramuscular hemorrhage with in the right psoas. This has minimally decreased in size from 09/26/2020, measuring up to 7.6 cm in maximum axial dimension. No active extravasation is identified at the time of examination. There is right-sided retroperitoneal extension images are also unchanged to minimally decreased from previous. There is only trace blood within the left paracolic gutter on today's examination. Intraperitoneal extension appears to have resolved. No intraperitoneal free air is identified. There is a fat-containing umbilical hernia. Lymphadenopathy: None. Pelvic viscera: The prostate gland is diminutive and heterogeneous. The bladder is decompressed around a Balbuena catheter and appears thick walled. Pericystic infiltration is noted. Skeletal structures: The skeletal structures are osteopenic. There is mild lumbosacral spondylosis. No lytic or blastic lesions are seen. Soft tissues: Heterogeneous appearance of the right lateral abdominal wall musculature musculature with associated subcutaneous soft tissue edema is again noted. There is a trace residual crescentic fluid collection identified in the right hip musculature on image #[id number]. IMPRESSION: 1. A large intramuscular hemorrhage of the right psoas muscle has minimally decreased in size from 09/26/2020. 2. Retroperitoneal extension of hemorrhage on the right is unchanged to minimally decreased from previous. Hemorrhage within the left paracolic gutter has almost completely resolved. 3. Intraperitoneal extension has almost completely resolved from previous. 4. The bladder is decompressed around a Balbuena catheter and appears circumfere ntially thick walled. There is surrounding infiltration and correlation with urinalysis will required. 5. There is unchanged appearance of a nonspecific heterogeneous abnormality/inflammatory process within the right lateral abdominal wall and hip musculature/overlying soft tissues. Clinical correlation will be required. 6. Hepatosplenomegaly. 7. Cholelithiasis. 8. Additional findings as above.
--- NOTE | 2020-09-30 16:22 | Hospitalist Progress Note ---
Date of Service September 30, 2020 delayed entry, date of service above Assessment & Plan (1) Retroperitoneal hemorrhage: (2) Hematoma of right iliopsoas muscle: (3) Abdominal pain: Plan: per Dr. Tellez's notes: Present no admission with cramping abdominal pain CT abd/pelvis showed CT abdomen pelvis was obtained showing Interval development of a moderate right iliopsoas/retroperitoneal hematoma. Slight improvement in the heterogeneous abnormality/inflammatory process within the right lateral abdominal wall and right hip musculature. ER physician spoke to general surgeon at [facility] [place] who recommended that patient did not require transfer to at this time. Hgb dropped to 8.9, then increased to 9.3 then 8.[address] abd/pelvis today showed large intramuscular hemorrhage of the right psoas muscle has not appreciably changed from yesterday.Retroperitoneal extension of hemorrhage has minimally increased from yesterday. Surgery on board repeat CT on 09/26 showed stable size of the large intramuscular hemorrhage of the right psoas muscle which extends to the peritoneal cavity is unchanged since prior study yesterday. Stable appearance of the edema of the right lateral abdominal wall. Small hemorrhagic cyst within the right renal cortex. No surgical intervention required at this time as per surgery Continue conservative management If Hgb drops and retroperitoneal hematoma increases in size, will need to transfer to tertiary care for IR intervention for possible embolization Continue monitor closely Continue Full liquid, will advanced diet as tolerated September 30, 2020 Hg stable at 8.9 Still having left lower quadrant pain--> relieved by BM, analgesics likely secondary to Constipation, possible GI Spasm, abdominal wall muscular pain? CT abdomen pelvis: Improving/stable retroperitoneal hematoma, mild fecal ret ention, no obstruction -- responded to tap water enema x 48 hours also on laxatives -- add scheduled Tylenol q6h add Lidoderm patch to LLQ continue PRN Oxycodone, Morphine --GI and general surgery on board Fever --Unclear etiology at this time --CT abdomen pelvis not demonstrating intra-abdominal infection or abscess --Possible source buttock wound Rule out bacteremia --Urinalysis negative X-ray negative MRSA nasal swab negative -- wound culture: pending blood cultures: negative so far -- obtain wound care consult --Empiric Zosyn Rash denies any itchiness on topical steroid BID -- resolved Ependymoma: Chronic paraplegia: Spastic hemiparesis: Status post surgical resection and XRT in the Continue tizanidine at bedtime Continue f/u with neurosurgery Anemia: Anemia of acute blood loss H/O iron deficiency Hgb: 11 on admission, Baseline ~10 -- Hg stable at ~8 x few days -- monitor GERD: continue PPI DVT prophylaxis: SCDs in light of retroperitoneal hematoma Full Code Disposition possible d/c to Acute Rehab when medically stable Admission and Anticipated Discharge Date Admission Date: September 25, 2020 Subjective ff up for retroperitoneal hemorrhage, constipation, etc seen resting in bed, not in distress patient has been having LLQ pain mostly relived by bowel movement after tap water enema feels like cramps, also worse with movement NO right sided abdominal pain appetite fair no headache, dizziness, chest pain, palpitations, dyspnea, cough no other symptoms Review of Systems Review of Systems: all negative and reviewed except for above Physical Exam Physical Exam: General- oriented x 3, not in distress, speaks in sentences with no effort or accessory muscle use Eyes- anicteric Neck- no JVD Lungs- clear BS BL no rales/wheezing Heart- normal rate, regular rhythm; no murmurs Abdomen- normal bowel sounds, nondistended, soft, (+) LLQ tenderness Extremities- no pretibial edema, no calf tenderness Neuro- alert, oriented x 3; no gross focal neurologic deficits Skin- warm & dry Results & Data Results & Data ([facility]) Vital Signs (Past 12 Hours) Vital Signs Temp Pulse Pulse Resp BP Pulse Ox 09/30/20 15:29 92 H 09/30/20 15:16 37.3 C 101 H 20 145/78 H 95 09/30/20 11:00 36.8 C 91 H 20 96/58 L 95 09/30/20 09:53 83 09/30/20 07:51 37.1 C 85 20 105/66 94 all noted and reviewed including below (1) Hematoma of right iliopsoas muscle Encounter type: initial encounter Qualified Code(s): S70.11XA - Contusion of right thigh, initial encounter (2) Abdominal pain Abdominal location: left lower quadrant Qualified Code(s): R10.32 - Left lower quadrant pain
[2020-09-30] MEDS: ACETAMINOPHEN 325 MG TAB PO SCH ×2 (16:43→21:21)
[2020-09-30] MEDS: LIDOCAINE 4% CREAM 15 GM TUBE EXT PRN (16:43)
[2020-09-30] MEDS: LIDOCAINE 5% 1 PATCH TD SCH (16:43)
[2020-09-30] MEDS: TAMSULOSIN HCL 0.4 MG CAP PO SCH (20:02)
[2020-09-30] MEDS: PANTOprazole 40 MG TAB PO SCH (20:03)
[2020-09-30] MEDS: tiZANidine HCL 4 MG TABLET PO SCH (21:21)
[2020-09-30] MEDS: oxyCODONE HCL IR 5 MG TAB (IMMEDIATE RELEASE) PO PRN (21:22)
[2020-10-01] MEDS: ACETAMINOPHEN 325 MG TAB PO SCH ×4 (03:11→20:52)
[2020-10-01 06:26] LABS: Basophils # (auto) 0.01 K/uL (0-0.2); Basophils % (auto) 0.2 %; Eosinophils % (auto) 1.5 %; Hematocrit (blood only) 25.7 % (42-52); Hemoglobin 7.8 g/dL (14.0-18.0); Immature Granulocytes # (auto) 0.03 K/uL (0.00-0.02); Immature Granulocytes % (auto) 0.5 %; Lymphocytes # (auto) 1.01 K/uL (1.2-3.4); Lymphocytes % (auto) 15.4 %; Mean Corpuscular Hemoglobin 24.1 pg (25-34); Mean Corpuscular Hgb Conc 30.4 g/dL (32-36); Mean Corpuscular Volume 79.3 fL (80-100); Mean Platelet Volume 8.9 fL (7.4-10.4); Monocytes # (auto) 0.51 K/uL (0.11-0.59); Monocytes % (auto) 7.8 %; Neutrophils # (auto) 4.89 K/uL (1.4-6.5); Neutrophils % (auto) 74.6 %; Platelet Count 336 K/uL (130-400); RDW Standard Deviation 49.5 fL (36.4-46.3); Red Blood Count 3.24 M/uL (4.7-6.1); White Blood Count 6.55 K/uL (4.8-10.8)
[2020-10-01] MEDS: PIPERACILLIN/TAZOBACTAM 3.375 GM in DEXTROSE 5% 100 ML IV SCH ×3 (06:36→22:22)
[2020-10-01 06:55] LABS: Albumin Level 2.1 gm/dl (3.4-5.0); BUN Creatinine Ratio 24.8 (10-20); Calcium 8.1 mg/dl (8.5-10.1); Creatinine Clr Calc Pharmacy 183.4 ml/min; Est GFR (Non-African American) 115.6 ml/min; Hypochromasia Present; Potassium 4.1 mmol/L (3.5-5.1)
[2020-10-01 06:58] LABS: Albumin Globulin Ratio 0.5 (0.9-2); Bilirubin,Total 0.6 mg/dl (0.2-1); Globulin 4.2 gm/dl (2.5-4.0); Total Protein 6.3 gm/dl (6.4-8.2)
[2020-10-01] MEDS: PYRIDOXINE HCL 50 MG TAB PO SCH (09:12)
[2020-10-01] MEDS: DOCUSATE SODIUM 100 MG CAP PO SCH ×2 (09:12→20:45)
[2020-10-01] MEDS: POLYETHYLENE (MIRALAX) 17 GM PACK PO SCH (09:13)
[2020-10-01] MEDS: LIDOCAINE 4% CREAM 15 GM TUBE EXT PRN (09:13)
[2020-10-01] MEDS: TRIAMCINOLONE ACET 0.025% CR 15 GM TUBE EXT SCH ×2 (09:14→20:52)
--- NOTE | 2020-10-01 10:30 | Surgery Progress Note ---
Date of Service October 01, 2020 Assessment & Plan (1) Retroperitoneal hemorrhage: Plan: H&H has remained stable repeat CT with some improvement nothing further to add seen with Dr. Caba Admission and Anticipated Discharge Date Admission Date: September 25, 2020 Subjective right sided abdominal pain improved after webb was "fixed" Physical Exam Gastrointestinal (Abdomen): Percussion/Palpation: + abdomen tender (minimal) and abdomen soft Results & Data ([facility]) Vital Signs (Past 12 Hours) Vital Signs Temp Pulse Pulse Pulse Resp BP BP 10/01/20 07:38 36.9 C 60 16 108/62 10/01/20 07:27 93 H 10/01/20 03:00 36.9 C 87 20 108/63 09/30/20 23:01 37.4 C 83 0 L 104/58 L Pulse Ox 10/01/20 07:38 96 10/01/20 07:27 10/01/20 03:00 95 09/30/20 23:01 94 PG Care Time/CCT Total # of Minutes Spent Total Time Spent with Patient: Total time spent is greater than 50% in coordination of care (as documented) at patient's floor/unit and/or counseling patient: Coding Level of Care Code 88824 Subseq Hosp Care Lvl 1 Diagnoses Retroperitoneal hemorrhage R58
--- NOTE | 2020-10-01 15:20 | Hospitalist Progress Note ---
Date of Service October 01, 2020 Assessment & Plan (1) Retroperitoneal hemorrhage: Plan: Presented with cramping abdominal pain as below and noted to have A moderate right iliopsoas/retroperitoneal hematoma. Slight improvement in the heterogeneous abnormality/inflammatory process within the right lateral abdominal wall and right hip musculature on CT of the abdomen and pelvis General surgery at [facility] [place] did not recommend transfer Appreciate surgery input and recommendation for monitoring Remains stable with stable hemoglobin Repeat CT of the abdomen and pelvis has been showing improvement of the hematoma-with increasing hemorrhage he may need to be transferred to tertiary care center for IR mediated aspiration of the blood We will monitor CBC (2) Hematoma of right iliopsoas muscle: Plan: As above (3) Abdominal pain: Plan: Secondary to spontaneous bleeding as mentioned above Present no admission with cramping abdominal pain CT abd/pelvis showed CT abdomen pelvis was obtained showing Interval development of a moderate right iliopsoas/retroperitoneal hematoma. Slight improvement in the heterogeneous abnormality/inflammatory process within the right lateral abdominal wall and right hip musculature. ER physician spoke to general surgeon at [facility] who recommended that patient did not require transfer to at this time. Hgb dropped to 8.9, then increased to 9.3 then 8.[address] abd/pelvis today showed large intramuscular hemorrhage of the right psoas muscle has not appreciably changed from yesterday.Retroperitoneal extension of hemorrhage has minimally increased from yesterday. Surgery on board repeat CT on 09/26 showed stable size of the large intramuscular hemorrhage of the right psoas muscle which extends to the peritoneal cavity is unchanged since prior study yesterday. Stable appearance of the edema of the right lateral abdominal wall. Small hemorrhagic cyst within the right renal cortex. No surgical intervention required at this time as per surgery Continue conservative management If Hgb drops and retroperitoneal hematoma increases in size, will need to transfer to tertiary care for IR intervention for possible embolization Continue monitor closely Continue Full liquid, will advanced diet as tolerated Left lower quadrant abdominal pain-likely complicated by constipation Still having left lower quadrant pain--> relieved by BM, analgesics likely secondary to Constipation, possible GI Spasm, abdominal wall muscular pain? CT abdomen pelvis: Improving/stable retroperitoneal hematoma, mild fecal retention, no obstruction Improved with bowel movement Clinically better Fever Possible source buttock wound Unclear etiology at this time CT abdomen pelvis not demonstrating intra-abdominal infection or abscess Rule out bacteremia-blood culture have been negative so far Urinalysis negative CX-ray negative MRSA nasal swab negative Wound culture is growing gram-negative bacilli sensitivity pending Continue empiric Zosyn ID has been consulted Rash denies any itchiness on topical steroid BID -- resolved History of ependymoma: Chronic paraplegia: Spastic hemiparesis: Status post surgical resection and XRT in the Continue tizanidine at bedtime Continue f/u with neurosurgery Anemia: Anemia of acute blood loss H/O iron deficiency Hgb: 11 on admission, Baseline ~10 -- Hg stable at ~8 x few days -- monitor GERD: continue PPI DVT prophylaxis: SCDs in light of retroperitoneal hematoma Full Code Disposition possible d/c to Acute Rehab when medically stable Admission and Anticipated Discharge Date Admission Date: September 25, 2020 Subjective 10/01/2020 The patient was seen and examined in medical telemetry unit His left lower quadrant pain has improved a lot Denies any more back pain, any more distention of the abdomen, no nausea and/or vomiting Review of Systems Review of Systems: All systems reviewed and are unremarkable except as noted b elow Neurologic: Has paraplegia and spastic hemiparesis Physical Exam Physical Exam: Lying in bed comfortably Constitutional: well developed, well nourished, + ill appearing and + obese Eyes: PERRL, conjunctivae normal, anicteric sclerae ENMT: external ear and nose normal, oropharynx normal Neck: trachea midline, no thyromegaly Respiratory: no respiratory distress and no cough Auscultation: lungs clear to auscultation bilaterally and + diminished lung sounds Cardiovascular: Rate/Rhythm: regular rate and regular rhythm; not tachycardic Heart Sounds: normal S1 and normal S2; no murmur Extremities: no edema Gastrointestinal (Abdomen): normal bowel sounds, soft, nontender, no hepatosplenomegaly Musculoskeletal: Cannot move his right lower extremity at all. No acute arthritis in any joint Skin: Has buttock wound Neurologic: Alert, awake and oriented x3. Has paraplegia with right lower extremity weaker than the left Results & Data Results & Data ([facility]) Vital Signs (Past 12 Hours) Vital Signs Temp Pulse Pulse Resp BP Pulse Ox 10/01/20 11:45 37.0 C 76 16 102/58 L 65 L 10/01/20 07:38 36.9 C 60 16 108/62 96 10/01/20 07:27 93 H Laboratory Results Short CBC 10/01/20 Range/Units 05:49 WBC 6.55 (4.8-10.8) K/uL Hgb 7.8 L (14.0-18.0) g/dL Hct 25.7 L (42-52) % Plt Count 336 (130-400) K/uL BMP 10/01/20 05:49 Sodium 136 Potassium 4.1 Chloride 105 Carbon Dioxide 29 BUN 15 Creatinine 0.59 L Glucose 106 H Calcium 8.1 L Liver Function 10/01/20 Range/Units 05:49 Total Bilirubin 0.6 (0.2-1) mg/dl AST 24 (15-37) U/L ALT 27 (12-78) U/L Alkaline Phosphatase 89 (45-117) U/L Albumin 2.1 L (3.4-5.0) gm/dl Medications Administered Current Inpatient Medications Acetaminophen (Acetaminophen 325 Mg Tab) 650 mg PO Q4H PRN PRN Reason: Pain or Fever Stop: 10/23/20 21:43 Last Admin: 09/27/20 12:51 Dose: 650 mg Documented by: Acetaminophen (Acetaminophen 325 Mg Tab) 650 mg PO Q6H [facility] Stop: 10/30/20 15:59 Last Admin: 10/01/20 09:15 Dose: 650 mg Documented by: Docusate Sodium (Docusate Sodium 100 Mg Cap) 100 mg PO BID [facility] Stop: 10/23/20 21:43 Last Admin: 10/01/20 09:12 Dose: 100 mg Documented by: Promethazine HCl 12.5 mg/ (Sodium Chloride) 50.5 mls @ 202 mls/hr IV Q6H PRN PRN Reason: Nausea And Vomiting Stop: 10/26/20 11:18 Last Infusion: 09/28/20 12:27 Dose: Infused Documented by: Piperacillin Sod/Tazobactam (Sod 3.375 gm/ Dextrose) 115 mls @ 28.75 mls/hr IV Q8H [facility]; Protocol Stop: 10/09/20 14:59 Last Infusion: 10/01/20 10:44 Dose: Infused Documented by: Potassium Chloride/Dextrose/Sod Cl (D5nss + 20meq Kcl) 20 meq in 1,000 mls @ 60 mls/hr IV .[id number] [facility] Stop: 10/29/20 16:44 Last Admin: 09/30/20 23:03 Dose: 60 mls/hr Documented by: Lidocaine (Lidocaine 4% Cream 15 Gm Tube) 1 appln EXT QID PRN PRN Reason: Pain Stop: 10/30/20 13:19 Last Admin: 10/01/20 09:13 Dose: 1 appln Documented by: Lidocaine (Lidocaine 5% 1 Patch) 1 patch TD DAILY@1700 [facility] Stop: 10/30/20 16:59 Last Admin: 09/30/20 16:43 Dose: 1 patch Documented by: Magnesium Oxide (Magnesium Oxide 400 Mg Tab) 400 mg PO MoWeFr [facility] Stop: 10/26/20 08:59 Last Admin: 09/30/20 08:04 Dose: 400 mg Documented by: Miconazole Nitrate (Miconazole Nitrate Powder 43 Gm) 1 appln EXT PRN PRN PRN Reason: Affected Skin Folds Stop: 10/23/20 23:27 Miscellaneous (Remove Lidoderm Patch) 1 ea N/A DAILY@0500 [facility] Stop: 10/30/20 16:58 Last Admin: 10/01/20 03:14 Dose: 1 ea Documented by: Miscellaneous Information (Piperacill/Tazobac Consult Active) 1 ea N/A UD PRN PRN Reason: Consult Stop: 10/29/20 09:43 Morphine Sulfate (Morphine Sulfate 4 Mg/Ml 1 Ml Carp\Vial) 4 mg IV Q4H PRN PRN Reason: Pain Stop: 10/08/20 22:18 Last Admin: 09/30/20 11:24 Dose: 4 mg Documented by: Ondansetron HCl (Ondansetron Inj 2 Mg/Ml 2 Ml Vial) 4 mg IV Q6H PRN PRN Reason: Nausea Stop: 10/23/20 21:43 Last Admin: 09/29/20 17:20 Dose: 4 mg Documented by: Oxycodone HCl (Oxycodone Hcl Ir 5 Mg Tab (Immediate Release)) 5 - 10 mg PO QID PRN PRN Reason: Pain Stop: 10/08/20 22:18 Last Admin: 09/30/20 21:22 Dose: 10 mg Documented by: Pantoprazole Sodium (Pantoprazole 40 Mg Tab) 40 mg PO QPM [facility] Stop: 10/23/20 21:44 Last Admin: 09/30/20 20:03 Dose: 40 mg Documented by: Polyethylene Glycol (Polyethylene (Miralax) 17 Gm Pack) 17 gm PO DAILY [facility] Stop: 10/26/20 11:29 Last Admin: 10/01/20 09:13 Dose: Not Given Documented by: Pyridoxine HCl (Pyridoxine Hcl 50 Mg Tab) 100 mg PO QAM [facility] Stop: 10/24/20 08:59 Last Admin: 10/01/20 09:12 Dose: 100 mg Documented by: Tamsulosin HCl (Tamsulosin Hcl 0.4 Mg Cap) 0.4 mg PO [facility] Stop: 10/23/20 21:43 Last Admin: 09/30/20 20:02 Dose: 0.4 mg Documented by: Tizanidine HCl (Tizanidine Hcl 4 Mg Tablet) 8 mg PO [facility] Stop: 10/23/20 21:43 Last Admin: 09/30/20 21:21 Dose: 8 mg Documented by: Triamcinolone Acetonide (Triamcinolone Acet 0.025% Cr 15 Gm Tube) 1 appln EXT BID [facility] Stop: 10/26/20 20:59 Last Admin: 10/01/20 09:14 Dose: 1 appln Documented by: (1) Hematoma of right iliopsoas muscle Encounter type: initial encounter Qualified Code(s): S70.11XA - Contusion of right thigh, initial encounter (2) Abdominal pain Abdominal location: left lower quadrant Qualified Code(s): R10.32 - Left lower quadrant pain
[2020-10-01] MEDS: ONDANSETRON INJ 2 MG/ML 2 ML VIAL IV PRN (15:42)
[2020-10-01] MEDS: D5NSS + 20MEQ KCL 20 MEQ/1,000 ML BAG IV SCH (15:50)
[2020-10-01] MEDS: LIDOCAINE 5% 1 PATCH TD SCH (15:51)
[2020-10-01] MEDS: FUROSEMIDE 40 MG TAB PO SCH (20:44)
[2020-10-01] MEDS: tiZANidine HCL 4 MG TABLET PO SCH (20:46)
[2020-10-01] MEDS: PANTOprazole 40 MG TAB PO SCH (20:46)
[2020-10-01] MEDS: TAMSULOSIN HCL 0.4 MG CAP PO SCH (20:46)
[2020-10-01] MEDS: oxyCODONE HCL IR 5 MG TAB (IMMEDIATE RELEASE) PO PRN (20:50)
[2020-10-01] MEDS ORDERED: SODIUM CHLORIDE 0.9% 500 ML IV SCH (23:15)
[2020-10-01 23:43] LABS: Hematocrit (blood only) 24.1 % (42-52); Hemoglobin 7.3 g/dL (14.0-18.0)
[2020-10-02] MEDS: ACETAMINOPHEN 325 MG TAB PO SCH ×4 (03:57→21:55)
[2020-10-02] MEDS: PIPERACILLIN/TAZOBACTAM 3.375 GM in DEXTROSE 5% 100 ML IV SCH ×3 (05:47→21:57)
[2020-10-02 06:57] LABS: Basophils # (auto) 0.01 K/uL (0-0.2); Basophils % (auto) 0.2 %; Eosinophils % (auto) 1.8 %; Hematocrit (blood only) 24.7 % (42-52); Hemoglobin 7.4 g/dL (14.0-18.0); Immature Granulocytes # (auto) 0.02 K/uL (0.00-0.02); Immature Granulocytes % (auto) 0.4 %; Lymphocytes # (auto) 1.02 K/uL (1.2-3.4); Lymphocytes % (auto) 18.1 %; Mean Corpuscular Hemoglobin 23.6 pg (25-34); Mean Corpuscular Volume 78.9 fL (80-100); Mean Platelet Volume 8.7 fL (7.4-10.4); Monocytes # (auto) 0.51 K/uL (0.11-0.59); Neutrophils # (auto) 3.98 K/uL (1.4-6.5); Neutrophils % (auto) 70.5 %; Platelet Count 312 K/uL (130-400); RDW Standard Deviation 49.1 fL (36.4-46.3); Red Blood Count 3.13 M/uL (4.7-6.1); White Blood Count 5.64 K/uL (4.8-10.8)
[2020-10-02] MEDS: FUROSEMIDE 40 MG TAB PO SCH ×2 (07:33→09:31)
[2020-10-02 07:34] LABS: Albumin Level 2.2 gm/dl (3.4-5.0); BUN Creatinine Ratio 24.7 (10-20); Calcium 8.1 mg/dl (8.5-10.1); Creatinine Clr Calc Pharmacy 208.1 ml/min; Est GFR (African American) 141.1 ml/min; Est GFR (Non-African American) 121.7 ml/min
[2020-10-02 07:36] LABS: Albumin Globulin Ratio 0.5 (0.9-2); Anisocytosis Present; Bilirubin,Total 0.4 mg/dl (0.2-1); Globulin 4.3 gm/dl (2.5-4.0); Hypochromasia Present; Total Protein 6.5 gm/dl (6.4-8.2)
[2020-10-02] MEDS: ONDANSETRON INJ 2 MG/ML 2 ML VIAL IV PRN ×2 (08:32→16:05)
[2020-10-02] MEDS: DOCUSATE SODIUM 100 MG CAP PO SCH ×2 (09:27→21:56)
[2020-10-02] MEDS: POLYETHYLENE (MIRALAX) 17 GM PACK PO SCH (09:27)
[2020-10-02] MEDS: PYRIDOXINE HCL 50 MG TAB PO SCH (09:27)
[2020-10-02] MEDS: TRIAMCINOLONE ACET 0.025% CR 15 GM TUBE EXT SCH ×2 (09:54→22:26)
--- NOTE | 2020-10-02 14:04 | Hospitalist Progress Note ---
Date of Service October 02, 2020 Assessment & Plan (1) Retroperitoneal hemorrhage: Plan: Presented with cramping abdominal pain as below and noted to have A moderate right iliopsoas/retroperitoneal hematoma. Slight improvement in the heterogeneous abnormality/inflammatory process within the right lateral abdominal wall and right hip musculature on CT of the abdomen and pelvis General surgery at [facility] did not recommend transfer Appreciate surgery input and recommendation for monitoring Remains stable with stable hemoglobin Repeat CT of the abdomen and pelvis has been showing improvement of the hematoma-with increasing hemorrhage he may need to be transferred to tertiary care center for IR mediated aspiration of the blood Abdominal pain is improved and hemoglobin remains stable at 7.4 today (2) Hematoma of right iliopsoas muscle: Plan: As above (3) Abdominal pain: Plan: Secondary to spontaneous bleeding as mentioned above Present no admission with cramping abdominal pain CT abd/pelvis showed CT abdomen pelvis was obtained showing Interval development of a moderate right iliopsoas/retroperitoneal hematoma. Slight improvement in the heterogeneous abnormality/inflammatory process within the right lateral abdominal wall and right hip musculature. ER physician spoke to general surgeon at [facility] who recommended that patient did not require transfer to at this time. Hgb dropped to 8.9, then increased to 9.3 then 8.[address] abd/pelvis today showed large intramuscular hemorrhage of the right psoas muscle has not appreciably changed from yesterday.Retroperitoneal extension of hemorrhage has minimally increased from yesterday. Surgery on board repeat CT on 09/26 showed stable size of the large intramuscular hemorrhage of the right psoas muscle which extends to the peritoneal cavity is unchanged since prior study yesterday. Stable appearance of the edema of the right lateral abdominal wall. Small hemorrhagic cyst within the right renal cortex. No surgical intervention required at this time as per surgery Continue conservative management If Hgb drops and retroperitoneal hematoma increases in size, will need to transfer to tertiary care for IR intervention for possible embolization Continue monitor closely Continue Full liquid, will advanced diet as tolerated Clinically better and has been passing gas but bowel has not moved yet Left lower quadrant abdominal pain-likely complicated by constipation Still having left lower quadrant pain--> relieved by BM, analgesics likely secondary to Constipation, possible GI Spasm, abdominal wall muscular pain? CT abdomen pelvis: Improving/stable retroperitoneal hematoma, mild fecal retention, no obstruction Improved with bowel movement Clinically better Fever Possible source sacral and buttock wound CT abdomen pelvis not demonstrating intra-abdominal infection or abscess Rule out bacteremia-blood culture have been negative so far Urinalysis negative CX-ray negative MRSA nasal swab negative Wound culture is growing gram-negative bacilli sensitivity pending Continue empiric Zosyn ID has been consulted-no more fever and no chills Rash denies any itchiness on topical steroid BID -- resolved History of ependymoma: Chronic paraplegia: Spastic hemiparesis: Status post surgical resection and XRT in the Continue tizanidine at bedtime Continue f/u with neurosurgery Anemia: Anemia of acute blood loss H/O iron deficiency Hgb: 11 on admission, Baseline ~10 -- Hg stable at ~8 x few days Hemoglobin is 7.4 as of 10/02/2020 GERD: continue PPI DVT prophylaxis: SCDs in light of retroperitoneal hematoma Full Code Disposition possible d/c to Acute Rehab when medically stable Admission and Anticipated Discharge Date Admission Date: September 25, 2020 Subjective 10/01/2020 The patient was seen and examined in medical telemetry unit His left lower quadrant pain has improved a lot Denies any more back pain, any more distention of the abdomen, no nausea and/or vomiting 10/02/2020 The patient was seen and examined in medical telemetry unit He was noted to have low blood pressure following Lasix yesterday Blood pressure seems to be stable as of this morning and he will get it today His abdominal pain and distention are much improved and he has been passing gas Review of Systems Review of Systems: All systems reviewed and are unremarkable except as noted below Neurologic: Has paraplegia and spastic hemiparesis Physical Exam Physical Exam: Lying in bed comfortably Constitutional: well developed, well nourished, + ill appearing and + obese Eyes: PERRL, conjunctivae normal, anicteric sclerae ENMT: external ear and nose normal, oropharynx normal Neck: trachea midline, no thyromegaly Respiratory: no respiratory distress and no cough Auscultation: lungs clear to auscultation bilaterally and + diminished lung sounds Cardiovascular: Rate/Rhythm: regular rate and regular rhythm; not tachycardic Heart Sounds: normal S1 and normal S2; no murmur Extremities: no edema Gastrointestinal (Abdomen): normal bowel sounds, soft, nontender, no hep atosplenomegaly Musculoskeletal: No acute arthritis in any joint but he is paraplegic with more weakness in the right side Skin: Has stage I-II decubiti involving the sacral area and buttock Results & Data Results & Data ([facility]) Vital Signs (Past 12 Hours) Vital Signs Temp Pulse Pulse Pulse Pulse Resp BP 10/02/20 11:25 36.9 C 88 20 127/65 10/02/20 09:32 68 103/65 10/02/20 07:28 83 10/02/20 07:14 86/42 L 10/02/20 07:11 36.8 C 84 14 82/42 L 10/02/20 03:00 36.7 C 73 20 100/52 L Pulse Ox 10/02/20 11:25 97 10/02/20 09:32 10/02/20 07:28 10/02/20 07:14 10/02/20 07:11 95 10/02/20 03:00 95 Laboratory Results Short CBC 10/01/20 10/02/20 Range/Units 23:36 06:43 WBC 5.64 (4.8-10.8) K/uL Hgb 7.3 L 7.4 L (14.0-18.0) g/dL Hct 24.1 L 24.7 L (42-52) % Plt Count 312 (130-400) K/uL BMP 10/02/20 06:43 Sodium 139 Potassium 4.0 Chloride 107 Carbon Dioxide 27 BUN 13 Creatinine 0.52 L Glucose 97 Calcium 8.1 L Liver Function 10/02/20 Range/Units 06:43 Total Bilirubin 0.4 (0.2-1) mg/dl AST 19 (15-37) U/L ALT 23 (12-78) U/L Alkaline Phosphatase 78 (45-117) U/L Albumin 2.2 L (3.4-5.0) gm/dl Medications Administered Current Inpatient Medications Acetaminophen (Acetaminophen 325 Mg Tab) 650 mg PO Q4H PRN PRN Reason: Pain or Fever Stop: 10/23/20 21:43 Last Admin: 09/27/20 12:51 Dose: 650 mg Documented by: Acetaminophen (Acetaminophen 325 Mg Tab) 650 mg PO Q6H [facility] Stop: 10/30/20 15:59 Last Admin: 10/02/20 10:45 Dose: 650 mg Documented by: Docusate Sodium (Docusate Sodium 100 Mg Cap) 100 mg PO BID [facility] Stop: 10/23/20 21:43 Last Admin: 10/02/20 09:27 Dose: 100 mg Documented by: Furosemide (Furosemide 40 Mg Tab) 40 mg PO QAM [facility] Stop: 10/31/20 18:29 Last Admin: 10/02/20 09:31 Dose: 40 mg Documented by: Promethazine HCl 12.5 mg/ (Sodium Chloride) 50.5 mls @ 202 mls/hr IV Q6H PRN PRN Reason: Nausea And Vomiting Stop: 10/26/20 11:18 Last Infusion: 09/28/20 12:27 Dose: Infused Documented by: Piperacillin Sod/Tazobactam (Sod 3.375 gm/ Dextrose) 115 mls @ 28.75 mls/hr IV Q8H [facility]; Protocol Stop: 10/09/20 14:59 Last Infusion: 10/02/20 09:54 Dose: Infused Documented by: Potassium Chloride/Dextrose/Sod Cl (D5nss + 20meq Kcl) 20 meq in 1,000 mls @ 60 mls/hr IV .[id number] [facility] Stop: 10/29/20 16:44 Last Admin: 10/01/20 15:50 Dose: 60 mls/hr Documented by: Lidocaine (Lidocaine 4% Cream 15 Gm Tube) 1 appln EXT QID PRN PRN Reason: Pain Stop: 10/30/20 13:19 Last Admin: 10/01/20 09:13 Dose: 1 appln Documented by: Lidocaine (Lidocaine 5% 1 Patch) 1 patch TD DAILY@1700 [facility] Stop: 10/30/20 16:59 Last Admin: 10/01/20 15:51 Dose: 1 patch Documented by: Magnesium Oxide (Magnesium Oxide 400 Mg Tab) 400 mg PO MoWeFr [facility] Stop: 10/26/20 08:59 Last Admin: 09/30/20 08:04 Dose: 400 mg Documented by: Miconazole Nitrate (Miconazole Nitrate Powder 43 Gm) 1 appln EXT PRN PRN PRN Reason: Affected Skin Folds Stop: 10/23/20 23:27 Miscellaneous (Remove Lidoderm Patch) 1 ea N/A DAILY@0500 [facility] Stop: 10/30/20 16:58 Last Admin: 10/02/20 05:46 Dose: 1 ea Documented by: Miscellaneous Information (Piperacill/Tazobac Consult Active) 1 ea N/A UD PRN PRN Reason: Consult Stop: 10/29/20 09:43 Morphine Sulfate (Morphine Sulfate 4 Mg/Ml 1 Ml Carp\Vial) 4 mg IV Q4H PRN PRN Reason: Pain Stop: 10/08/20 22:18 Last Admin: 09/30/20 11:24 Dose: 4 mg Documented by: Ondansetron HCl (Ondansetron Inj 2 Mg/Ml 2 Ml Vial) 4 mg IV Q6H PRN PRN Reason: Nausea Stop: 10/23/20 21:43 Last Admin: 10/02/20 08:32 Dose: 4 mg Documented by: Oxycodone HCl (Oxycodone Hcl Ir 5 Mg Tab (Immediate Release)) 5 - 10 mg PO QID PRN PRN Reason: Pain Stop: 10/08/20 22:18 Last Admin: 10/01/20 20:50 Dose: 10 mg Documented by: Pantoprazole Sodium (Pantoprazole 40 Mg Tab) 40 mg PO QPM [facility] Stop: 10/23/20 21:44 Last Admin: 10/01/20 20:46 Dose: 40 mg Documented by: Polyethylene Glycol (Polyethylene (Miralax) 17 Gm Pack) 17 gm PO DAILY [facility] Stop: 10/26/20 11:29 Last Admin: 10/02/20 09:27 Dose: 17 gm Documented by: Pyridoxine HCl (Pyridoxine Hcl 50 Mg Tab) 100 mg PO QAM [facility] Stop: 10/24/20 08:59 Last Admin: 10/02/20 09:27 Dose: 100 mg Documented by: Tamsulosin HCl (Tamsulosin Hcl 0.4 Mg Cap) 0.4 mg PO [facility] Stop: 10/23/20 21:43 Last Admin: 10/01/20 20:46 Dose: 0.4 mg Documented by: Tizanidine HCl (Tizanidine Hcl 4 Mg Tablet) 8 mg PO HS [facility] Stop: 10/23/20 21:43 Last Admin: 10/01/20 20:46 Dose: 8 mg Documented by: Triamcinolone Acetonide (Triamcinolone Acet 0.025% Cr 15 Gm Tube) 1 appln EXT BID [facility] Stop: 10/26/20 20:59 Last Admin: 10/02/20 09:54 Dose: 1 appln Documented by: (1) Hematoma of right iliopsoas muscle Encounter type: initial encounter Qualified Code(s): S70.11XA - Contusion of right thigh, initial encounter (2) Abdominal pain Abdominal location: left lower quadrant Qualified Code(s): R10.32 - Left lower quadrant pain
[2020-10-02] MEDS: D5NSS + 20MEQ KCL 20 MEQ/1,000 ML BAG IV SCH (14:51)
[2020-10-02] MEDS: LIDOCAINE 5% 1 PATCH TD SCH (16:05)
[2020-10-02] MEDS: PANTOprazole 40 MG TAB PO SCH (21:56)
[2020-10-02] MEDS: TAMSULOSIN HCL 0.4 MG CAP PO SCH (21:56)
[2020-10-02] MEDS: oxyCODONE HCL IR 5 MG TAB (IMMEDIATE RELEASE) PO PRN (21:56)
[2020-10-02] MEDS: tiZANidine HCL 4 MG TABLET PO SCH (21:57)
[2020-10-03] MEDS: ACETAMINOPHEN 325 MG TAB PO SCH ×3 (03:27→16:32)
[2020-10-03] MEDS: PIPERACILLIN/TAZOBACTAM 3.375 GM in DEXTROSE 5% 100 ML IV SCH (06:31)
[2020-10-03] MEDS: D5NSS + 20MEQ KCL 20 MEQ/1,000 ML BAG IV SCH (06:32)
[2020-10-03 07:42] LABS: Basophils # (auto) 0.01 K/uL (0-0.2); Basophils % (auto) 0.2 %; Eosinophils # (auto) 0.11 K/uL (0-0.5); Eosinophils % (auto) 2.1 %; Hematocrit (blood only) 25.9 % (42-52); Hemoglobin 7.6 g/dL (14.0-18.0); Immature Granulocytes # (auto) 0.01 K/uL (0.00-0.02); Immature Granulocytes % (auto) 0.2 %; Lymphocytes # (auto) 0.86 K/uL (1.2-3.4); Lymphocytes % (auto) 16.4 %; Mean Corpuscular Hemoglobin 23.6 pg (25-34); Mean Corpuscular Hgb Conc 29.3 g/dL (32-36); Mean Corpuscular Volume 80.4 fL (80-100); Monocytes # (auto) 0.54 K/uL (0.11-0.59); Monocytes % (auto) 10.3 %; Neutrophils # (auto) 3.71 K/uL (1.4-6.5); Neutrophils % (auto) 70.8 %; Platelet Count 342 K/uL (130-400); RDW Coefficient of Variation 17.1 % (11.5-14.5); RDW Standard Deviation 50.3 fL (36.4-46.3); Red Blood Count 3.22 M/uL (4.7-6.1); White Blood Count 5.24 K/uL (4.8-10.8)
[2020-10-03 08:00] LABS: Albumin Level 2.1 gm/dl (3.4-5.0); BUN Creatinine Ratio 23.9 (10-20); Calcium 8.4 mg/dl (8.5-10.1); Creatinine Clr Calc Pharmacy 225.4 ml/min; Est GFR (African American) 145.8 ml/min; Est GFR (Non-African American) 125.8 ml/min; Potassium 4.2 mmol/L (3.5-5.1)
[2020-10-03 08:03] LABS: Albumin Globulin Ratio 0.5 (0.9-2); Bilirubin,Total 0.3 mg/dl (0.2-1); Globulin 4.3 gm/dl (2.5-4.0); Total Protein 6.4 gm/dl (6.4-8.2)
[2020-10-03 08:05] LABS: Hypochromasia Present; Microcytosis Present
[2020-10-03] MEDS: POLYETHYLENE (MIRALAX) 17 GM PACK PO SCH (08:47)
[2020-10-03] MEDS: DOCUSATE SODIUM 100 MG CAP PO SCH (08:47)
[2020-10-03] MEDS: MAGNESIUM OXIDE 400 MG TAB PO SCH (08:48)
[2020-10-03] MEDS: PYRIDOXINE HCL 50 MG TAB PO SCH (08:48)
--- NOTE | 2020-10-03 09:24 | Surgery Progress Note ---
Date of Service October 03, 2020 Assessment & Plan (1) Retroperitoneal hemorrhage: Plan: hemodynamically stable hemoglobin stable 7.6 today (7.3-->7.4 ) abdomen is soft, nontender today Plan: No acute surgical intervention required at this time as hemoglobin stable and hematoma stable on multiple repeat CT scans Informed patient that this could take months to completely resolve. (2) Abdominal pain: Plan: abdominal spasms, pain mostly on left side Likely combination of constipation and abdominal spasms from his spinal tumors Consider muscle relaxant for muscle spasms?, will defer to medicine team Should follow-up with his spine surgeon (3) Constipation: Plan: + bowel function after enema administration Needs bowel regimen regularly, would recommend bowel regimen as per GI recommendations No surgical interventions required at this time our services signing off, please call with questions or concerns Dr. Kate was present during my examination and agrees with above. Admission and Anticipated Discharge Date Admission Date: September 25, 2020 Subjective feeling better still having abdominal spasms tolerating full liquids with some nausea but no vomiting wants cereal, appetite is a little better passing gas, no bowel movement since enemas on Saturday Physical Exam Constitutional: WD/WN, vitals as above no acute distress and not ill appearing Respiratory: normal respiratory effort; no respiratory distress and no labored breathing Gastrointestinal (Abdomen): Inspection/Auscultation: abdomen normal to inspection and normal bowel sounds; abdomen not distended Percussion/Palpation: abdomen soft; abdomen nontender, no guarding and abdomen not rigid Psychiatric: A+Ox3, euthymic affect [facility]) Vital Signs (Past 12 Hours) Vital Signs Temp Pulse Pulse Resp BP Pulse Ox 10/03/20 07:56 37.0 C 77 95 H 112/67 95 10/03/20 03:00 36.7 C 79 18 92/52 L 98 10/02/20 23:00 36.9 C 73 20 91/49 L 96 10/02/20 22:20 72 Laboratory Results 10/03/20 10/03/20 10/03/20 Range/Units 08:09 07:22 07:22 WBC 5.24 (4.8-10.8) K/uL RBC 3.22 L (4.7-6.1) M/uL Hgb 7.6 L (14.0-18.0) g/dL Hct 25.9 L (42-52) % MCV 80.4 (80-100) fL MCH 23.6 L (25-34) pg MCHC 29.3 L (32-36) g/dL RDW Std Deviation 50.3 H (36.4-46.3) fL RDW Coeff of Brendon 17.1 H (11.5-14.5) % Plt Count 342 (130-400) K/uL MPV 9.0 (7.4-10.4) fL Immature Gran % (Auto) 0.2 % Neut % (Auto) 70.8 % Lymph % (Auto) 16.4 % [place] % (Auto) 10.3 % Eos % (Auto) 2.1 % Baso % (Auto) 0.2 % Neut # (Auto) 3.71 (1.4-6.5) K/uL Lymph # (Auto) 0.86 L (1.2-3.4) K/uL [place] # (Auto) 0.54 (0.11-0.59) K/uL Eos # (Auto) 0.11 (0-0.5) K/uL Baso # (Auto) 0.01 (0-0.2) K/uL Immature Gran # (Auto) 0.01 (0.00-0.02) K/uL Hypochromasia Present Microcytosis Present Sodium 139 (136-145) mmol/L Potassium 4.2 (3.5-5.1) mmol/L Chloride 108 H (98-107) mmol/L Carbon Dioxide 27 (21-32) mmol/L Anion Gap 5.0 (3-11) BUN 12 (7-18) mg/dl Creatinine 0.48 L (0.6-1.4) mg/dl Est Cr Clr Drug Dosing 225.4 ml/min Est GFR ( Amer) 145.8 ml/min Est GFR (Non-Af Amer) 125.8 ml/min BUN/Creatinine Ratio 23.9 H (10-20) Glucose 106 H (70-99) mg/dl Calcium 8.4 L (8.5-10.1) mg/dl Iron 24 L (35-175) mcg/dl Total Bilirubin 0.3 (0.2-1) mg/dl AST 17 (15-37) U/L ALT 21 (12-78) U/L Alkaline Phosphatase 75 (45-117) U/L Total Protein 6.4 (6.4-8.2) gm/dl Albumin 2.1 L (3.4-5.0) gm/dl Globulin 4.3 H (2.5-4.0) gm/dl Albumin/Globulin Ratio 0.5 L (0.9-2) Vitamin B12 Pending (1) Abdominal pain Abdominal location: left lower quadrant Qualified Code(s): R10.32 - Left lower quadrant pain
--- NOTE | 2020-10-03 10:41 | Hospitalist Progress Note ---
Date of Service October 03, 2020 Assessment & Plan (1) Retroperitoneal hemorrhage: Plan: Presented with cramping abdominal pain as below and noted to have A moderate right iliopsoas/retroperitoneal hematoma. Slight improvement in the heterogeneous abnormality/inflammatory process within the right lateral abdominal wall and right hip musculature on CT of the abdomen and pelvis General surgery at [facility] [place] did not recommend transfer Hg stable at 7.[address] of the abdomen and pelvis has been showing improvement of the hematoma -- Iron 24 will give Venofer 1 dose (2) Hematoma of right iliopsoas muscle: Plan: As above (3) Abdominal pain: Plan: Left lower quadrant abdominal pain-likely complicated by constipation likely secondary to Constipation, possible GI Spasm, abdominal wall muscular pain? CT abdomen pelvis: Improving/stable retroperitoneal hematoma, mild fecal retention, no obstruction resolving with BM advanced to soft diet Fever Possible source sacral and buttock wound, Pseudomonas CT abdomen pelvis not demonstrating intra-abdominal infection or abscess Blood cultures: negative so far Wound culture: Pseudomonas Urinalysis negative CX-ray negative MRSA nasal swab negative afebrile since yesterday wound healing slowly change Zosyn to Cefepime IV ID consulted R Leg Edema -- Doppler US: pending hold Lasix for marginal BP Rash denies any itchiness on topical steroid BID -- resolved History of ependymoma: Chronic paraplegia: Spastic hemiparesis: Status post surgical resection and XRT in the 1990s Continue tizanidine at bedtime Continue f/u with neurosurgery Anemia: Anemia of acute blood loss H/O iron deficiency Hgb: 11 on admission, Baseline ~10 -- Hg stable at ~8 x few days Hemoglobin is 7.6 Iron 24 Venofer ordered GERD: continue PPI DVT prophylaxis: SCDs in light of retroperitoneal hematoma Full Code Disposition possible d/c to Acute Rehab when medically stable Admission and Anticipated Discharge Date Admission Date: September 25, 2020 Subjective ff up for retroperitoneal hemorrhage, abdominal pain, etc seen resting in bed, comfortable states he had lower abd cramps last night but otherwise feels better overall no R sided abd pain tolerated breakfast well reports R leg edema, no pain no other symptoms Review of Systems Review of Systems: all noted and negative except for above Physical Exam Physical Exam: General- oriented x 3, not in distress, speaks in sentences with no effort or accessory muscle use Eyes- anicteric Neck- no JVD Lungs- clear BS BL no rales/wheezing Heart- normal rate, regular rhythm; no murmurs Abdomen- normal bowel sounds, nondistended, soft, nontender Buttock - wound healing, less erythema Extremities- no pretibial edema, no calf tenderness (+) R lower leg edema: moderate; no erythema, warmth, tenderness Neuro- alert, oriented x 3; no gross focal neurologic deficits Skin- warm & dry Results & Data Results & Data ([facility]) Vital Signs (Past 12 Hours) Vital Signs Temp Pulse Pulse Resp BP Pulse Ox 10/03/20 08:00 79 10/03/20 07:56 37.0 C 77 95 H 112/67 95 10/03/20 03:00 36.7 C 79 18 92/52 L 98 10/02/20 23:00 36.9 C 73 20 91/49 L 96 all noted and reviewed including below (1) Hematoma of right iliopsoas muscle Encounter type: initial encounter Qualified Code(s): S70.11XA - Contusion of right thigh, initial encounter (2) Abdominal pain Abdominal location: left lower quadrant Qualified Code(s): R10.32 - Left lower quadrant pain
[2020-10-03] MEDS: TRIAMCINOLONE ACET 0.025% CR 15 GM TUBE EXT SCH (10:43)
[2020-10-03] MEDS ORDERED: CEFEPIME CONSULT ACTIVE PRN (10:58)
--- NOTE | 2020-10-03 11:24 | Ultrasound Report ---
ULTRASOUND RIGHT LOWER EXTREMITY VENOUS CLINICAL HISTORY: Right lower extremity edema. COMPARISON STUDY: No priors. TECHNIQUE: Real-time, grayscale, and color Doppler sonography of the deep veins of the right lower ex tremity was performed from the inguinal crease to the calf. Compression and augmentation were utilize d. FINDINGS: There is extensive nearly occlusive to occlusive deep venous thrombosis throughout the righ t lower extremity. This extends from the proximal superficial femoral distally into the calf. The com mon femoral vein is patent and normally compressible. The greater saphenous vein and the profunda fem linda vein at the junction with the common femoral vein are clear. Lower extremity soft tissue edema i s noted. IMPRESSION: Extensive nearly occlusive to occlusive deep venous thrombosis throughout the right lower extremity as above. ACT 112: Negative or not required by law. Electronically signed by: Juan F Sampson M.D. 10/03/2020 11:22 AM
[2020-10-03] MEDS ORDERED: ADVANCED PROBIOTIC 1250 MG CAPSULE PO SCH (12:00)
[2020-10-03] MEDS ORDERED: IRON SUCROSE 150 MG in SODIUM CHLORIDE 0.9% 250 ML IV ONE (14:00)
[2020-10-03] MEDS ORDERED: CEFEPIME 2,000 MG in SYRINGE 0 ML IV SCH (15:00)
[2020-10-03] MEDS: LIDOCAINE 5% 1 PATCH TD SCH (16:32)
--- NOTE | 2020-10-03 16:35 | Discharge Summary ---
Date of Service October 03, 2020 Admission HPI Per Admitting Provider Pt is 55 y/o M with PMH cervical ependymoma status post surgical resection x2 and XRT with residual paraparesis and spastic hemiplegia, wheelchair-bound, iron deficiency anemia, GERD, obesity who presents ED with c/o abdominal pain today. Pt with recent admission and transfer to [facility] with discharge from there yesterday for Abnormal MRI of the abdomen with findings of 11.3 x 4.2 x 8.2 cm collection within right anterior abdominal wall which shows peripheral enhancement after intravenous contrast administration concerning for abscess. 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 No evidence of osteomyelitis. At [facility] was initially treated with IV antibiotics. At [facility] was evaluated by ID and IV antibiotics were discontinued. IR reviewed image, noted to have only necrosis, no evidence of abscess to drain. Surgery was also consulted, imaging finding were likely due to pressure injury to his muscles, therefore no surgical intervention was recommended. blood culture remained negative. Was also seen by rheum and ortho for R hip joint effusion on imaging, effusion too small for aspiration, septic or rheumatological process was not anticipated by ortho and rheum. It was also discussed with [facility] radiologist but it was too small effusion. He was also seen by neurosurgery for worsening weakness of lower extremities, MRI was with chronic changes, no any acute intervention was recommended by neurosurgery, has outpatient follow up scheduled Today c/o cramping type pain across abdomen. Reports past week has had constipation while hospitalized. Yesterday at home he did have bowel movement. Denies dysuria, hematuria. Patient uses wheelchair and has difficulty getting up to use toilet. He reports irritated skin to groin and buttocks. Patient reports some nausea today. Denies vomiting. Patient is not on any chronic anticoagulation. Was receiving VTE prophylaxis while in hospital. Denies fever or chills, diaphoresis, melena, hematochezia WINTERS, dizziness, syncope, vision changes, neck pain, CP, SOB, orthopnea, palpitations, cough, sore throat, choking, otalgia, rhinorrhea, paresthesias, weakness, extremity weakness, extremity edema, rashes. Today in ER patient afebrile, vital stable. CT abdomen pelvis was obtained showing Interval development of a moderate right iliopsoas/retroperitoneal hematoma. Slight improvement in the heterogeneous abnormality/inflammatory process within the right lateral abdominal wall and right hip musculature. Stable mild splenomegaly. Cholelithiasis. ER physician spoke to general surgeon at [facility] who recommended that patient did not require transfer to at this time. Patient being admitted for further evaluation and observation Principal Diagnosis RIGHT LOWER EXTREMITY DVT RETROPERITONEAL HEMORRHAGE ILIOPSOAS HEMORRHAGE Discharge Exam General- oriented x 3, not in distress, speaks in sentences with no effort or accessory muscle use Eyes- anicteric Neck- no JVD Lungs- clear BS BL no rales/wheezing Heart- normal rate, regular rhythm; no murmurs Abdomen- normal bowel sounds, nondistended, soft, nontender Buttock - wound healing, less erythema Extremities- no pretibial edema, no calf tenderness (+) R lower leg edema: moderate; no erythema, warmth, tenderness Neuro- alert, oriented x 3; no gross focal neurologic deficits Skin- warm & dry Discharge Data Allergies Allergy/AdvReac Type Severity Reaction Status Date / Time vancomycin Allergy Severe Rash Verified 09/23/20 16:42 amantadine AdvReac Severe CHEST Verified 09/23/20 21:48 PAIN, ANXIETY Consultations 09/23/20 14:53 ED Decision to Admit Stat 09/23/20 21:44 Consult General Surgery Routine 09/28/20 09:52 Consult Gastroenterology Routine 09/30/20 10:40 Consult Infectious Diseases Routine 10/03/20 16:13 Burn CD for patient Routine Procedures Performed Operation Date: 10/04/20 08:00 <No data on this case meets the specified criteria> Ordered Studies 09/23/20 10:27 CT abd pelvis IV con only Stat 09/24/20 07:47 CT abd pelvis wo con Routine 09/24/20 22:47 CT abd pelvis IV con only Urgent 09/26/20 10:52 CT abd pelvis wo con Routine 09/29/20 14:42 CT abd pelvis IV con only Stat 10/03/20 10:02 US venous doppler LE RT Stat Hospital Course (1) Retroperitoneal hemorrhage: per Dr. Tellez's notes: Present no admission with cramping abdominal pain CT abd/pelvis showed CT abdomen pelvis was obtained showing Interval development of a moderate right iliopsoas/retroperitoneal hematoma. Slight improvement in the heterogeneous abnormality/inflammatory process within the right lateral abdominal wall and right hip musculature. ER physician spoke to general surgeon at [facility] who recommended that patient did not require transfer to at this time. Hgb dropped to 8.9, then increased to 9.3 then 8.[address] abd/pelvis today showed large intramuscular hemorrhage of the right psoas muscle has not appreciably changed from yesterday.Retroperitoneal extension of hemorrhage has minimally increased from yesterday. Surgery on board repeat CT on 09/26 showed stable size of the large intramuscular hemorrhage of the right psoas muscle which extends to the peritoneal cavity is unchanged since prior study yesterday. Stable appearance of the edema of the right lateral abdominal wall. Small hemorrhagic cyst within the right renal cortex. No surgical intervention required at this time as per surgery 10/03 Hg decreased from 10 to ~[address] abd 09/29: stable hematoma no right sided abdominal pain L sided abdominal pain resolving with BM advance diet to soft Right Lower Extremity DVT - diagnosed 10/03/20 - cannot anticoagulate secondary to above - discussed with Dr. Alex [employer]- recommend IVC filter - awaiting transfer to [place] if patient still here in AM, Dr. Fagan will perform IVC filter placement and transfer will be cancelled (2) Hematoma of right iliopsoas muscle: As above (3) Abdominal pain: Left lower quadrant abdominal pain-likely complicated by constipation likely secondary to Constipation, possible GI Spasm, abdominal wall muscular pain? CT abdomen pelvis: Improving/stable retroperitoneal hematoma, mild fecal retention, no obstruction resolving with BM advanced to soft diet Fever Possible source sacral and buttock wound, Pseudomonas CT abdomen pelvis not demonstrating intra-abdominal infection or abscess Blood cultures: negative so far Wound culture: Pseudomonas Urinalysis negative CX-ray negative MRSA nasal swab negative afebrile since yesterday wound healing slowly change Zosyn to Cefepime IV ID consulted Rash denies any itchiness on topical steroid BID -- resolved History of ependymoma: Chronic paraplegia: Spastic hemiparesis: Status post surgical resection and XRT in the Continue tizanidine at bedtime Continue f/u with neurosurgery Anemia: Anemia of acute blood loss H/O iron deficiency Hgb: 11 on admission, Baseline ~10 -- Hg stable at ~8 x few days Hemoglobin is 7.6 Iron 24 Venofer ordered GERD: continue PPI DVT prophylaxis: SCDs in light of retroperitoneal hematoma Full Code Disposition transfer to [facility] plan of care discussed with patient in detail and at length all questions answered he is understanding, agreeable, comfortable with the plan of care Total Time Total Time Spent Total Time Spent (In Minutes): 60 minutes Discharge Plan Discharge Items Patient Disposition: Transfer Acute Care Hospital Reason For Visit: ABD PAIN Discharge Diagnosis: RIGHT LOWER EXTREMITY DVT ILIOPSOAS AND RETROPERITONEAL HEMORRHAGE Activity: Resume your previous activity Non-emergency contact: Primary Care Provider Call non-emergency contact if: you have any medication questions, your symptoms worsen, your pain is not controlled, your pain is worsening, your pain is unusual for you and your pain is concerning for you Follow-up/Referrals: Alexis Yost MD [Primary Care Provider] - Diet: Heart Healthy Addtl Attending Provider Instructions: PLEASE REFER TO HOSPITAL DISCHARGE SUMMARY. Pending Studies at Discharge: No Stand-Alone Forms: My [facility] Skilled Items Patient informed of condition?: Yes DNR: No Discharge Level of Care: Other Communicable Disease: No Discharge Prognosis: Stable Lines: Peripheral IV Urinary Catheter: No Medications and DC Order Prescriptions: New lidocaine 5 % Adhesive Patch,Medicated 1 patch transdermal DAILY@1700 Qty: 15 RF: 0 docusate sodium 100 mg Capsule 100 mg PO BID Qty: 30 RF: 0 Advanced Probiotic 625 mg (10 billion cell) Capsule 2 cap PO DAILY Qty: 30 RF: 0 triamcinolone acetonide 0.025 % Cream 1 applic EXT BID 7 Days RF: 0 Continued ascorbic acid (vitamin C) [Vitamin C] 1,000 mg Tablet 1 g PO QAM RF: 0 tizanidine 4 mg Tablet 8 mg PO HS RF: 0 pyridoxine (vitamin B6) 100 mg Tablet 100 mg PO QAM RF: 0 magnesium oxide 400 mg magnesium Tablet 400 mg PO 3XWK RF: 0 omeprazole 40 mg Capsule,Delayed Release(Dr/Ec) 40 mg PO QPM RF: 0 tamsulosin 0.4 mg Capsule 0.4 mg PO HS RF: 0 acetaminophen [Tylenol] 325 mg Capsule 650 mg PO Q6H PRN (Reason: Pain) RF: 0 diphenhydramine-acetaminophen [Tylenol PM Extra Strength] 25-500 mg Tablet 2 tab PO HS RF: 0 Discontinued furosemide 40 mg tablet 40 mg PO DAILY RF: 0 Admission Data Admit Date/Time: 09/25/20 17:36 Attending Provider: Vaughn Raya Admit Provider: Leonardo Tellez Primary Care Provider: Alexis Yost Other Providers: Leonardo Tellez ; [facility] ; Batsheva Ralph ; Lul Braden ; Michael Saenz ; Dieudonne Tanner ; Julio St I. ; Pepe Kincaid II ; Shanda Newell ; Sacha Paul ; Vaughn Raya ; Wale Lopes
== END 2020-10-03 19:53 | disposition short-term general hospital (02) | DRG 394 ==
LOC: 2N 09:10 → ED 09:10 → 2N 21:21 → SUATTDRO 09-25 17:36
DX: Z98.890 Other specified postprocedural states; R58 Hemorrhage, not elsewhere classified; Z87.11 Personal history of peptic ulcer disease; S31.809A Unspecified open wound of unspecified buttock, initial encounter; M62.89 Other specified disorders of muscle; R11.0 Nausea; X58.XXXA Exposure to other specified factors, initial encounter; R50.9 Fever, unspecified; M79.81 Nontraumatic hematoma of soft tissue; I82.401 Acute embolism and thrombosis of unspecified deep veins of right lower extremity; K21.9 Gastro-esophageal reflux disease without esophagitis; K59.00 Constipation, unspecified; G82.20 Paraplegia, unspecified; K66.1 Hemoperitoneum; Z79.899 Other long term (current) drug therapy; D62 Acute posthemorrhagic anemia; G81.10 Spastic hemiplegia affecting unspecified side; Z88.1 Allergy status to other antibiotic agents; B96.5 Pseudomonas (aeruginosa) (mallei) (pseudomallei) as the cause of diseases classified elsewhere; Z99.3 Dependence on wheelchair; Z88.8 Allergy status to other drugs, medicaments and biological substances; K31.89 Other diseases of stomach and duodenum; R21 Rash and other nonspecific skin eruption; S31.000A Unspecified open wound of lower back and pelvis without penetration into retroperitoneum, initial encounter

== ENCOUNTER 2021-12-08 17:12 | Inpatient (IN) ==
[2021-12-08 18:07] LABS: Basophils # (auto) 0.01 K/uL (0-0.2); Basophils % (auto) 0.1 %; Eosinophils # (auto) 0.01 K/uL (0-0.50); Eosinophils % (auto) 0.1 %; Hematocrit (blood only) 31.2 % (40.1-51.0); Hemoglobin 10.1 g/dl (14.0-18.0); Immature Granulocytes # (auto) 0.07 K/uL (0.00-0.02); Immature Granulocytes % (auto) 0.7 %; Lymphocytes # (auto) 0.58 K/uL (1.2-3.4); Lymphocytes % (auto) 6.1 %; Mean Corpuscular Hemoglobin 26.6 pg (25.0-34.0); Mean Corpuscular Hgb Conc 32.4 g/dL (32.0-36.0); Mean Corpuscular Volume 82.3 fL (80.0-100.0); Mean Platelet Volume 9.3 fL (9.4-12.4); Monocytes # (auto) 0.87 K/uL (0.24-0.82); Monocytes % (auto) 9.2 %; Neutrophils # (auto) 7.95 K/uL (1.4-6.5); Neutrophils % (auto) 83.8 %; Platelet Count 352 K/uL (130-400); RDW Coefficient of Variation 15.3 % (11.5-14.5); RDW Standard Deviation 46.5 fL (36.4-46.3); Red Blood Count 3.79 M/uL (4.63-6.08); White Blood Count 9.49 K/ul (4.8-10.8)
[2021-12-08 18:20] LABS: INR 1.1 (0.9-1.1); Partial Thromboplastin Ratio 1.2
[2021-12-08 18:23] LABS: Alanine Aminotransferase 16 U/L (7-52); Albumin Globulin Ratio 0.8 (0.9-2); Albumin Level 3.4 gm/dl (3.4-5.0); Alkaline Phosphatase 60 U/L (34-104); Anion Gap 9 (3-11); Aspartate Aminotransferase 12 U/L (13-39); BUN Creatinine Ratio 24.2 (10-20); Bilirubin,Total 0.3 mg/dl (0.2-1.0); Blood Urea Nitrogen 16 mg/dl (6-23); Carbon Dioxide 26 mmol/L (21-32); Chloride 101 mmol/L (98-107); Est GFR (Non-African American) 109.6 ml/min; Globulin 4.1 gm/dl (2.5-4.0); Glucose 136 mg/dl (70-99(Fasting)); Magnesium 2.1 mg/dl (1.7-2.4); Potassium 3.6 mmol/L (3.5-5.1); Sodium 136 mmol/L (136-145); Total Protein 7.5 gm/dl (6.0-8.3)
[2021-12-08] MEDS ORDERED: CEFEPIME 2,000 MG/20 ML VIAL IV STA (19:01)
[2021-12-08] MEDS ORDERED: DAPTOmycin 350 MG in SYRINGE 0 ML IV SCH (19:45)
--- NOTE | 2021-12-08 21:43 | History and Physical Report ---
DATE OF ADMISSION: 12/08/2021. CHIEF COMPLAINT: Bilateral elbow wounds. HISTORY OF PRESENT ILLNESS: A 56-year-old male with past medical history significant for cervical ependymoma, status post surgical resection x2 and radiation treatment with residual paraparesis and spastic hemiplegia, wheelchair bound, iron-deficiency anemia, GERD, history of DVT, history of pulmonary hypertension, presents with bilateral elbow wounds. The patient says he has been having elbow wounds since last August. He is following with wound clinic and orthopedics. He was placed on wound VAC and the wound VAC was removed yesterday. He went to the wound care clinic today, but it was not replaced again. He was in the ER on 12/05/2021 and discharged on Levaquin and amoxicillin because the wounds were draining more, but he is not getting better. The left elbow is draining more. He has some fevers at home; that is the reason he came to the ER again today. Denies any headache. No blurred visions. On and off, he has ringing noise in the ears. No runny nose, no sore throat. No cough. Appetite is down in the last few days. No difficulty swallowing. No chest pain, no shortness of breath, no nausea, no abdominal pain. Normal bowel and bladder movements. Sometimes constipated. Stools are always dark for some time now. Hemodynamics are stable. ALLERGIES: VANCOMYCIN AND AMANTADINE. PAST MEDICAL HISTORY: As mentioned above. PAST SURGICAL HISTORY: EGD, IVC filter, spine surgery. MEDICATIONS: The patient is on Tylenol 650 mg p.o. daily p.r.n., amoxicillin 500 mg p.o. q.8 hours, Eliquis 2.5 mg p.o. b.i.d., ascorbic acid 1 g p.o. daily, Tylenol PM 2 tablets p.o. at bedtime, Lasix 20 mg p.o. daily p.r.n., gabapentin 100 mg p.o. b.i.d., Levaquin 750 mg p.o. daily, magnesium oxide 400 mg p.o. every other day, omeprazole 40 mg p.o. daily, B6 of 200 mg p.o. daily, Flomax 0.4 mg p.o. at bedtime, tizanidine 8 mg p.o. at bedtime. FAMILY HISTORY: Significant for father has abdominal aortic aneurysms and hypertension; mother has Alzheimer disease and liver disease. SOCIAL HISTORY: , no smoking, no alcohol, no drug use. REVIEW OF SYSTEMS: As per HPI. Rest of the review of systems is negative. PHYSICAL EXAMINATION: GENERAL: The patient is of moderate build, not in acute distress. VITAL SIGNS: Temperature 37.1, pulse 99, respiratory rate 18, blood pressure 102/62, oxygen 97% on room air. HEENT: Pupils equal, round and reactive to light. Oral mucosa moist. NECK: No JVD, no neck masses. CARDIOVASCULAR: S1 and S2 heard. Regular rate and rhythm. No murmur, no gallop. RESPIRATORY SYSTEM: Normal AP diameter. No accessory muscle use. No wheezing, no crackles. ABDOMEN: Soft, bowel sounds present, nontender, no distention. CENTRAL NERVOUS SYSTEM: Alert and awake. No facial droop. Speech is clear. Obeys simple commands. EXTREMITIES: Bilateral elbow wounds, deep wounds with drainage seen, some erythema surrounding the wounds. No lower extremity edema seen. LABORATORY DATA: WBC is 9.4, hemoglobin 10.1, hematocrit 31.2, platelets 352. PT 11.2, INR 1.1, APTT 34. Sodium 136, potassium 3.6, chloride 101, bicarbonate 26, BUN 16, creatinine 0.6, serum glucose 136, calcium 9, magnesium 2.1, total bilirubin 0.3, AST 12, ALT 16, alkaline phosphatase 60. SARS-CoV-2 rapid test negative. ELECTROCARDIOGRAM: Accelerated junctional rhythm at a rate of 93. ASSESSMENT AND PLAN: This is a 56-year-old male who presents with bilateral elbow wounds. 1. Bilateral elbow wounds. Failed outpatient treatment. Empirically starting on daptomycin and Zosyn. Follow the cultures. Wound care consult and orthopedics consult. Monitor in the medical floor. 2. History of cervical ependymoma, status post surgical resection x2 and radiation treatment, residual paraparesis and spastic hemiplegia, wheelchair bound. 3. Iron-deficiency anemia. Hemoglobin of 10.1. Fllow up with primary care physician. 4. History of deep venous thrombosis, on Eliquis. 5. Gastroesophageal reflux disease, on omeprazole. 6. Benign prostatic hyperplasia, on Flomax. 7. Muscle spasticity. Continue home medications. 8. Deep venous thrombosis prophylaxis, on Eliquis. DISPOSITION: Closely monitor in the medical floor. Social service to help with discharge planning. Level 1, full code. Job ID: [id number]
[2021-12-08] MEDS ORDERED: tiZANidine HCL 4 MG TABLET PO SCH (22:24)
[2021-12-08] MEDS ORDERED: FUROSEMIDE 20 MG TAB PO PRN (22:24)
[2021-12-08] MEDS ORDERED: POLYETHYLENE (MIRALAX) 17 GM PACK PO PRN (22:24)
[2021-12-08] MEDS ORDERED: MENTHOL-ZINC OXIDE 360 APPLN/120 GM TUBE EXT PRN (22:24)
[2021-12-08] MEDS: TAMSULOSIN HCL 0.4 MG CAP PO SCH (23:18)
[2021-12-08] MEDS: ACETAMINOPHEN 500 MG TAB PO SCH (23:21)
[2021-12-08] MEDS: diphenhydrAMINE Capsule 25 MG CAP PO SCH (23:22)
[2021-12-08] MEDS: APIXABAN 2.5 MG TAB PO SCH (23:22)
[2021-12-08] MEDS: GABAPENTIN 100 MG CAP PO SCH (23:22)
[2021-12-08] MEDS ORDERED: PIPERACILLIN/TAZOBACTAM 4.5 GM in DEXTROSE 5% 100 ML IV ONE (23:30)
--- NOTE | 2021-12-09 01:48 | Emergency Department Note ---
History of Present Illness General Chief complaint: Infection Stated complaint: ELBOW INFECTION Time Seen by Provider: 12/08/21 18:54 History of Present Illness Provider complaint: Left elbow infection Onset (ago): week(s) 1 Location: upper extremity and left Radiation: non-radiation Maximum Pain Intensity: 3 Current Pain Intensity: 3 Quality: + aching, + sharp and + dull Relieved By: + none Exacerbated By: + none Associated symptoms: no chest pain, no fever/chills, no headaches, no nausea/vomiting or no shortness of breath 56-year-old male presents emergency department for left elbow infection. Patient was seen by me 3 days ago for similar symptoms. Patient states he went to his wound care appointment today and they were able to express some pus and then became concerned and thought that the patient should be admitted as they do not think the antibiotics to Levaquin and Bactrim are helping. No fevers. Home Medications Medication Instructions Recorded Confirmed Type ascorbic acid (vitamin C) 1,000 mg 1 g PO QAM 07/09/18 12/08/21 History tablet (Vitamin C) magnesium oxide 400 mg PO Q OTHER DAY 07/09/18 12/08/21 History pyridoxine (vitamin B6) 100 mg 100 mg PO QAM 07/09/18 12/08/21 History tablet tizanidine 4 mg tablet 12 mg PO HS 07/09/18 12/08/21 History tamsulosin 0.4 mg capsule 0.4 mg PO HS 08/18/18 12/08/21 History acetaminophen 325 mg capsule 650 mg PO DAILY PRN Pain 09/18/18 12/08/21 History (Tylenol) diphenhydramine 25 2 tab PO HS sleep 09/11/20 12/08/21 History mg-acetaminophen 500 mg tablet (Tylenol PM Extra Strength) apixaban 2.5 mg tablet (Eliquis) 2.5 mg PO BID 10/26/21 12/08/21 History furosemide 20 mg tablet 20 mg PO DAILY PRN fluid 10/26/21 12/08/21 History accumulation or weight gain gabapentin 100 mg capsule 100 mg PO BID 10/26/21 12/08/21 History menthol 0.44 %-zinc oxide 20.6 % 1 applic topical QID PRN skin rash 10/26/21 12/08/21 History topical ointment (Calmoseptine) amoxicillin 500 mg capsule 500 mg PO Q8H #7 caps 12/05/21 12/08/21 Rx levofloxacin 750 mg tablet 750 mg PO DAILY 7 days #7 tabs 12/05/21 12/08/21 Rx omeprazole 40 mg capsule,delayed 40 mg PO DAILY 12/08/21 12/08/21 History release Allergies Allergy/AdvReac Type Severity Reaction Status Date / Time vancomycin Allergy Severe Rash Verified 12/08/21 19:30 amantadine AdvReac Severe CHEST Verified 12/08/21 19:30 PAIN, ANXIETY Past Med/Surg History Medical History Anemia iron deficiency Chronic neck pain Ependymoma GERD (gastroesophageal reflux disease) 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 History of gastric ulcer Left arm numbness chronic s/p left arm surgery Spastic hemiparesis 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 (no further details)- paralyzed from the chest down initially which significantly improved with (able to walk with crunches) with therapy, increased LE weakness 2007 and now patient wheelchair bound felt 2/2 nerve damage Surgical History H/O bursectomy left elbow H/O cervical spine surgery 1990 (benign cystectomy) + scar tissue removal H/O eye surgery foreign body (metal) removal from left eye History of esophagogastroduodenoscopy (EGD) EGD: 07/16/18: MAC sedation at [facility] Family History Father Hypertension Other No family history of adverse response to anesthesia Social History Smoking Status: Never smoker Second Hand Exposure: No; Hx Alcohol Use: No Hx Substance Use: No Preferred Language: Tamazight Communication Ability: Effective Anesthesia Director Required: No Beliefs That Will Affect Care: None Current Living Situation: Spouse Current Living Situation Comment: Lives with and daughter and 1 granddaughter current occupational status: disabled Feels Safe at Home: Yes Do you think of yourself as: straight/heterosexual Gender Identity: Male Assistive Devices: Wheelchair Review of Systems A total of 10 systems reviewed and were otherwise negative Physical Exam Vital Signs Vital Signs - 24 hr 12/08/21 17:16 Temperature 37.1 C Temperature Source Temporal Artery Scan Pulse Rate 99 H Respiratory Rate 18 Respiratory Effort / Characteristics Non-Labored Respiratory Depth Normal Blood Pressure 102/62 Blood Pressure Mean 75 Pulse Oximetry 97 Oxygen Delivery Method Room Air Sepsis Recent Fever Within 48 Hours No Sepsis New/Unexplained Change in Mental Status No Sepsis Action Taken by Nursing No Action Required Physical Exam GENERAL: Paraplegic in wheelchair HENT: Exam performed. - Head: Normocephalic and atraumatic. - Right Ear: External ear normal. No mastoid tenderness. - Left Ear: External ear normal. No mastoid tenderness. - Mouth/Throat: The oropharynx is clear and moist. No trismus in the jaw. No dental abscesses or uvula swelling. No oropharyngeal exudate or tonsillar absc esses. EYES: Conjunctivae and EOM are normal. Pupils are equal, round, and reactive to light. Right eye exhibits no discharge. Left eye exhibits no discharge. No scleral icterus. NECK: Normal range of motion. CV: Normal rate, regular rhythm, normal heart sounds and intact distal pulses. There is no peripheral edema. Palpable radial pulses bue. PULM/CHEST: Effort normal and breath sounds normal. No respiratory distress. No stridor. He has no wheezes. He has no rales. - Chest Wall: He exhibits no tenderness. ABD: The abdomen is soft. MUSC/SKEL: Over the left elbow there is erythema and warmth with discharge that is able to be expressed from the wound. There is full range of motion of the left elbow. Compartments of the bilateral upper extremities are soft. Palpable radial and ulnar pulses bilaterally. LYMPH: No cervical adenopathy. Course Course 1853: The patient was evaluated in room BSUBWAIT. A complete history and physical exam was performed Administered Medications Acetaminophen (Acetaminophen 500 Mg Tab) 1,000 mg PO HS [facility] Stop: 01/07/22 22:23 Last Admin: 12/08/21 23:21 Dose: 1,000 mg Documented By: GAVIN Apixaban (Apixaban 2.5 Mg Tab) 2.5 mg PO BID RENY Stop: 01/07/22 22:23 Last Admin: 12/08/21 23:22 Dose: 2.5 mg Documented By: GAVIN Diphenhydramine HCl (Diphenhydramine Capsule 25 Mg Cap) 50 mg PO HS [facility] Stop: 01/07/22 22:23 Last Admin: 12/08/21 23:22 Dose: 50 mg Documented By: GAVIN Gabapentin (Gabapentin 100 Mg Cap) 100 mg PO BID RENY Stop: 01/07/22 22:23 Last Admin: 12/08/21 23:22 Dose: 100 mg Documented By: GAVIN Tamsulosin HCl (Tamsulosin Hcl 0.4 Mg Cap) 0.4 mg PO RENY Stop: 01/07/22 22:23 Last Admin: 12/08/21 23:18 Dose: Not Given Documented By: GAVIN Tizanidine HCl (Tizanidine Hcl 4 Mg Tablet) 12 mg PO HS RENY Stop: 01/07/22 22:23 Last Admin: 12/08/21 23:44 Dose: 8 mg Documented By: GAVIN Discontinued Medications Cefepime HCl (Maxipime) 2,000 mg in 20 mls @ 5 mls/min IV NOW STA; Protocol Stop: 12/08/21 19:04 Last Admin: 12/08/21 20:54 Dose: 5 mls/min Documented By: RUT Daptomycin 350 mg/ Syringe 7 mls @ 3.5 mls/min IV Q24H RENY; Protocol Stop: 12/15/21 19:44 Last Admin: 12/08/21 20:54 Dose: 3.5 mls/min Documented By: RUT Piperacillin Sod/Tazobactam (Sod 4.5 gm/ Dextrose) 120 mls @ 200 mls/hr IV 2330 ONE; Protocol Stop: 12/09/21 00:05 Last Infusion: 12/09/21 00:46 Dose: 0 mls/hr Documented By: Admin: 12/08/21 23:24 Dose: 200 mls/hr Documented By: GAVIN Medical Decision Making Laboratory Data Result diagrams: 12/08/21 17:30 12/08/21 17:30 Lab Results 12/08/21 12/08/21 12/08/21 Range/Units 17:30 17:30 17:30 WBC 9.49 (4.8-10.8) K/ul RBC 3.79 L (4.63-6.08) M/uL Hgb 10.1 L (14.0-18.0) g/dl Hct 31.2 L (40.1-51.0) % MCV 82.3 (80.0-100.0) fL MCH 26.6 (25.0-34.0) pg MCHC 32.4 (32.0-36.0) g/dL RDW Std Deviation 46.5 H (36.4-46.3) fL RDW Coeff of Brendon 15.3 H (11.5-14.5) % Plt Count 352 (130-400) K/uL MPV 9.3 L (9.4-12.4) fL Immature Gran % (Auto) 0.7 % Neut % (Auto) 83.8 % Lymph % (Auto) 6.1 % Tompkins % (Auto) 9.2 % Eos % (Auto) 0.1 % Baso % (Auto) 0.1 % Neut # (Auto) 7.95 H (1.4-6.5) K/uL Lymph # (Auto) 0.58 L (1.2-3.4) K/uL Tompkins # (Auto) 0.87 H (0.24-0.82) K/uL Eos # (Auto) 0.01 (0-0.50) K/uL Baso # (Auto) 0.01 (0-0.2) K/uL Immature Gran # (Auto) 0.07 H (0.00-0.02) K/uL PT 12.0 (9.0-12.0) Seconds INR 1.1 (0.9-1.1) APTT 34.0 H (21.0-31.0) Seconds PTT Ratio 1.2 Sodium 136 (136-145) mmol/L Potassium 3.6 (3.5-5.1) mmol/L Chloride 101 (98-107) mmol/L Carbon Dioxide 26 (21-32) mmol/L Anion Gap 9 (3-11) BUN 16 (6-23) mg/dl Creatinine 0.66 (0.6-1.4) mg/dl Est Cr Clr Drug Dosing Not Reportable Est GFR ( Amer) 127.0 ml/min Est GFR (Non-Af Amer) 109.6 ml/min BUN/Creatinine Ratio 24.2 H (10-20) Glucose 136 H (70-99(Fasting)) mg/dl Calcium 9.0 (8.5-10.1) mg/dl Magnesium 2.1 (1.7-2.4) mg/dl Total Bilirubin 0.3 (0.2-1.0) mg/dl AST 12 L (13-39) U/L ALT 16 (7-52) U/L Alkaline Phosphatase 60 (34-104) U/L Total Protein 7.5 (6.0-8.3) gm/dl Albumin 3.4 (3.4-5.0) gm/dl Globulin 4.1 H (2.5-4.0) gm/dl Albumin/Globulin Ratio 0.8 L (0.9-2) SARS-CoV-2, RNA, NAAT (NEGATIVE) 12/08/21 Range/Units 19:16 WBC (4.8-10.8) K/ul RBC (4.63-6.08) M/uL Hgb (14.0-18.0) g/dl Hct (40.1-51.0) % MCV (80.0-100.0) fL MCH (25.0-34.0) pg MCHC (32.0-36.0) g/dL RDW Std Deviation (36.4-46.3) fL RDW Coeff of Brendon (11.5-14.5) % Plt Count (130-400) K/uL MPV (9.4-12.4) fL Immature Gran % (Auto) % Neut % (Auto) % Lymph % (Auto) % Tompkins % (Auto) % Eos % (Auto) % Baso % (Auto) % Neut # (Auto) (1.4-6.5) K/uL Lymph # (Auto) (1.2-3.4) K/uL Tompkins # (Auto) (0.24-0.82) K/uL Eos # (Auto) (0-0.50) K/uL Baso # (Auto) (0-0.2) K/uL Immature Gran # (Auto) (0.00-0.02) K/uL PT (9.0-12.0) Seconds INR (0.9-1.1) APTT (21.0-31.0) Seconds PTT Ratio Sodium (136-145) mmol/L Potassium (3.5-5.1) mmol/L Chloride (98-107) mmol/L Carbon Dioxide (21-32) mmol/L Anion Gap (3-11) BUN (6-23) mg/dl Creatinine (0.6-1.4) mg/dl Est Cr Clr Drug Dosing Est GFR ( Amer) ml/min Est GFR (Non-Af Amer) ml/min BUN/Creatinine Ratio (10-20) Glucose (70-99(Fasting)) mg/dl Calcium (8.5-10.1) mg/dl Magnesium (1.7-2.4) mg/dl Total Bilirubin (0.2-1.0) mg/dl AST (13-39) U/L ALT (7-52) U/L Alkaline Phosphatase (34-104) U/L Total Protein (6.0-8.3) gm/dl Albumin (3.4-5.0) gm/dl Globulin (2.5-4.0) gm/dl Albumin/Globulin Ratio (0.9-2) SARS-CoV-2, RNA, NAAT NEGATIVE (NEGATIVE) MDM Narrative Patient was moved to room C10 [facility] Cardiac monitoring: An order was placed for continuous cardiac monitoring. The monitor shows a rate of 90 with sinus rhythm Patient was seen by me 3 days ago. The wound does appear worse. Labs show normal white blood cell count. No fevers. We will follow the recommendations of the wound care center and admit the patient for cellulitis failed outpatient treatment. Wound culture was sent off by the wound center earlier today. Vamsi nt will be treated with cefepime based off his previous cultures as well as daptomycin for any sort of staphylococcal infection. Discussed the case with Dr. Lachelle Mcmullen hospitalist who will admit the patient Impression & Plan Stage III pressure ulcer of left elbow, Cellulitis Discharge Plan Visit Data Chief Complaint: Infection Stated Complaint: ELBOW INFECTION ED Provider: Herminio Castellanos Discharge Problem: Stage III pressure ulcer of left elbow, Cellulitis Patient Disposition: Admitted As Inpatient Discharge Instructions Interventions: ED Discharge Assessment Last Done: 12/08/21 21:42
[2021-12-09] MEDS: ACETAMINOPHEN 325 MG TAB PO PRN ×2 (05:44→15:56)
[2021-12-09] MEDS: PIPERACILLIN/TAZOBACTAM 3.375 GM in DEXTROSE 5% 100 ML IV SCH ×3 (05:46→22:10)
[2021-12-09 06:09] LABS: Basophils # (auto) 0.03 K/uL (0-0.2); Basophils % (auto) 0.4 %; Eosinophils # (auto) 0.02 K/uL (0-0.50); Eosinophils % (auto) 0.2 %; Hematocrit (blood only) 31.2 % (40.1-51.0); Hemoglobin 10.2 g/dl (14.0-18.0); Immature Granulocytes # (auto) 0.08 K/uL (0.00-0.02); Immature Granulocytes % (auto) 0.9 %; Lymphocytes # (auto) 0.92 K/uL (1.2-3.4); Lymphocytes % (auto) 10.8 %; Mean Corpuscular Hemoglobin 26.6 pg (25.0-34.0); Mean Corpuscular Hgb Conc 32.7 g/dL (32.0-36.0); Mean Corpuscular Volume 81.3 fL (80.0-100.0); Mean Platelet Volume 9.6 fL (9.4-12.4); Monocytes # (auto) 0.84 K/uL (0.24-0.82); Monocytes % (auto) 9.9 %; Neutrophils # (auto) 6.59 K/uL (1.4-6.5); Neutrophils % (auto) 77.8 %; Platelet Count 354 K/uL (130-400); RDW Coefficient of Variation 15.4 % (11.5-14.5); RDW Standard Deviation 45.9 fL (36.4-46.3); Red Blood Count 3.84 M/uL (4.63-6.08); White Blood Count 8.48 K/ul (4.8-10.8)
[2021-12-09 06:37] LABS: Potassium 3.8 mmol/L (3.5-5.1)
[2021-12-09 07:57] LABS: BUN Creatinine Ratio 26.7 (10-20); Calcium 9.1 mg/dl (8.5-10.1); Creatinine Clr Calc Pharmacy 141.8 ml/min; Est GFR (African American) 120.5 ml/min; Magnesium 2.1 mg/dl (1.7-2.4)
--- NOTE | 2021-12-09 08:53 | Orthopedic Consultation ---
Date of Consultation December 09, 2021 Assessment & Plan (1) Stage III pressure ulcer of right elbow: 56-year-old male with bilateral elbow pressure ulcers -Pain control -Wound care -Continue to follow cultures -Antibiotics per primary team -Medical management -Patient recently saw one of my colleagues in the office this past week we will plan to reach out and touch base with him regarding definitive plan for right elbow with potential closure. In regards to his left elbow it does appear that he has increased purulence over this area and he could potentially require additional wound care and or placement of a wound VAC. We will follow clinically. Would also recommend trending inflammatory markers. (2) Stage III pressure ulcer of left elbow: History of Present Illness Reason for Consultation: Bilateral elbow wounds Attending Physician: Derik Hartley MD History of Present Illness 56-year-old male with history of hemiplegia wheelchair-bound presenting for chronic bilateral elbow wounds. He notes that he has been treated now for several months. Wounds are located over the posterior aspect of his olecranon he has tried local wound care as well as previously had wound vacs. Left side seems to be bothering him more than his right side. He does note limited use of his left hand secondary to previous nerve issues from multiple surgeries. He was recommended by his home wound care to come for evaluation to the emergency department due to increased purulence from the wound on the left side. Allergies Allergy/AdvReac Type Severity Reaction Status Date / Time vancomycin Allergy Severe Rash Verified 12/08/21 19:30 amantadine AdvReac Severe CHEST Verified 12/08/21 19:30 PAIN, ANXIETY Home Medications Medication Instructions Recorded Confirmed Type ascorbic acid (vitamin C) 1,000 mg 1 g PO QAM 07/09/18 12/08/21 History tablet (Vitamin C) magnesium oxide 400 mg PO Q OTHER DAY 07/09/18 12/08/21 History pyridoxine (vitamin B6) 100 mg 100 mg PO QAM 07/09/18 12/08/21 History tablet tizanidine 4 mg tablet 8 mg PO HS 07/09/18 12/09/21 History tamsulosin 0.4 mg capsule 0.4 mg PO HS 08/18/18 12/08/21 History acetaminophen 325 mg capsule 650 mg PO DAILY PRN Pain 09/18/18 12/08/21 History (Tylenol) diphenhydramine 25 2 tab PO HS sleep 09/11/20 12/08/21 History mg-acetaminophen 500 mg tablet (Tylenol PM Extra Strength) apixaban 2.5 mg tablet (Eliquis) 2.5 mg PO BID 10/26/21 12/08/21 History furosemide 20 mg tablet 20 mg PO DAILY PRN fluid 10/26/21 12/08/21 History accumulation or weight gain gabapentin 100 mg capsule 100 mg PO BID 10/26/21 12/08/21 History menthol 0.44 %-zinc oxide 20.6 % 1 applic topical QID PRN skin rash 10/26/21 12/08/21 History topical ointment (Calmoseptine) amoxicillin 500 mg capsule 500 mg PO Q8H #7 caps 12/05/21 12/08/21 Rx levofloxacin 750 mg tablet 750 mg PO DAILY 7 days #7 tabs 12/05/21 12/08/21 Rx omeprazole 40 mg capsule,delayed 40 mg PO DAILY 12/08/21 12/08/21 History release Patient History Medical History Anemia iron deficiency Chronic neck pain Ependymoma GERD (gastroesophageal reflux disease) 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 History of gastric ulcer Left arm numbness chronic s/p left arm surgery Spastic hemiparesis 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 (no further details)- paralyzed from the chest down initially which significantly improved with (able to walk with crunches) with therapy, increased LE weakness 2007 and now patient wheelchair bound felt 2/2 nerve damage Surgical History H/O bursectomy left elbow H/O cervical spine surgery 1990 (benign cystectomy) + scar tissue removal H/O eye surgery foreign body (metal) removal from left eye History of esophagogastroduodenoscopy (EGD) EGD: 07/16/18: MAC sedation at [facility] Family History Father Hypertension Other No family history of adverse response to anesthesia Social History Smoking Status: Never smoker Second Hand Exposure: No; Do You Dip or Chew Tobacco: No; Tobacco Cessation Education Requested by Patient: No Hx Alcohol Use: No Hx Substance Use: No Preferred Language: Vietnamese Communication Ability: Effective Airplane And Engine Inspector Required: No Beliefs That Will Affect Care: None Current Living Situation: Spouse and Family Current Living Situation Comment: Lives with and daughter and 1 granddaughter current occupational status: disabled Other Information That Helps Us Care for You: No Feels Safe at Home: Yes Safety Concerns: Feels Safe At This Time Do you think of yourself as: straight/heterosexual Gender Identity: Male Assistive Devices: Glasses, Lift Chair and Scooter/Electric Scooter Physical Exam Physical Exam: General: No acute distress, alert and oriented person place time Musculoskeletal: Left upper extremity -There is a 1 and half centimeter ulceration present over the olecranon. There is gross purulence noted in the subcutaneous tissues. Some mild surrounding erythema -Forearm compartments soft and compressible -Sensation intact to light touch srad/med/dec uln - Fires EPL/FPL/EDC/FDP/ weak intrinsics + rad pulse Right upper extremity -There is a 1 centimeter ulceration present over the olecranon with wound packing. No significant purulence with minimal erythema -Forearm compartments soft and compressible -Sensation intact to light touch srad/med/uln - Fires EPL/FPL/EDC/FDP/ weak intrinsics + rad pulse Results & Data ([facility]) Vital Signs (Past 12 Hours) Vital Signs Temp Pulse Resp BP BP Pulse Ox O2 Del Method 12/09/21 08:03 37.4 C 89 16 114/66 96 Room Air 12/09/21 05:47 38.2 C H 12/08/21 21:50 37.4 C 102 H 16 147/81 H 98 Room Air 12/08/21 21:01 24 162/110 H 97 Room Air 12/08/21 21:27 89 24 137/59 L 98 Room Air Diagnostic Findings CT of the bilateral elbows demonstrates superficial ulceration there is not appear to be any bony erosion consistent with osteomyelitis.
[2021-12-09] MEDS: APIXABAN 2.5 MG TAB PO SCH (09:16)
[2021-12-09] MEDS: ASCORBIC ACID 500 MG TAB PO SCH (09:16)
[2021-12-09] MEDS: GABAPENTIN 100 MG CAP PO SCH ×2 (09:16→21:53)
[2021-12-09] MEDS: PANTOprazole 40 MG TAB PO SCH (09:17)
[2021-12-09] MEDS: PYRIDOXINE HCL 50 MG TAB PO SCH (09:17)
--- NOTE | 2021-12-09 10:46 | Anesthesiology Consultation ---
Date of Service December 09, 2021 Assessment & Plan (1) Encounter for pre-operative examination: Chart Review Chart Review: Acceptable Risk for Surgery and Patient NOT seen in Pre Admission Testing Consults Requested none History Surgery Operation Date: 12/10/21 07:30 Proposed Procedures p Incision and Drainage Extremity(Left) - Keenan Bass DO Height/Weight Height: 5 ft 11 in Weight: 109.7 kg Allergies Allergy/AdvReac Type Severity Reaction Status Date / Time vancomycin Allergy Severe Rash Verified 12/08/21 19:30 amantadine AdvReac Severe CHEST Verified 12/08/21 19:30 PAIN, ANXIETY Medications Home Medications Medication Instructions Recorded Confirmed Last Taken ascorbic acid (vitamin C) 1,000 mg 1 g PO QAM 07/09/18 12/08/21 09/22/20 tablet (Vitamin C) magnesium oxide 400 mg PO Q OTHER DAY 07/09/18 12/08/21 09/21/20 pyridoxine (vitamin B6) 100 mg 100 mg PO QAM 07/09/18 12/08/21 09/22/20 tablet tizanidine 4 mg tablet 8 mg PO HS 07/09/18 12/09/21 09/22/20 tamsulosin 0.4 mg capsule 0.4 mg PO HS 08/18/18 12/08/21 09/22/20 acetaminophen 325 mg capsule 650 mg PO DAILY PRN Pain 09/18/18 12/08/21 09/17/18 (Tylenol) diphenhydramine 25 2 tab PO HS sleep 09/11/20 12/08/21 09/22/20 mg-acetaminophen 500 mg tablet 2 tabs (Tylenol PM Extra Strength) apixaban 2.5 mg tablet (Eliquis) 2.5 mg PO BID 10/26/21 12/08/21 Unknown furosemide 20 mg tablet 20 mg PO DAILY PRN fluid 10/26/21 12/08/21 Unknown accumulation or weight gain gabapentin 100 mg capsule 100 mg PO BID 10/26/21 12/08/21 Unknown menthol 0.44 %-zinc oxide 20.6 % 1 applic topical QID PRN skin rash 10/26/21 12/08/21 Unknown topical ointment (Calmoseptine) amoxicillin 500 mg capsule 500 mg PO Q8H #7 caps 12/05/21 12/08/21 Unknown levofloxacin 750 mg tablet 750 mg PO DAILY 7 days #7 tabs 12/05/21 12/08/21 Unknown omeprazole 40 mg capsule,delayed 40 mg PO DAILY 12/08/21 12/08/21 Unknown release Active Medications Generic Name Dose Route Start Last Admin Trade Name Ling PRN Reason Stop Dose Admin Acetaminophen 650 mg 12/08/21 22:24 12/09/21 05:44 Acetaminophen 325 Mg Tab PO 01/07/22 22:23 650 mg Q4H PRN Administration pain/fever Acetaminophen 1,000 mg 12/08/21 22:24 12/08/21 23:21 Acetaminophen 500 Mg Tab PO 01/07/22 22:23 1,000 mg HS RENY Administration Apixaban 2.5 mg 12/08/21 22:24 12/09/21 09:16 Apixaban 2.5 Mg Tab PO 01/07/22 22:23 2.5 mg BID RENY Administration Ascorbic Acid 1,000 mg 12/09/21 09:00 12/09/21 09:16 Ascorbic Acid 500 Mg Tab PO 01/08/22 08:59 1,000 mg QAM RENY Administration Diphenhydramine HCl 50 mg 12/08/21 22:24 12/08/21 23:22 Diphenhydramine Capsule 25 Mg Cap PO 01/07/22 22:23 50 mg HS RENY Administration Gabapentin 100 mg 12/08/21 22:24 12/09/21 09:16 Gabapentin 100 Mg Cap PO 01/07/22 22:23 100 mg BID RENY Administration Piperacillin Sod/Tazobactam 115 mls @ 28.75 mls/hr 12/09/21 06:00 12/09/21 09:40 Sod 3.375 gm/ Dextrose IV 12/16/21 05:59 Infused Q8H RENY Infusion Protocol Pantoprazole Sodium 40 mg 12/09/21 09:00 12/09/21 09:17 Pantoprazole 40 Mg Tab PO 01/08/22 08:59 40 mg DAILY RENY Administration Pyridoxine HCl 100 mg 12/09/21 09:00 12/09/21 09:17 Pyridoxine Hcl 50 Mg Tab PO 01/08/22 08:59 100 mg QAM RENY Administration Tamsulosin HCl 0.4 mg 12/08/21 22:24 12/08/21 23:18 Tamsulosin Hcl 0.4 Mg Cap PO 01/07/22 22:23 Not Given HS RENY Past Medical History Medical History Anemia iron deficiency Chronic neck pain Chronic paraplegia Ependymoma GERD (gastroesophageal reflux disease) 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 History of gastric ulcer Left arm numbness chronic s/p left arm surgery Obesity Spastic hemiparesis 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 (no further details)- paralyzed from the chest down initially which significantly improved with (able to walk with crunches) with therapy, increased LE weakness 2007 and now patient wheelchair bound felt 2/2 nerve damage Stage III pressure ulcer of left elbow Past Family History Family History Father Hypertension Other No family history of adverse response to anesthesia Past Surgical History Surgical History H/O bursectomy left elbow H/O cervical spine surgery 1990 (benign cystectomy) + scar tissue removal H/O eye surgery foreign body (metal) removal from left eye History of esophagogastroduodenoscopy (EGD) EGD: 07/16/18: MAC sedation at [facility] Social History Smoking Status: Never smoker Do You Dip or Chew Tobacco: No Hx Alcohol Use: No Alcohol type: hard liquor alcohol intake frequency: holidays/special occasions only Hx Substance Use: No substance use type: does not use Physical Exam Vital Signs Last Vital Signs Temp 37.8 C H 12/09/21 13:13 Pulse 89 12/09/21 08:03 Resp 16 12/09/21 08:03 BP 114/66 12/09/21 08:03 Pulse Ox 96 12/09/21 08:03 O2 Del Method 12/09/21 08:03 Testing Laboratory Results 12/09/21 05:48 12/09/21 05:48 PT 12.0 Seconds (9.0-12.0) 12/08/21 17:30 INR 1.1 (0.9-1.1) 12/08/21 17:30 APTT 34.0 Seconds (21.0-31.0) H 12/08/21 17:30 12/08/21 22:55 Gram Stain - Final Elbow,Left Wound Culture - Preliminary No growth to date. 12/08/21 23:50 Gram Stain - Final Elbow,Right Electrocardiogram Date: 12/08/21 Accelerated junctional rhythm, rate 93
--- NOTE | 2021-12-09 14:41 | Electrocardiogram Report ---
Test Reason : Blood Pressure : / mmHG Vent. Rate : 093 BPM Atrial Rate : 093 BPM P-R Int : 000 ms QRS Dur : 082 ms QT Int : 340 ms P-R-T Axes : 000 -17 033 degrees QTc Int : 422 ms Poor data quality, interpretation may be adversely affected Sinus rhythm Normal ECG When compared with ECG of 23-SEP-2020 10:51, No significant change Confirmed by Fredy Fisher ([id number]) on 12/09/2021 2:41:25 PM Referred By: Lisa Rashid Confirmed By:Fredy Fisher
--- NOTE | 2021-12-09 15:40 | Hospitalist Progress Note ---
Date of Service December 09, 2021 Assessment & Plan (1) Pressure ulcer: (2) Stage III pressure ulcer of left elbow: (3) Stage III pressure ulcer of right elbow: (4) Spastic hemiparesis: Plan This is a 56-year-old male who presents with bilateral elbow wounds. Bilateral pressure ulcers wound on elbows. Pressure ulcer wounds Failed outpatient treatment Febrile on presentation No leukocytosis ESR greater than 130 Plan; Started on daptomycin 6 mg/kg and Zosyn. Orthopedic on board; possible I&D tomorrow morning in OR on the left elbow. Right elbow will need wound care; wound care nurse on consult. Will consult infectious disease for further recommendation for course and duration of antibiotic Blood culture ordered as patient continues to be febrile. 2. History of cervical ependymoma, status post surgical resection x2 and radiat ion treatment, residual paraparesis and spastic hemiplegia, wheelchair bound. 3. Iron-deficiency anemia. Hemoglobin of 10.1. Flow up with primary care physician. 4. History of deep venous thrombosis, on Eliquis. 5. Gastroesophageal reflux disease, on omeprazole. 6. Benign prostatic hyperplasia, on Flomax. 7. Muscle spasticity. Continue home medications. 8. Deep venous thrombosis prophylaxis, on Eliquis On hold tomorrow morning. Admission and Anticipated Discharge Date Admission Date: December 08, 2021 Subjective Patient seen and examined by bedside. He is febrile up to 38.9C Review of Systems Review of Systems: All systems reviewed & are unremarkable except as noted in Subjective Physical Exam Physical Exam: Constitutional: WD/WN, vitals as above, NAD, sitting up in bed, pleasant, conversing easily Respiratory: normal respiratory effort, lungs clear to auscultation, no wheeze, rales, rhonchi. Normal insp/exp effort, no accessory muscle use Cardiovascular: RRR, no murmur, no edema Vessels: no JVD or carotid bruit Chest: normal inspection of chest Abdomen: normal bowel sounds, soft, nontender, no hepatosplenomegaly Musculoskeletal: Bilateral elbow wounds. Left lower lobe bandaged over; no overlying drainage. Skin: no rashes, warm and dry normal turgor Neurologic: PERRL, EOMI, accommodation nl, no face palsy, no dysarthria CN's II- XI intact bilaterally and moves all extremities Psychiatric: A+Ox3, euthymic affect Lymphatic: no cervical or axillary lymphadenopathy : deferred Results & Data Results & Data ([facility]) Vital Signs (Past 12 Hours) Vital Signs Temp Pulse Resp BP Pulse Ox O2 Del Method 12/09/21 15:02 38.9 C H 100 H 16 119/66 96 Room Air 12/09/21 13:13 37.8 C H 12/09/21 08:03 37.4 C 89 16 114/66 96 Room Air 12/09/21 05:47 38.2 C H Laboratory Results Laboratory Results WBC 8.48 K/ul (4.8-10.8) 12/09/21 05:48 RBC 3.84 M/uL (4.63-6.08) L 12/09/21 05:48 Hgb 10.2 g/dl (14.0-18.0) L 12/09/21 05:48 Hct 31.2 % (40.1-51.0) L 12/09/21 05:48 MCV 81.3 fL (80.0-100.0) 12/09/21 05:48 MCH 26.6 pg (25.0-34.0) 12/09/21 05:48 MCHC 32.7 g/dL (32.0-36.0) 12/09/21 05:48 RDW Std Deviation 45.9 fL (36.4-46.3) 12/09/21 05:48 RDW Coeff of Brendon 15.4 % (11.5-14.5) H 12/09/21 05:48 Plt Count 354 K/uL (130-400) 12/09/21 05:48 MPV 9.6 fL (9.4-12.4) 12/09/21 05:48 Immature Gran % (Auto) 0.9 % 12/09/21 05:48 Neut % (Auto) 77.8 % 12/09/21 05:48 Lymph % (Auto) 10.8 % 12/09/21 05:48 [place] % (Auto) 9.9 % 12/09/21 05:48 Eos % (Auto) 0.2 % 12/09/21 05:48 Baso % (Auto) 0.4 % 12/09/21 05:48 Neut # (Auto) 6.59 K/uL (1.4-6.5) H 12/09/21 05:48 Lymph # (Auto) 0.92 K/uL (1.2-3.4) L 12/09/21 05:48 [place] # (Auto) 0.84 K/uL (0.24-0.82) H 12/09/21 05:48 Eos # (Auto) 0.02 K/uL (0-0.50) 12/09/21 05:48 Baso # (Auto) 0.03 K/uL (0-0.2) 12/09/21 05:48 Immature Gran # (Auto) 0.08 K/uL (0.00-0.02) H 12/09/21 05:48 ESR > 130 mm/hr (0-20) H 12/09/21 05:48 PT 12.0 Seconds (9.0-12.0) 12/08/21 17:30 INR 1.1 (0.9-1.1) 12/08/21 17:30 APTT 34.0 Seconds (21.0-31.0) H 12/08/21 17:30 PTT Ratio 1.2 12/08/21 17:30 Sodium 135 mmol/L (136-145) L 12/09/21 05:48 Potassium 3.8 mmol/L (3.5-5.1) 12/09/21 05:48 Chloride 102 mmol/L (98-107) 12/09/21 05:48 Carbon Dioxide 22 mmol/L (21-32) 12/09/21 05:48 Anion Gap 11 (3-11) 12/09/21 05:48 BUN 20 mg/dl (6-23) 12/09/21 05:48 Creatinine 0.75 mg/dl (0.6-1.4) 12/09/21 05:48 Est Cr Clr Drug Dosing 141.8 ml/min 12/09/21 05:48 Est GFR ( Amer) 120.5 ml/min 12/09/21 05:48 Est GFR (Non-Af Amer) 104.0 ml/min 12/09/21 05:48 BUN/Creatinine Ratio 26.7 (10-20) H 12/09/21 05:48 Glucose 118 mg/dl (70-99(Fasting)) H 12/09/21 05:48 Calcium 9.1 mg/dl (8.5-10.1) 12/09/21 05:48 Magnesium 2.1 mg/dl (1.7-2.4) 12/09/21 05:48 Total Bilirubin 0.3 mg/dl (0.2-1.0) 12/08/21 17:30 AST 12 U/L (13-39) L 12/08/21 17:30 ALT 16 U/L (7-52) 12/08/21 17:30 Alkaline Phosphatase 60 U/L (34-104) 12/08/21 17:30 C-Reactive Protein 35.04 mg/dl (0-0.5) H 12/09/21 05:48 Total Protein 7.5 gm/dl (6.0-8.3) 12/08/21 17:30 Albumin 3.4 gm/dl (3.4-5.0) 12/08/21 17:30 Globulin 4.1 gm/dl (2.5-4.0) H 12/08/21 17:30 Albumin/Globulin Ratio 0.8 (0.9-2) L 12/08/21 17:30 SARS-CoV-2, RNA, NAAT NEGATIVE (NEGATIVE) 12/08/21 19:16
[2021-12-09] MEDS ORDERED: DAPTOmycin 350 MG in SYRINGE 0 ML IV SCH (21:00)
[2021-12-09] MEDS: ACETAMINOPHEN 500 MG TAB PO SCH (21:31)
[2021-12-09] MEDS: DAPTOmycin 600 MG in SYRINGE 0 ML IV SCH (21:44)
[2021-12-09] MEDS: tiZANidine HCL 4 MG TABLET PO SCH (21:53)
[2021-12-09] MEDS: diphenhydrAMINE Capsule 25 MG CAP PO SCH (21:55)
[2021-12-09] MEDS: ZOLPIDEM TARTRATE 5 MG TAB PO SCH (21:57)
[2021-12-09] MEDS: TAMSULOSIN HCL 0.4 MG CAP PO SCH (22:00)
[2021-12-10] MEDS: ACETAMINOPHEN 325 MG TAB PO PRN ×2 (03:39→11:23)
[2021-12-10] MEDS: PIPERACILLIN/TAZOBACTAM 3.375 GM in DEXTROSE 5% 100 ML IV SCH ×3 (05:49→22:00)
[2021-12-10] MEDS ORDERED: ONDANSETRON INJ 2 MG/ML 2 ML VIAL IV PRN ×2 (07:22→10:08)
[2021-12-10] MEDS ORDERED: fentaNYL citrate 100 MCG/2 ML VIAL IV PRN (07:22)
[2021-12-10] MEDS ORDERED: PHENYLEPHRINE 100MCG/ML 5ML SYR IV PRN (07:22)
[2021-12-10] MEDS ORDERED: LABETALOL HCL IV 5 MG/ML 20ML IV PRN (07:22)
[2021-12-10] MEDS ORDERED: ATROPINE SULFATE 0.1 MG/ML 10ML SYR IV PRN (07:22)
[2021-12-10] MEDS ORDERED: ePHEDrine sulfate 50 MG/ML AMP IV PRN (07:22)
[2021-12-10] MEDS ORDERED: HYDROmorphone INJ 1 MG/ML SYRINGE IV PRN (07:22)
[2021-12-10] MEDS ORDERED: MIDAZOLAM HCL 1 MG/ML 2ML VIAL ONE (07:28)
[2021-12-10] MEDS ORDERED: fentaNYL citrate 100 MCG/2 ML VIAL ONE (07:28)
[2021-12-10] MEDS ORDERED: LIDOCAINE 2% 2 ML VIAL/AMP(20MG/ML) INFIL ONE (07:32)
[2021-12-10] MEDS ORDERED: PROPOFOL IV EMULSION 10 MG/ML 20 ML VIAL IV ONE (07:33)
--- NOTE | 2021-12-10 07:38 | History & Physical Bridge Note ---
Date of Service December 10, 2021 History & Physical Bridge Note I have examined the patient, reviewed the History & Physical and in the interval since the performance of the History & Physical I have noted the following changes of clinical significance: no changes noted. I met with the patient in the preoperative holding area. We had a lengthy discussion regarding risk benefits and potential complications of right and left olecranon irrigation and debridement with placement of wound VAC. Risk include but are not limited to: Recurrent infection, neurovascular injury and need for subsequent surgical procedures. After reviewing these he has elected to proceed with surgical intervention and written consent was obtained.
[2021-12-10] MEDS ORDERED: ONDANSETRON INJ 2 MG/ML 2 ML VIAL ONE (08:15)
--- NOTE | 2021-12-10 09:04 | Post Operative Brief Note ---
Immediate Post Op Note v1 Date of Surgery December 10, 2021 Pre & Post Diagnosis Operation Date: 12/10/21 07:30 Pre-Op Diagnosis: Right and Left Olecranon Pressure Ulcers Post-Op Diagnosis: Right and Left Olecranon Pressure Ulcers I identified the patient and participated in the time-out.: Yes Procedure Operation Date: 12/10/21 07:30 Actual Procedures p Right and Left Olecranon Irrigation and Debridement with Placement of Wound Vacs(Bilateral) - Keenan Bass DO Surgeon Keenan Bass DO Fruit Canner none Estimated Blood Loss 10 Findings Consistent with Post-Op Diagnosis See dictation Complications None
--- NOTE | 2021-12-10 09:08 | Operative Report ---
Post Operative Report Pre & Post Diagnosis Operation Date: 12/10/21 07:30 Pre-Op Diagnosis: Right and Left Olecranon Pressure Ulcers Post-Op Diagnosis: Right and Left Olecranon Pressure Ulcers I identified the patient and participated in the time-out.: Yes Procedure Operation Date: 12/10/21 07:30 Actual Procedures p Right and Left Olecranon Irrigation and Debridement with Placement of Wound Vacs(Bilateral) - Keenan Bass DO Surgeon Keenan Bass, Picking Machine Operator none Estimated Blood Loss 10 Findings Consistent with Post-Op Diagnosis See dictation Specimens Right and left olecranon cultures Complications None Indications 56-year-old male with chronic bilateral olecranon ulcerations. He has had these ulcerations present for quite some time he was previously being treated with wound care and had wound VAC therapy until recently they noted increased purulence especially to the left side. Due to concern for infection the wound vacs were discontinued and he was treated with local wound care therapy. He was taken to [facility] emergency department where he was admitted for suspected left olecranon infection. Upon arrival he was noted to have elevations in C- reactive protein as well as inflammatory markers and active purulence on the left side. I met with the patient preoperatively. His right side did also have some erythema present. Considering that he had previously done well with previous VAC therapy I did discuss with him irrigation and debridement and placement of bilateral wound vacs. Risk include but are not limited to infection, neurovascular injury, and need for future surgery. After reviewing these he elected proceed with surgical intervention. Description of Procedure Patient was appropriate identified in the preoperative holding area and the bilateral upper extremities were marked. He was receiving antibiotics per previous schedule. He was then taken back to the operative suite where he received general anesthesia. He was positioned supine on the regular OR table and bilateral upper extremities were prepped and draped in the standard orthopedic fashion and timeout was then performed. Attention was first turned to the right olecranon. Subcutaneous tissues were noted to have some granulation tissue present. Wound culture was obtained. Tissue was debrided using combination of a curette as well as [place] elevator and well sure to good viable bleeding tissue. Soft tissues were then copiously irrigated using normal saline solution. A wound VAC was then placed over the wound and connected to suction and noted to have good seal. Tension was then turned to the left elbow. Wound cultures were obtained there was a posterior pocket that tracked up superiorly approximately 3 cm in depth in the subcutaneous tissue. There is some purulence noted to be coming from this area. Subcutaneous tissues were then debrided using combination of a curette, freer elevator, and rongeur to good bleeding viable tissue. Wound was then copiously irrigated using normal saline solution and a wound VAC was then placed. This was noted to have good seal. Patient tolerated the procedure well and was taken to the recovery room in hemodynamically stable condition. I attest to the content of the Intraoperative Record and any orders documented therein. Any exceptions are noted below.
--- NOTE | 2021-12-10 09:28 | Anesthesiology Progress Note ---
Date of Service December 10, 2021 Anesthesia Post Procedure Vital Signs Vital Signs: Temp Pulse Pulse Resp BP BP Pulse Ox 12/10/21 09:20 88 30 H 124/60 94 12/10/21 09:11 36.4 C L 93 H 20 119/62 94 12/09/21 22:06 36.8 C 99 H 18 138/66 94 12/09/21 15:02 38.9 C H 100 H 16 119/66 96 12/09/21 13:13 37.8 C H O2 Del Method O2 Flow Rate 12/10/21 09:20 Oxymask 3 12/10/21 09:11 Oxymask 5 12/09/21 22:06 Room Air 12/09/21 15:02 Room Air 12/09/21 13:13 Pain Intensity Left Elbow: Pain Intensity: 3 Transfer of Care Handoff Completed per policy Notes Mental Status: alert / awake / arousable Patient Amnestic to Procedure: Yes Nausea / Vomiting: adequately controlled Pain: adequately controlled Airway Patency, RR, SpO2: stable & adequate BP & HR: stable & adequate Hydration State: stable & adequate Anesthetic Complications: no major complications apparent and Pt Satisfied with anesthetic care Notes: The patient is awake and comfortable. His respiratory rate is 18.
[2021-12-10] MEDS ORDERED: oxyCODONE HCL IR 5 MG TAB (IMMEDIATE RELEASE) PO PRN (10:08)
[2021-12-10] MEDS ORDERED: METOCLOPRAMIDE HCL INJ 5 MG/ML 2 ML VIAL IV PRN (10:08)
[2021-12-10] MEDS ORDERED: bisacodyL 10 MG SUPP PR PRN (10:08)
[2021-12-10] MEDS ORDERED: MAGNESIUM HYDROXIDE SUSP 30 ML UDC PO PRN (10:08)
[2021-12-10] MEDS ORDERED: NALOXONE HCL 0.4 MG/1 ML VIAL/CARP IV PRN (10:08)
[2021-12-10] MEDS: SODIUM CHLORIDE 0.9% 1000ML 1,000 ML IV SCH ×2 (11:21→22:25)
[2021-12-10] MEDS: PANTOprazole 40 MG TAB PO SCH (11:24)
[2021-12-10] MEDS: ASCORBIC ACID 500 MG TAB PO SCH (11:24)
[2021-12-10] MEDS: GABAPENTIN 100 MG CAP PO SCH ×2 (11:24→22:18)
[2021-12-10] MEDS: DOCUSATE SODIUM 100 MG CAP PO SCH ×2 (11:25→22:19)
[2021-12-10] MEDS: MAGNESIUM OXIDE 400 MG TAB PO SCH (11:25)
[2021-12-10] MEDS: PYRIDOXINE HCL 50 MG TAB PO SCH (11:25)
[2021-12-10] MEDS: MULTIVITAMIN TAB PO SCH (11:26)
--- NOTE | 2021-12-10 15:51 | Hospitalist Progress Note ---
Date of Service December 10, 2021 Assessment & Plan (1) Pressure ulcer: (2) Stage III pressure ulcer of left elbow: (3) Stage III pressure ulcer of right elbow: (4) Spastic hemiparesis: Plan This is a 56-year-old male who presents with bilateral elbow wounds. Bilateral pressure ulcers wound on elbows s/p bilateral olecranon irrigation and debridement with placement of wound VAC on 12/10 Sepsis POA secondary to above Pressure ulcer wounds Failed outpatient treatment Intermittent fever No leukocytosis on presentation ESR greater than 130 X-ray left elbow on admission showed degenerative changes without joint effusion or osteomyelitis Plan; on daptomycin 6 mg/kg and Zosyn. Will follow wound culture and blood culture. Infectious disease consulted for duration and route of antibiotics. Continue wound care and wound VAC on bilateral elbows. Orthopedic and wound care nurse on board 2. History of cervical ependymoma, status post surgical resection x2 and radiation treatment, residual paraparesis and spastic hemiplegia, wheelchair bound. 3. Iron-deficiency anemia. Hemoglobin of 10.2. Follow up with primary care physician. 4. History of deep venous thrombosis, on Eliquis. 5. Gastroesophageal reflux disease, on omeprazole. 6. Benign prostatic hyperplasia, on Flomax. 7. Muscle spasticity. Continue home medications. 8. Deep venous thrombosis prophylaxis, resume Eliquis. Admission and Anticipated Discharge Date Admission Date: December 08, 2021 Subjective Patient seen after procedure. He has wound VAC placed on bilateral elbows. He spiked fevers after coming from the OR. Review of Systems Review of Systems: All systems reviewed & are unremarkable except as noted in Subjective Physical Exam Physical Exam: Constitutional: WD/WN, vitals as above, NAD, sitting up in bed, pleasant, conversing easily Respiratory: normal respiratory effort, lungs clear to auscultation, no wheeze, rales, rhonchi. Normal insp/exp effort, no accessory muscle use Cardiovascular: RRR, no murmur, no edema Vessels: no JVD or carotid bruit Chest: normal inspection of chest Abdomen: normal bowel sounds, soft, nontender, no hepatosplenomegaly Musculoskeletal: Wound VAC on bilateral elbows with overlying bandages draining serosanguineous output. Skin: no rashes, warm and dry normal turgor Neurologic: PERRL, EOMI, accommodation nl, no face palsy, no dysarthria CN's II- XI intact bilaterally and moves all extremities Psychiatric: A+Ox3, euthymic affect Lymphatic: no cervical or axillary lymphadenopathy : deferred Results & Data Results & Data ([facility]) Vital Signs (Past 12 Hours) Vital Signs Temp Pulse Pulse Resp BP Pulse Ox O2 Del Method 12/10/21 15:19 37.3 C 92 H 17 144/60 H 97 Room Air 12/10/21 13:03 36.5 C 96 H 17 107/68 94 Room Air 12/10/21 11:52 38.3 C H 90 17 98/57 L 92 Room Air 12/10/21 10:45 37.7 C H 90 18 113/65 95 Oxymask 12/10/21 10:25 37.7 C H 92 H 17 114/65 99 Oxymask 12/10/21 09:30 36.5 C 88 26 H 123/60 97 Oxymask 12/10/21 09:20 88 30 H 124/60 94 Oxymask 12/10/21 09:11 36.4 C L 93 H 20 119/62 94 Oxymask O2 Flow Rate 12/10/21 15:19 12/10/21 13:03 12/10/21 11:52 12/10/21 10:45 3 12/10/21 10:25 3 12/10/21 09:30 3 12/10/21 09:20 3 12/10/21 09:11 5 Laboratory Results Laboratory Results WBC 8.48 K/ul (4.8-10.8) 12/09/21 05:48 RBC 3.84 M/uL (4.63-6.08) L 12/09/21 05:48 Hgb 10.2 g/dl (14.0-18.0) L 12/09/21 05:48 Hct 31.2 % (40.1-51.0) L 12/09/21 05:48 MCV 81.3 fL (80.0-100.0) 12/09/21 05:48 MCH 26.6 pg (25.0-34.0) 12/09/21 05:48 MCHC 32.7 g/dL (32.0-36.0) 12/09/21 05:48 RDW Std Deviation 45.9 fL (36.4-46.3) 12/09/21 05:48 RDW Coeff of Brendon 15.4 % (11.5-14.5) H 12/09/21 05:48 Plt Count 354 K/uL (130-400) 12/09/21 05:48 MPV 9.6 fL (9.4-12.4) 12/09/21 05:48 Immature Gran % (Auto) 0.9 % 12/09/21 05:48 Neut % (Auto) 77.8 % 12/09/21 05:48 Lymph % (Auto) 10.8 % 12/09/21 05:48 [place] % (Auto) 9.9 % 12/09/21 05:48 Eos % (Auto) 0.2 % 12/09/21 05:48 Baso % (Auto) 0.4 % 12/09/21 05:48 Neut # (Auto) 6.59 K/uL (1.4-6.5) H 12/09/21 05:48 Lymph # (Auto) 0.92 K/uL (1.2-3.4) L 12/09/21 05:48 [place] # (Auto) 0.84 K/uL (0.24-0.82) H 12/09/21 05:48 Eos # (Auto) 0.02 K/uL (0-0.50) 12/09/21 05:48 Baso # (Auto) 0.03 K/uL (0-0.2) 12/09/21 05:48 Immature Gran # (Auto) 0.08 K/uL (0.00-0.02) H 12/09/21 05:48 ESR > 130 mm/hr (0-20) H 12/09/21 05:48 PT 12.0 Seconds (9.0-12.0) 12/08/21 17:30 INR 1.1 (0.9-1.1) 12/08/21 17:30 APTT 34.0 Seconds (21.0-31.0) H 12/08/21 17:30 PTT Ratio 1.2 12/08/21 17:30 Sodium 135 mmol/L (136-145) L 12/09/21 05:48 Potassium 3.8 mmol/L (3.5-5.1) 12/09/21 05:48 Chloride 102 mmol/L (98-107) 12/09/21 05:48 Carbon Dioxide 22 mmol/L (21-32) 12/09/21 05:48 Anion Gap 11 (3-11) 12/09/21 05:48 BUN 20 mg/dl (6-23) 12/09/21 05:48 Creatinine 0.75 mg/dl (0.6-1.4) 12/09/21 05:48 Est Cr Clr Drug Dosing 141.8 ml/min 12/09/21 05:48 Est GFR ( Amer) 120.5 ml/min 12/09/21 05:48 Est GFR (Non-Af Amer) 104.0 ml/min 12/09/21 05:48 BUN/Creatinine Ratio 26.7 (10-20) H 12/09/21 05:48 Glucose 118 mg/dl (70-99(Fasting)) H 12/09/21 05:48 Calcium 9.1 mg/dl (8.5-10.1) 12/09/21 05:48 Magnesium 2.1 mg/dl (1.7-2.4) 12/09/21 05:48 Total Bilirubin 0.3 mg/dl (0.2-1.0) 12/08/21 17:30 AST 12 U/L (13-39) L 12/08/21 17:30 ALT 16 U/L (7-52) 12/08/21 17:30 Alkaline Phosphatase 60 U/L (34-104) 12/08/21 17:30 C-Reactive Protein 35.04 mg/dl (0-0.5) H 12/09/21 05:48 Total Protein 7.5 gm/dl (6.0-8.3) 12/08/21 17:30 Albumin 3.4 gm/dl (3.4-5.0) 12/08/21 17:30 Globulin 4.1 gm/dl (2.5-4.0) H 12/08/21 17:30 Albumin/Globulin Ratio 0.8 (0.9-2) L 12/08/21 17:30 SARS-CoV-2, RNA, NAAT NEGATIVE (NEGATIVE) 12/08/21 19:16
[2021-12-10] MEDS: ACETAMINOPHEN 500 MG TAB PO SCH (20:41)
[2021-12-10] MEDS: DAPTOmycin 600 MG in SYRINGE 0 ML IV SCH (20:44)
[2021-12-10] MEDS: diphenhydrAMINE Capsule 25 MG CAP PO SCH (22:18)
[2021-12-10] MEDS: tiZANidine HCL 4 MG TABLET PO SCH (22:18)
[2021-12-10] MEDS: TAMSULOSIN HCL 0.4 MG CAP PO SCH (22:19)
[2021-12-10] MEDS: SENNA 8.6 MG TAB PO SCH (22:19)
[2021-12-10] MEDS: ZOLPIDEM TARTRATE 5 MG TAB PO SCH (22:25)
[2021-12-11] MEDS: ACETAMINOPHEN 325 MG TAB PO PRN ×3 (03:01→18:14)
[2021-12-11] MEDS: PIPERACILLIN/TAZOBACTAM 3.375 GM in DEXTROSE 5% 100 ML IV SCH ×3 (05:34→22:13)
--- NOTE | 2021-12-11 07:13 | Orthopedic Progress Note ---
Date of Service December 11, 2021 Assessment & Plan (1) Stage III pressure ulcer of right elbow: Plan: 56-year-old male with bilateral elbow pressure ulcers postop day #1 I&D bilateral elbows with wound VAC placement -Pain control -Wound care -Continue to follow cultures -Antibiotics per primary team -Medical management -Wound vacs placed to bilateral elbows yesterday in the OR. Right elbow wound VAC was removed at some point yesterday or overnight due to poor seal. Wound care will be seeing the patient and will need right elbow wound VAC placed. (2) Stage III pressure ulcer of left elbow: Admission and Anticipated Discharge Date Admission Date: December 08, 2021 Subjective Patient is postop day 1 I&D bilateral elbows with wound VAC placement. Pain is controlled. No other complaints at this time. OR cultures pending. Review of Systems Review of Systems: All systems reviewed & are unremarkable except as noted in Subjective Physical Exam Physical Exam: Right elbow dressing is clean, dry, intact. Fingers are mobile. Numbness bilateral hands is at baseline. Left elbow wound VAC in place with good suction and seal. Mild to moderate swelling left forearm into hand stable. Constitutional: WD/WN, vitals as above Results & Data ([facility]) Vital Signs (Past 12 Hours) Vital Signs Temp Pulse Resp BP Pulse Ox O2 Del Method 12/11/21 06:04 37.6 C H 12/11/21 02:49 38.1 C H 91 H 20 121/79 94 Room Air 12/11/21 00:08 37.3 C 83 18 102/66 91 Room Air
[2021-12-11] MEDS: APIXABAN 2.5 MG TAB PO SCH ×2 (07:29→21:51)
[2021-12-11 08:01] LABS: Hematocrit (blood only) 29.2 % (40.1-51.0); Hemoglobin 9.2 g/dl (14.0-18.0); Mean Corpuscular Hemoglobin 26.1 pg (25.0-34.0); Mean Corpuscular Hgb Conc 31.5 g/dL (32.0-36.0); Mean Corpuscular Volume 82.7 fL (80.0-100.0); Mean Platelet Volume 8.9 fL (9.4-12.4); Platelet Count 411 K/uL (130-400); RDW Coefficient of Variation 15.7 % (11.5-14.5); RDW Standard Deviation 47.7 fL (36.4-46.3); Red Blood Count 3.53 M/uL (4.63-6.08); White Blood Count 7.84 K/ul (4.8-10.8)
[2021-12-11] MEDS: ASCORBIC ACID 500 MG TAB PO SCH (08:18)
[2021-12-11] MEDS: PANTOprazole 40 MG TAB PO SCH (08:19)
[2021-12-11] MEDS: PYRIDOXINE HCL 50 MG TAB PO SCH (08:19)
[2021-12-11] MEDS: MULTIVITAMIN TAB PO SCH (08:20)
[2021-12-11] MEDS: GABAPENTIN 100 MG CAP PO SCH ×2 (08:20→21:50)
[2021-12-11] MEDS: DOCUSATE SODIUM 100 MG CAP PO SCH ×2 (08:20→21:54)
[2021-12-11 08:22] LABS: BUN Creatinine Ratio 22.5 (10-20); Calcium 8.3 mg/dl (8.5-10.1); Creatinine Clr Calc Pharmacy 149.8 ml/min; Est GFR (African American) 123.3 ml/min; Est GFR (Non-African American) 106.4 ml/min; Potassium 3.8 mmol/L (3.5-5.1)
--- NOTE | 2021-12-11 16:36 | Hospitalist Progress Note ---
Date of Service December 11, 2021 Assessment & Plan (1) Pressure ulcer: (2) Stage III pressure ulcer of left elbow: (3) Stage III pressure ulcer of right elbow: (4) Spastic hemiparesis: Plan This is a 56-year-old male who presents with bilateral elbow wounds. Bilateral pressure ulcers wound on elbows s/p bilateral olecranon irrigation and debridement with placement of wound VAC on 12/10 Sepsis POA secondary to above Pressure ulcer wounds Failed outpatient treatment Intermittent fever No leukocytosis on presentation ESR greater than 130 X-ray left elbow on admission showed degenerative changes without joint effusion or osteomyelitis Wound culture from wound care clinic on 12/08group B Streptococcus; sensitive to ampicillin Wound culture from the OR pending results. Blood culture no growth Plan; on daptomycin 6 mg/kg and Zosyn. Infectious disease on board; awaiting culture results for final recommendation. Continue wound care and wound VAC on bilateral elbows. Orthopedic and wound care nurse on board 2. History of cervical ependymoma, status post surgical resection x2 and radiation treatment, residual paraparesis and spastic hemiplegia, wheelchair bound. 3. Iron-deficiency anemia. Hemoglobin of 9.2. Follow up with primary care physician. 4. History of deep venous thrombosis, on Eliquis. 5. Gastroesophageal reflux disease, on omeprazole. 6. Benign prostatic hyperplasia, on Flomax. 7. Muscle spasticity. Continue home medications. 8. Deep venous thrombosis prophylaxis, on Eliquis. Admission and Anticipated Discharge Date Admission Date: December 08, 2021 Subjective Patient seen and examined at bedside. He was not able to get enough sleep last night due to malfunctioning of the wound VAC. He reports that his pain is well tolerated. Denies any fever or chills. Review of Systems Review of Systems: All systems reviewed & are unremarkable except as noted in Subjective Physical Exam Physical Exam: Constitutional: WD/WN, vitals as above, NAD, sitting up in bed, pleasant, conversing easily Respiratory: normal respiratory effort, lungs clear to auscultation, no wheeze, rales, rhonchi. Normal insp/exp effort, no accessory muscle use Cardiovascular: RRR, no murmur, no edema Vessels: no JVD or carotid bruit Chest: normal inspection of chest Abdomen: normal bowel sounds, soft, nontender, no hepatosplenomegaly Musculoskeletal: Dressing in place in right elbow. Wound VAC in place in left elbow. Skin: no rashes, warm and dry normal turgor Neurologic: Alert oriented x3. Clear speech. No facial droop Psychiatric: A+Ox3, euthymic affect Lymphatic: no cervical or axillary lymphadenopathy : deferred Results & Data Results & Data ([facility]) Vital Signs (Past 12 Hours) Vital Signs Temp Pulse Resp BP Pulse Ox O2 Del Method 12/11/21 15:19 37.3 C 85 16 147/76 H 97 Room Air 12/11/21 11:05 37.8 C H 92 H 16 121/75 97 Room Air 12/11/21 07:34 37.2 C 90 17 120/72 95 Room Air 12/11/21 06:04 37.6 C H Laboratory Results Laboratory Results WBC 7.84 K/ul (4.8-10.8) 12/11/21 07:34 RBC 3.53 M/uL (4.63-6.08) L 12/11/21 07:34 Hgb 9.2 g/dl (14.0-18.0) L 12/11/21 07:34 Hct 29.2 % (40.1-51.0) L 12/11/21 07:34 MCV 82.7 fL (80.0-100.0) 12/11/21 07:34 MCH 26.1 pg (25.0-34.0) 12/11/21 07:34 MCHC 31.5 g/dL (32.0-36.0) L 12/11/21 07:34 RDW Std Deviation 47.7 fL (36.4-46.3) H 12/11/21 07:34 RDW Coeff of Brendon 15.7 % (11.5-14.5) H 12/11/21 07:34 Plt Count 411 K/uL (130-400) H 12/11/21 07:34 MPV 8.9 fL (9.4-12.4) L 12/11/21 07:34 Immature Gran % (Auto) 0.9 % 12/09/21 05:48 Neut % (Auto) 77.8 % 12/09/21 05:48 Lymph % (Auto) 10.8 % 12/09/21 05:48 [place] % (Auto) 9.9 % 12/09/21 05:48 Eos % (Auto) 0.2 % 12/09/21 05:48 Baso % (Auto) 0.4 % 12/09/21 05:48 Neut # (Auto) 6.59 K/uL (1.4-6.5) H 12/09/21 05:48 Lymph # (Auto) 0.92 K/uL (1.2-3.4) L 12/09/21 05:48 [place] # (Auto) 0.84 K/uL (0.24-0.82) H 12/09/21 05:48 Eos # (Auto) 0.02 K/uL (0-0.50) 12/09/21 05:48 Baso # (Auto) 0.03 K/uL (0-0.2) 12/09/21 05:48 Immature Gran # (Auto) 0.08 K/uL (0.00-0.02) H 12/09/21 05:48 ESR > 130 mm/hr (0-20) H 12/09/21 05:48 PT 12.0 Seconds (9.0-12.0) 12/08/21 17:30 INR 1.1 (0.9-1.1) 12/08/21 17:30 APTT 34.0 Seconds (21.0-31.0) H 12/08/21 17:30 PTT Ratio 1.2 12/08/21 17:30 Sodium 137 mmol/L (136-145) 12/11/21 07:34 Potassium 3.8 mmol/L (3.5-5.1) 12/11/21 07:34 Chloride 102 mmol/L (98-107) 12/11/21 07:34 Carbon Dioxide 29 mmol/L (21-32) 12/11/21 07:34 Anion Gap 6 (3-11) 12/11/21 07:34 BUN 16 mg/dl (6-23) 12/11/21 07:34 Creatinine 0.71 mg/dl (0.6-1.4) 12/11/21 07:34 Est Cr Clr Drug Dosing 149.8 ml/min 12/11/21 07:34 Est GFR ( Amer) 123.3 ml/min 12/11/21 07:34 Est GFR (Non-Af Amer) 106.4 ml/min 12/11/21 07:34 BUN/Creatinine Ratio 22.5 (10-20) H 12/11/21 07:34 Glucose 106 mg/dl (70-99(Fasting)) H 12/11/21 07:34 Calcium 8.3 mg/dl (8.5-10.1) L 12/11/21 07:34 Magnesium 2.1 mg/dl (1.7-2.4) 12/09/21 05:48 Total Bilirubin 0.3 mg/dl (0.2-1.0) 12/08/21 17:30 AST 12 U/L (13-39) L 12/08/21 17:30 ALT 16 U/L (7-52) 12/08/21 17:30 Alkaline Phosphatase 60 U/L (34-104) 12/08/21 17:30 C-Reactive Protein 35.04 mg/dl (0-0.5) H 12/09/21 05:48 Total Protein 7.5 gm/dl (6.0-8.3) 12/08/21 17:30 Albumin 3.4 gm/dl (3.4-5.0) 12/08/21 17:30 Globulin 4.1 gm/dl (2.5-4.0) H 12/08/21 17:30 Albumin/Globulin Ratio 0.8 (0.9-2) L 12/08/21 17:30 SARS-CoV-2, RNA, NAAT NEGATIVE (NEGATIVE) 12/08/21 19:16
[2021-12-11] MEDS: ACETAMINOPHEN 500 MG TAB PO SCH (21:49)
[2021-12-11] MEDS: TAMSULOSIN HCL 0.4 MG CAP PO SCH (21:50)
[2021-12-11] MEDS: tiZANidine HCL 4 MG TABLET PO SCH (21:51)
[2021-12-11] MEDS: diphenhydrAMINE Capsule 25 MG CAP PO SCH (21:51)
[2021-12-11] MEDS: ZOLPIDEM TARTRATE 5 MG TAB PO SCH (21:53)
[2021-12-11] MEDS: DAPTOmycin 600 MG in SYRINGE 0 ML IV SCH (21:53)
[2021-12-11] MEDS: SENNA 8.6 MG TAB PO SCH (21:54)
[2021-12-12] MEDS: ACETAMINOPHEN 325 MG TAB PO PRN ×2 (03:20→08:03)
[2021-12-12] MEDS: PIPERACILLIN/TAZOBACTAM 3.375 GM in DEXTROSE 5% 100 ML IV SCH ×2 (06:28→14:47)
[2021-12-12] MEDS: DOCUSATE SODIUM 100 MG CAP PO SCH (07:58)
[2021-12-12] MEDS: PANTOprazole 40 MG TAB PO SCH (08:00)
[2021-12-12] MEDS: MAGNESIUM OXIDE 400 MG TAB PO SCH (08:00)
[2021-12-12] MEDS: ASCORBIC ACID 500 MG TAB PO SCH (08:00)
[2021-12-12] MEDS: GABAPENTIN 100 MG CAP PO SCH (08:00)
[2021-12-12] MEDS: MULTIVITAMIN TAB PO SCH (08:00)
[2021-12-12] MEDS: APIXABAN 2.5 MG TAB PO SCH (08:00)
[2021-12-12] MEDS: PYRIDOXINE HCL 50 MG TAB PO SCH (08:00)
[2021-12-12 08:34] LABS: Basophils # (auto) 0.03 K/uL (0-0.2); Basophils % (auto) 0.4 %; Eosinophils # (auto) 0.05 K/uL (0-0.50); Eosinophils % (auto) 0.7 %; Hematocrit (blood only) 28.6 % (40.1-51.0); Hemoglobin 9.2 g/dl (14.0-18.0); Immature Granulocytes # (auto) 0.24 K/uL (0.00-0.02); Immature Granulocytes % (auto) 3.3 %; Lymphocytes # (auto) 1.05 K/uL (1.2-3.4); Lymphocytes % (auto) 14.3 %; Mean Corpuscular Hemoglobin 26.4 pg (25.0-34.0); Mean Corpuscular Hgb Conc 32.2 g/dL (32.0-36.0); Mean Corpuscular Volume 82.2 fL (80.0-100.0); Monocytes # (auto) 0.79 K/uL (0.24-0.82); Monocytes % (auto) 10.8 %; Neutrophils # (auto) 5.16 K/uL (1.4-6.5); Neutrophils % (auto) 70.5 %; Platelet Count 429 K/uL (130-400); RDW Coefficient of Variation 15.8 % (11.5-14.5); RDW Standard Deviation 47.1 fL (36.4-46.3); Red Blood Count 3.48 M/uL (4.63-6.08); White Blood Count 7.32 K/ul (4.8-10.8)
[2021-12-12 09:02] LABS: BUN Creatinine Ratio 28.3 (10-20); Calcium 8.5 mg/dl (8.5-10.1); Creatinine Clr Calc Pharmacy 200.7 ml/min; Potassium 3.9 mmol/L (3.5-5.1)
--- NOTE | 2021-12-12 16:32 | Discharge Summary ---
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 The patient says he has been having elbow wounds since last August. He is following with wound clinic and orthopedics. He was placed on wound VAC and the wound VAC was removed yesterday. He went to the wound care clinic today, but it was not replaced again. He was in the ER on 12/05/2021 and discharged on Levaquin and amoxicillin because the wounds were draining more, but he is not getting better. The left elbow is draining more. He has some fevers at home; that is the reason he came to the ER again today. Denies any headache. No blurred visions. On and off, he has ringing noise in the ears. No runny nose, no sore throat. No cough. Appetite is down in the last few days. No difficulty swallowing. No chest pain, no shortness of breath, no nausea, no abdominal pain. Normal bowel and bladder movements. Sometimes constipated. Stools are always dark for some time now. Hemodynamics are stable. Admission Exam Per Admitting Provider GENERAL: The patient is of moderate build, not in acute distress. VITAL SIGNS: Temperature 37.1, pulse 99, respiratory rate 18, blood pressure 102/62, oxygen 97% on room air. HEENT: Pupils equal, round and reactive to light. Oral mucosa moist. NECK: No JVD, no neck masses. CARDIOVASCULAR: S1 and S2 heard. Regular rate and rhythm. No murmur, no gallop. RESPIRATORY SYSTEM: Normal AP diameter. No accessory muscle use. No wheezing, no crackles. ABDOMEN: Soft, bowel sounds present, nontender, no distention. CENTRAL NERVOUS SYSTEM: Alert and awake. No facial droop. Speech is clear. Obeys simple commands. EXTREMITIES: Bilateral elbow wounds, deep wounds with drainage seen, some erythema surrounding the wounds. No lower extremity edema seen. Principal Diagnosis Bilateral pressure ulcers wound on elbows s/p bilateral olecranon irrigation and debridement with placement of wound VAC on 12/10 Sepsis POA secondary to above Discharge Exam Constitutional: WD/WN, vitals as above, NAD, sitting up in bed, pleasant, conversing easily Respiratory: normal respiratory effort, lungs clear to auscultation, no wheeze, rales, rhonchi. Normal insp/exp effort, no accessory muscle use Cardiovascular: RRR, no murmur, no edema Vessels: no JVD or carotid bruit Chest: normal inspection of chest Abdomen: normal bowel sounds, soft, nontender, no hepatosplenomegaly Musculoskeletal: Dressing in place in right elbow. Wound VAC in place in left elbow. Skin: no rashes, warm and dry normal turgor Neurologic: Alert oriented x3. Clear speech. No facial droop Psychiatric: A+Ox3, euthymic affect Lymphatic: no cervical or axillary lymphadenopathy : deferred Discharge Data Allergies Allergy/AdvReac Type Severity Reaction Status Date / Time vancomycin Allergy Severe Rash Verified 12/08/21 19:30 amantadine AdvReac Severe CHEST Verified 12/08/21 19:30 PAIN, ANXIETY Consultations 12/08/21 19:05 ED Decision to Admit Stat 12/09/21 08:00 Consult Orthopedic Surgery Routine 12/09/21 15:39 Consult Infectious Diseases Routine Procedures Performed Operation Date: 12/10/21 07:30 Actual Procedures p Right and Left Olecranon Irrigation and Debridement with Placement of Wound Vacs(Bilateral) - Keenan Bass DO Hospital Course (1) Pressure ulcer: (2) Stage III pressure ulcer of left elbow: (3) Stage III pressure ulcer of right elbow: (4) Spastic hemiparesis: Plan 56-year-old male with past medical history significant for cervical ependymoma, status post surgical resection x2 and radiation treatment with residual paraparesis and spastic hemiplegia, wheelchair bound, iron-deficiency anemia, GERD, history of DVT, history of pulmonary hypertension, presents with bilateral elbow wounds. He had bilateral pressure ulcer on for several months and was following up at wound clinic. He was on Levaquin and amoxicillin for the same. The wound continued to get worse and which prompted the wound care nurse to send him to the hospital. Patient's left elbow wound had significant swelling and increasing purulence compared to his right elbow. He was febrile during the hospitalization as well. Orthopedic was consulted and patient underwent I&D of bilateral elbow on 12/10 and a wound VAC was placed. Wound culture was sent for microbiology. Culture from wound care clinic grew group B streptococcus and intraoperative wound grew Corynebacterium. Patient was on Zosyn and daptomycin while he was hospitalized. Infectious disease was consulted for antibiotic recommendations. Patient was discharged on linezolid 600 mg twice daily for 14 days for Corynebacterium and group A streptococcus. He was asked to complete his course of Levaquin. Patient has wound care VAC at home and has home nurse comes 3 times a week to check on him. He also has a follow-up with wound care clinic on 12/15. Total Time Total Time Spent Total Time Spent (In Minutes): 35 Total Time Includes: Examination of the Patient, Discharge Planning, Medication Reconciliation, Communication With Other Providers and Other Discharge Plan Discharge Items Patient Disposition: Home - Home Health Services Reason For Visit: INFECTION Discharge Diagnosis: Bilateral pressure ulcers wound on elbows s/p bilateral olecranon irrigation and debridement with placement of wound VAC on 12/10 Sepsis POA secondary to above Activity: Resume your previous activity Non-emergency contact: Primary Care Provider Call non-emergency contact if: you have any medication questions and your symptoms worsen Follow-up/Referrals: Alexis Yost MD [Primary Care Provider] - 12/15/21 12:00 pm (Date & Time 12/15/2021 12:00 PM Provider Alexis Yost MD Department Family Medicine [facility] ) Diet: Regular Addtl Attending Provider Instructions: You were admitted to the hospital with bilateral pressure ulcer wound on both elbows. You are prescribed linezolid (antibiotics) 600 mg twice daily for next 14 days. Please continue your course of levofloxacin. Stop Augmentin. Please continue wound care with wound VAC and follow-up with wound clinic as well. Please follow-up with your primary care doctor as well. Pending Studies at Discharge: No Stand-Alone Forms: My [employer], Smoking Cessation Medications and DC Order Prescriptions: New linezolid 600 mg Tablet 600 mg PO BID 14 Days Qty: 28 0RF zolpidem 5 mg Tablet 5 mg PO HS PRN (Reason: insommia) Qty: 10 0RF Continued gabapentin 100 mg capsule 100 mg PO BID Rx Instructions: start taking 3 times a day on 12/18/21 Eliquis 2.5 mg tablet 2.5 mg PO BID furosemide 20 mg tablet 20 mg PO DAILY PRN (Reason: fluid accumulation or weight gain) menthol-zinc oxide [Calmoseptine] 0.44-20.6 % ointment 1 applic topical QID PRN (Reason: skin rash) ascorbic acid (vitamin C) [Vitamin C] 1,000 mg Tablet 1 g PO QAM tizanidine 4 mg Tablet 8 mg PO HS Rx Instructions: take 3 tablets at bedtime pyridoxine (vitamin B6) 100 mg Tablet 100 mg PO QAM magnesium oxide 400 mg magnesium Tablet 400 mg PO Q OTHER DAY tamsulosin 0.4 mg Capsule 0.4 mg PO HS acetaminophen [Tylenol] 325 mg Capsule 650 mg PO DAILY PRN (Reason: Pain) levofloxacin 750 mg tablet 750 mg PO DAILY 7 Days Qty: 7 0RF Rx Instructions: ordered 12/05/21 take for 7 days omeprazole 40 mg Capsule,Delayed Release(Dr/Ec) 40 mg PO DAILY diphenhydramine-acetaminophen [Tylenol PM Extra Strength] 25-500 mg Tablet 2 tab PO HS Discontinued amoxicillin 500 mg capsule 500 mg PO Q8H Qty: 7 0RF Rx Instructions: ordered 12/05/21 to take for 3 days Discharge Orders: Discharge Order (Routine); Ordered 12/12/21 Ordered By: Derik Hartley Admission Data Admit Date/Time: 12/08/21 20:19 Attending Provider: Derik Hartley Admit Provider: Ifeanyi Larose Primary Care Provider: Alexis Yost Other Providers: Ifeanyi Larose ; Lamont Ruffin ; Michael Saenz ; Dieudonne Tanner ; Julio St I. ; Pepe Kincaid II ; Shanda Newell ; Sacha Paul ; Jose Negron ; Heri Nelson Other Interventions: Discharge Summary Assessment (RN) Last Done: 12/12/21 16:17
[2021-12-12] MEDS ORDERED: LINEZOLID 600 MG TAB PO SCH (21:00)
[2021-12-14 14:41] LABS: CK Total 1003 U/L (44-196); CK-MB 0 % (<5); CK-MM 100 % (95-100)
--- NOTE | 2021-12-19 11:30 | Coding Query ---
DEBRIDEMENT DOCUMENTATION To promote full compliance with coding requirements relating to patient care, physician participation is requested in all cases of management accountant uncertainty. Please assist us with the question(s) below: Please place an X in the parenthesis (x). If other, please document the finding: Bilateral elbow debridements done 12/10/21 Type of Debridement: ( ) Excisional Debridement- Cutting away necrotic, devitalized tissue or slough to the level of viable tissue using a sharp instrument (i.e. scalpel, scissors, etc.) (x ) Non Excisional Debridement- The removal of necrotic, devitalized tissue or slough by means of scraping, mechanical brushing, flushing, or washing (i.e. irrigation,whirlpool);minor removal of loose fragments. ( ) Other (please specify): Instrument Used: ( ) Scissors ( ) Scalpel (x ) Curette ( ) Other (please specify): Depth of Debridement: ( ) Skin ( x) Skin and Subcutaneous Tissue ( ) Skin, Subcutaneous Tissue and Muscle ( ) Skin, Subcutaneous Tissue, Muscle and Bone ( ) Other (please specify): Please Specify the Size of Debridement in cm2: Thank you SOFÍA Dominguez CCS
== END 2021-12-12 17:58 | disposition home health service (06) | DRG 853 ==
LOC: ED 17:12 → 3W 20:19